=== PATIENT | male | born 1965 | race Caucasian/White ===

== ENCOUNTER → 2017-10-15 | Outpatient (CLI) | payer MEDICARE, SELFPAY | PROVIDERS: Visit Provider Internal Medicine Hematology & Oncology | DX: C34.82 Malignant neoplasm of overlapping sites of left bronchus and lung (principal); Z45.2 Encounter for adjustment and management of vascular access device; I82.409 Acute embolism and thrombosis of unspecified deep veins of unspecified lower extremity; Z03.89 Encounter for observation for other suspected diseases and conditions ruled out | CPT/HCPCS: 80053; 85025; 85610; J1642 ==

== ENCOUNTER → 2017-10-15 | Outpatient (CLI) | payer MEDICARE, SELFPAY | PROVIDERS: Visit Provider Internal Medicine Hematology & Oncology | DX: C34.82 Malignant neoplasm of overlapping sites of left bronchus and lung (principal); Z03.89 Encounter for observation for other suspected diseases and conditions ruled out | CPT/HCPCS: 71260; 74177; Q9967 ==

== ENCOUNTER 2017-11-13 22:08 | Observation (INO) ==
--- NOTE | 2017-11-13 22:39 | Emergency Department Note ---
ED Disposition Clinical Impression: Febrile illness, acute Disposition: Admitted as Observation Condition on Discharge: Good - Critical Care Critical Care Time: No Attestation: On , the high probability of a clinically significant, sudden or life threatening deterioration of the following system(s) required my full and direct attention, intervention and personal management. The time I documented below is in addition to time spent performing reported procedures but includes the following listed in this critical care notation. Medical Decision Making - Medical Records Medical records reviewed: Yes: I reviewed the patient's medical records. Vital Signs: 11/13/17 22:12 11/13/17 23:54 Temperature 101.2 F H 99.6 F Temperature Source Oral Oral Pulse Rate [Right Brachial] 91 H 78 Respiratory Rate 16 16 Blood Pressure [Right Arm] 132/61 117/63 Blood Pressure Mean [Right Arm] 84 81 Blood Pressure Source [Right Arm] Automatic Cuff Blood Pressure Position [Right Arm] Supine 02 Sat by Pulse Oximetry 100 98 Oxygen Delivery Method Room Air - Lab Data Lab results reviewed: Yes: I reviewed the patient's lab results. Lab Results 11/13/17 22:35: WBC 7.6, RBC 3.56 L, Hgb 10.1 L, Hct 30.0 L, MCV 84.1, MCH 28.3 , MCHC 33.6, RDW 15.6, Plt Count 217, MPV 7.0 L, Neut % (Auto) 81.5 H, Lymph % ( Auto) 10.9, [place] % (Auto) 6.3, Eos % (Auto) 1.1, Baso % (Auto) 0.2, Neut # (Auto ) 6.2, Lymph # (Auto) 0.8, [place] # (Auto) 0.5, Eos # (Auto) 0.1, Baso # (Auto) 0.0 11/13/17 22:35: Sodium 137, Potassium 3.5, Chloride 102, Carbon Dioxide 32, Anion Gap 6.5, BUN 20 H, Creatinine 1.28, Estimated Creat Clear 76, Estimated GFR 59, Est GFR ( Amer) 71, Glucose 111 H, Calcium 8.6, Total Bilirubin 0.7, AST 19, ALT 13, Alkaline Phosphatase 131 H, Total Protein 6.4, Albumin 3.2 L, Globulin 3.2, Albumin/Globulin Ratio 1.0 L 11/13/17 22:35: Lactic Acid 1.2 01/27/18 22:35: Influenza Type A Ag Negative, Influenza Type B Ag Negative Result diagrams: 11/13/17 22:35 11/13/17 22:35 Orders (Tests/Meds): ED MEDICATIONS Discontinued Medications Generic Name Dose Route Start Last Admin Trade Name Fransisca PRN Reason Stop Dose Admin Ibuprofen 600 mg 11/13/17 22:22 11/13/17 22:34 Motrin 600mg Tablet PO 11/13/17 22:23 600 mg ONCE ONE Administration ORDERS Category Date Time Status XR chest 2V Stat Exams 11/13/17 22:21 Taken UA [Urinalysis and Microscopic] Stat Lab 11/13/17 22:41 Ordered Blood Culture Stat Micro 11/13/17 22:35 Received - Radiology Data #1 Image(s): Chest Image Reviewed: Yes I reviewed the patient's radiology image Preliminary Findings: Normal/NAD - Physician Consults Physician Consulted: stephanie Reason -: Admission - Carlos Inquiry Pt receiving controlled substance: No Fever HPI - General Chief Complaint: Fever Stated Complaint: Lung Cancer w/ Body Pain and Fever Time Seen by Provider: 11/13/17 22:38 Mode of Arrival: Wheelchair Source of Information: Patient, Spouse, Medical Record Limitations: No Limitations Description of Symptoms (Recalled from ER Triage Doc. by RN): BODYACHES, FEVER. CURRENTLY UNDER RADIATION FOR LUNG CANCER - History of Present Illness HPI Narrative: over the last 2 days achey with fever but no vomiting or diarrhea- has known lung cancer with radiation therapy complaint: fever Onset (ago): day(s) Context: on immunosuppressant(s) Associated symptoms: myalgias, sore throat Relieving factors: acetaminophen - Related Data Allergies Allergy/AdvReac Type Severity Reaction Status Date / Time No Known Allergies Allergy Verified 11/13/17 22:20 [facility] History I have reviewed the patient's past medical history: Yes - *Social History Alcohol Intake: never - Psychiatric History Expresses thoughts of harming self/others: None Suicide Plan Description: No Plan ROS Obtained: Yes All systems reviewed & no additional complaints - Constitutional Constitutional: Reports chills, Reports fever(s), Reports malaise - Eyes Eyes: Denies change in vision - ENT Ears, Nose, Mouth, and Throat: Denies sore throat - Cardiovascular Cardiovascular: Denies chest pain - Respiratory Respiratory: Yes cough, No coughing up blood - Genitourinary Male Genitourinary: Denies hematuria - Musculoskeletal Musculoskeletal: Reports joint pain, Denies joint swelling, Reports muscle aches - Integumentary/Breasts Skin/Breast: Denies rash - Neurologic Neurologic: Denies seizure-like activity Physical Exam - General General appearance: alert, in no apparent distress - Head Head exam: normocephalic - Eye Eye exam: Present: PERRL, EOMI. Absent: scleral icterus - ENT ENT exam: Present: mucous membranes dry - Neck Neck exam: Present: trachea midline. Absent: meningismus - Respiratory Respiratory exam: Present: normal lung sounds bilaterally. Absent: respiratory distress - Cardiovascular Cardiovascular exam: Present: regular rate, systolic murmur. Absent: rubs - Abdominal Exam Abdominal exam: Present: soft - Extremities Exam Extremities exam: Present: full ROM - Back Exam Back exam: Absent: CVA tenderness (R) - Neurological Exam Neurological exam: Present: alert, oriented X3, CN II-XII intact - Skin Skin exam: Absent: rash
[2017-11-13 22:55] LABS: Basophils % 0.2 % (0.1-2.0); Eosinophils # 0.1 K/mm3 (0.0-0.4); Eosinophils % 1.1 % (0.1-12.0); Hemoglobin 10.1 g/dL (14.1-18.0); Lymphocytes # 0.8 K/mm3 (0.7-4.5); Lymphocytes % 10.9 K/mm3 (10-50); Mean Corpuscular HGB Conc 33.6 g/dL (31.8-35.4); Mean Corpuscular Hemoglobin 28.3 pg (27.0-31.2); Mean Corpuscular Volume 84.1 fl (80-94); Monocytes # 0.5 K/mm3 (0.1-1.0); Monocytes % 6.3 % (1.7-9.3); Neutrophils # 6.2 K/mm3 (1.8-7.8); Neutrophils % 81.5 % (37.0-80.0); Platelet Count 217 K/mm3 (142-424); Red Blood Count 3.56 M/mm3 (4.60-6.20); Red Cell Distribution Width 15.6 % (11.5-17.5); White Blood Count 7.6 K/mm3 (4.8-10.8)
[2017-11-13 23:08] LABS: Anion Gap 6.5 mEq/L (5-15); Bilirubin,Total 0.7 mg/dL (0.2-1.0); Calcium 8.6 mg/dL (8.5-10.1); Potassium 3.5 mmoL/L (3.5-5.1)
[2017-11-13 23:09] LABS: Albumin Level 3.2 gm/dL (3.4-5.0); Globulin 3.2 gm/dl (1.3-3.2); Total Protein,Serum 6.4 gm/dL (6.4-8.2)
[2017-11-14 06:22] LABS: Basophils % 0.2 % (0.1-2.0); Eosinophils # 0.2 K/mm3 (0.0-0.4); Eosinophils % 3.7 % (0.1-12.0); Hemoglobin 9.4 g/dL (14.1-18.0); Lymphocytes # 0.9 K/mm3 (0.7-4.5); Lymphocytes % 18.1 K/mm3 (10-50); Mean Corpuscular HGB Conc 33.4 g/dL (31.8-35.4); Mean Corpuscular Hemoglobin 28.2 pg (27.0-31.2); Mean Corpuscular Volume 84.6 fl (80-94); Mean Platelet Volume 7.3 fl (7.4-10.4); Monocytes # 0.4 K/mm3 (0.1-1.0); Monocytes % 9.2 % (1.7-9.3); Neutrophils # 3.2 K/mm3 (1.8-7.8); Neutrophils % 68.7 % (37.0-80.0); Platelet Count 195 K/mm3 (142-424); Red Blood Count 3.33 M/mm3 (4.60-6.20); Red Cell Distribution Width 15.5 % (11.5-17.5); White Blood Count 4.7 K/mm3 (4.8-10.8)
[2017-11-14 06:34] LABS: Hematocrit 28.1 % (42.0-52.0)
[2017-11-14 06:39] LABS: Anion Gap 8.9 mEq/L (5-15); Potassium 3.9 mmoL/L (3.5-5.1)
--- NOTE | 2017-11-14 08:51 | History & Physical Report ---
*Admission Date: 11/13/17 *Chief complaint: fever and muscle aches *History of present illness: Heart his is a 51-year-old white male with a history of lung cancer with metastases to the brain that just started back on a repeat course of radiation therapy last week. He is scheduled for 5 more treatment this coming week. Since resuming his treatments he has generally not felt well but nothing specific until last night when he became weak and developed fever, chills, and muscle aches in his lower back and hips. He did have a slight nonproductive cough. No sore throat congestion. No vomiting or diarrhea. He presented to the emergency room with these complaints and on workup, his white count was normal but had a left shift.. His chest x-ray interpreted in the ER as no active disease but per the radiologist is suspicious of a left lower lobe infiltrate. Flu test in the ER was negative. [facility] History Medical History: Reports:: Cancer (primary lung with brain mets), Deep Vein Thrombosis, Hypertension Comment: Resection of brain tumor - *Social History Educational Level: Completed High School Smoking Status: Never smoker Alcohol Intake: never Occupational Status: disabled Household Members: spouse - Psychiatric History Expresses thoughts of harming self/others: None Suicide Plan Description: No Plan *Family Hx:: Hypertension Comment: Arthritis Review of Systems - Constitutional Reports body ache(s), Reports chills, Reports malaise - Eyes Denies blurry vision, Denies double vision - ENT Reports change in voice, Denies nasal congestion, Denies nasal discharge, Denies sore throat - *Cardiovascular Denies chest pain, Denies shortness of breath - *Respiratory Reports cough (dry), Denies coughing up blood - *Gastrointestinal Denies abdominal pain, Denies heartburn, Denies nausea, Denies vomiting Comments: decreased appetite since start of radiation treatments last week - *Genitourinary Denies difficulty urinating, Denies painful urination - *Musculoskeletal Reports body aches - *Neurologic Denies dizziness, Denies headache(s), Denies seizure-like activity Meds Home Medications Medication Instructions Recorded Confirmed Type Erlotinib HCl [Tarceva] 150 mg PO DAILY 11/14/17 11/14/17 History Folic Acid [Folic Acid 1mg tablet] 1 mg PO DAILY 11/14/17 11/14/17 History Magnesium Oxide [Magox 400] 400 mg PO BID 11/14/17 11/14/17 History Minocycline HCl 100 mg PO DAILY 11/14/17 11/14/17 History Ondansetron HCl [Ondansetron 8mg 8 mg PO Q8HP PRN 11/14/17 11/14/17 History Tab] Oxycodone HCl/Acetaminophen 1 tab PO Q6HP PRN 11/14/17 11/14/17 History [Percocet 5/325mg tablet] Pantoprazole Sodium [Protonix 40mg 40 mg PO DAILY 11/14/17 11/14/17 History tablet] Potassium Chloride [Klor-con 20 20 meq PO DAILY 11/14/17 11/14/17 History mEq tablet] Warfarin Sodium 5 mg PO DAILY 11/14/17 11/14/17 History Allergies Allergy/AdvReac Type Severity Reaction Status Date / Time No Known Allergies Allergy Verified 11/13/17 22:20 Exam Vital signs and Labs for Last 24 Hours: Temp Pulse Resp BP Pulse Ox 97.9 F 67 16 114/49 98 11/14/17 08:00 11/14/17 08:00 11/14/17 08:00 11/14/17 08:00 11/14/17 08:00 Laboratory Results - last 24 hr 11/14/17 05:55: WBC 4.7 L D, RBC 3.33 L, Hgb 9.4 L, Hct 28.1 L, MCV 84.6, MCH 28.2, MCHC 33.4, RDW 15.5, Plt Count 195, MPV 7.3 L, Neut % (Auto) 68.7, Lymph % (Auto) 18.1, [place] % (Auto) 9.2, Eos % (Auto) 3.7, Baso % (Auto) 0.2, Neut # ( Auto) 3.2, Lymph # (Auto) 0.9, [place] # (Auto) 0.4, Eos # (Auto) 0.2, Baso # (Auto ) 0.0 11/14/17 05:55: Sodium 143, Potassium 3.9, Chloride 108 H, Carbon Dioxide 30, Anion Gap 8.9, BUN 20 H, Creatinine 1.24, Estimated Creat Clear 79, Estimated GFR 61, Est GFR ( Amer) 74, Glucose 90 Narrative: Laboratory Results - last 24 hr 11/13/17 22:35: WBC 7.6, RBC 3.56 L, Hgb 10.1 L, Hct 30.0 L, MCV 84.1, MCH 28.3 , MCHC 33.6, RDW 15.6, Plt Count 217, MPV 7.0 L, Neut % (Auto) 81.5 H, Lymph % ( Auto) 10.9, [place] % (Auto) 6.3, Eos % (Auto) 1.1, Baso % (Auto) 0.2, Neut # (Auto ) 6.2, Lymph # (Auto) 0.8, [place] # (Auto) 0.5, Eos # (Auto) 0.1, Baso # (Auto) 0.0 11/13/17 22:35: Sodium 137, Potassium 3.5, Chloride 102, Carbon Dioxide 32, Anion Gap 6.5, BUN 20 H, Creatinine 1.28, Estimated Creat Clear 76, Estimated GFR 59, Est GFR ( Amer) 71, Glucose 111 H, Calcium 8.6, Total Bilirubin 0.7, AST 19, ALT 13, Alkaline Phosphatase 131 H, Total Protein 6.4, Albumin 3.2 L, Globulin 3.2, Albumin/Globulin Ratio 1.0 L 11/13/17 22:35: Lactic Acid 1.2 11/13/17 22:35: Influenza Type A Ag Negative, Influenza Type B Ag Negative 11/14/17 05:55: WBC 4.7 L D, RBC 3.33 L, Hgb 9.4 L, Hct 28.1 L, MCV 84.6, MCH 28.2, MCHC 33.4, RDW 15.5, Plt Count 195, MPV 7.3 L, Neut % (Auto) 68.7, Lymph % (Auto) 18.1, [place] % (Auto) 9.2, Eos % (Auto) 3.7, Baso % (Auto) 0.2, Neut # ( Auto) 3.2, Lymph # (Auto) 0.9, [place] # (Auto) 0.4, Eos # (Auto) 0.2, Baso # (Auto ) 0.0 11/14/17 05:55: Sodium 143, Potassium 3.9, Chloride 108 H, Carbon Dioxide 30, Anion Gap 8.9, BUN 20 H, Creatinine 1.24, Estimated Creat Clear 79, Estimated GFR 61, Est GFR ( Amer) 74, Glucose 90 11/14/17 09:55: Urine Color Yellow, Urine Appearance Clear, Urine pH 6.0, Ur Specific [place] 1.015, Urine Protein Negative, Urine Glucose (UA) Negative, Urine Ketones Negative, Urine Blood Negative, Urine Nitrate Negative, Urine Bilirubin Negative, Urine Urobilinogen 0.2, Ur Leukocyte Esterase Negative, Urine WBC Occasional, Ur Squamous Epith Cells Occasional, Urine Bacteria Trace 11/14/17 11:57: PT 59.5 H, INR 5.42 H - *Routine HEENT Exam Head: Present: normocephalic Eye: Present: EOMI, PERRL. Absent: scleral injection ENT: Present: mucous membranes dry, nares patent. Absent: sinus tenderness - *Routine Respiratory Exam Comments: coarse BS, no rales or wheezes - *Routine Cardiovascular Exam Present: RRR. Absent: murmur - *Routine Abdominal Exam Present: soft. Absent: tenderness, distended H&P: Result - Labs Labs: Short CBC 11/14/17 Range/Units 05:55 WBC 4.7 L D (4.8-10.8) K/mm3 Hgb 9.4 L (14.1-18.0) g/dL Hct 28.1 L (42.0-52.0) % Plt Count 195 (142-424) K/mm3 [facility] 11/14/17 05:55 Sodium 143 Potassium 3.9 Chloride 108 H Carbon Dioxide 30 BUN 20 H Creatinine 1.24 Glucose 90 Assessment and Plan (1) Pneumonia Current visit: Yes Status: Acute Category: Medical Code(s): J18.9 - Pneumonia, unspecified organism (2) Lung cancer metastatic to brain Current visit: Yes Status: Acute Category: Medical Code(s): C34.90 - Malignant neoplasm of unspecified part of unspecified bronchus or lung; C79.31 - Secondary malignant neoplasm of brain - Assessment and plan all Dx Assessment and Plan for all problems:: He is empirically started on Rocepin and Zithromax. WBC shows slight leukopenia today therefore will check Respiratory PCR panel to r/o flu.
[2017-11-14 10:11] LABS: Microscopic, Urine URINE MICROSCOPIC (MICROSCOPIC)
[2017-11-14 10:52] LABS: Appearance,Urine CLEAR (Clear); Bilirubin,Urine Negative (Negative); Blood, Urine Negative (Negative); Color,Urine YELLOW (Yellow); Glucose,Urine (UA) Negative (Negative); Ketones,Urine Negative (Negative); Leukocyte Esterase,Urine Negative (Negative); Protein,Urine Negative (Negative); Specific Gravity, Urine 1.015 (1.005-1.030); Urobilinogen,Urine 0.2 EU/dl (0.2)
[2017-11-14 11:17] LABS: Bacteria,Urine Trace /lpf; Squamous Epithelial Cell,Urine Occasional #/hpf (0-5); WBC,Urine Occasional #/hpf (0-3)
--- NOTE | 2017-11-14 11:20 | Pharmacy Consult Notes ---
[facility] Pharmacy VTE Monitoring - Patient Demographics Admission date: 11/14/17 Report Date: 11/14/17 Time: 11:19 Allergies/Adverse Reactions: Patient Allergies No Known Allergies Allergy (Verified 11/13/17 22:20) Height: 1.83 m Weight: 80.739 kg Patient Problems: Current Active Problems Febrile illness, acute (Acute) - VTE Risk Labs: VTE Related Lab Results Hgb 9.4 g/dL (14.1-18.0) L 11/14/17 05:55 Hct 28.1 % (42.0-52.0) L 11/14/17 05:55 Plt Count 195 K/mm3 (142-424) 11/14/17 05:55 BUN 20 mg/dL (7-18) H 11/14/17 05:55 Creatinine 1.24 mg/dL (0.70-1.30) 11/14/17 05:55 Estimated Creat Clear 79 mL/min (0-300) 11/14/17 05:55 VTE Score: 3 VTE Risk Level: Low Risk - Prophylaxis Types of VTE Prophylaxis: TEDS Knee High Location of Applied Device: Bilateral Lower Extremeties - VTE Diagnosis Confirmed Comment: SUKI NEWMAN
[2017-11-14 12:16] LABS: INR 5.42 (0.9-1.1); Prothrombin Time 59.5 seconds (9.4-11.8)
[2017-11-14 15:16] LABS: Coronavirus 229E Not Detected (NotDetected); Coronavirus NL63 Not Detected (NotDetected); Coronavirus OC43 Not Detected (NotDetected); Coronovirus HKU1,PCR Not Detected (NotDetected)
[2017-11-15 06:44] LABS: Basophils % 0.1 % (0.1-2.0); Eosinophils # 0.1 K/mm3 (0.0-0.4); Eosinophils % 1.5 % (0.1-12.0); Hematocrit 28.1 % (42.0-52.0); Hemoglobin 9.3 g/dL (14.1-18.0); Mean Corpuscular Volume 84.8 fl (80-94); Mean Platelet Volume 7.3 fl (7.4-10.4); Monocytes # 0.4 K/mm3 (0.1-1.0); Monocytes % 8.4 % (1.7-9.3); Neutrophils # 3.7 K/mm3 (1.8-7.8); Platelet Count 193 K/mm3 (142-424); Red Blood Count 3.32 M/mm3 (4.60-6.20); Red Cell Distribution Width 15.6 % (11.5-17.5); White Blood Count 5.2 K/mm3 (4.8-10.8)
[2017-11-15 06:58] LABS: Anion Gap 10.6 mEq/L (5-15); Potassium 3.6 mmoL/L (3.5-5.1)
--- NOTE | 2017-11-15 08:24 | Discharge Summary ---
General - General Admission date: 11/13/17 <Kirill Stewart - 11/15/17 08:25> Discharge date: 11/15/17 <Анна Flores - 11/16/17 13:55> HPI HPI: Brady is a 51-year-old white male with a history of lung cancer with metastases to the brain that just started back on a repeat course of radiation therapy last week. He is scheduled for 5 more treatment this coming week. Since resuming his treatments he has generally not felt well but nothing specific until last night when he became weak and developed fever, chills, and muscle aches in his lower back and hips. He did have a slight nonproductive cough. No sore throat congestion. No vomiting or diarrhea. He presented to the emergency room with these complaints and on workup, his white count was normal but had a left shift.. His chest x-ray was interpreted in the ER as no active disease but per the radiologist was suspicious of a left lower lobe infiltrate. Flu test in the ER was negative. He was admitted for further treatment. <TerryKirill Sean - 11/15/17 17:56> Objective Vital signs: Temp Pulse Resp BP Pulse Ox 99.5 F 94 H 20 128/58 98 11/15/17 08:00 11/15/17 08:00 11/15/17 08:00 11/15/17 08:00 11/15/17 08:00 <Анна Flores - 11/16/17 13:55> Temp Pulse Resp BP Pulse Ox 98.3 F 78 18 96/43 95 11/15/17 05:18 11/15/17 06:01 11/15/17 05:18 11/15/17 05:18 11/15/17 05:18 <Kirill Stewart - 11/15/17 08:25> Narrative: - *Routine HEENT Exam Head: Present: normocephalic Eye: Present: EOMI, PERRL. Absent: scleral injection ENT: Present: mucous membranes dry, nares patent. Absent: sinus tenderness - *Routine Respiratory Exam Comments: coarse BS, no rales or wheezes - *Routine Cardiovascular Exam Present: RRR. Absent: murmur - *Routine Abdominal Exam Present: soft. Absent: tenderness, distended <Анна Flores - 11/16/17 13:55> Hospital Course Hospital Course: He was empirically started on Rocepin and Zithromax. WBC showed slight leukopenia, therefore a Respiratory PCR panel was ordered to r/o flu. PCR panel was negative. CXR did show a left basilar pneumonia. The patient improved and was stable to be discharged home on zithromax and cefuroxime as well as duonebs. He will f/u in the office of [facility]. <Анна Flores - 11/16/17 13:55> Results Labs on day of discharge: Preliminary micro results at discharge 11/14/17 15:05 Sputum Culture - Preliminary Sputum - Expectorated Sputum <Анна Flores - 11/16/17 13:55> Labs from last 24 hours 11/15/17 11/15/17 11/14/17 06:15 06:15 15:07 WBC 5.2 RBC 3.32 L Hgb 9.3 L Hct 28.1 L MCV 84.8 MCH 28.0 MCHC 33.0 RDW 15.6 Plt Count 193 MPV 7.3 L Neut % (Auto) 70.0 Lymph % (Auto) 20.0 [place] % (Auto) 8.4 Eos % (Auto) 1.5 Baso % (Auto) 0.1 Neut # (Auto) 3.7 Lymph # (Auto) 1.0 [place] # (Auto) 0.4 Eos # (Auto) 0.1 Baso # (Auto) 0.0 Sodium 142 Potassium 3.6 Chloride 106 Carbon Dioxide 29 Anion Gap 10.6 BUN 13 D Creatinine 1.11 Estimated Creat Clear 88 Estimated GFR 69 Est GFR ( Amer) 84 Glucose 95 Chlamy pneumoniae PCR Not detected Adenovirus (PCR) Not detected B.parapertussis DNA PCR Not detected Coronavirus OC43 (PCR) Not detected Coronavirus HKU1 (PCR) Not detected Coronavirus 229E (PCR) Not detected Coronavirus NL63 (PCR) Not detected Human Metapneumovir PCR Not detected Influenza A (H1) PCR Not detected Influ A (H1N1/09) PCR Not detected Influenza A (H3) PCR Not detected Influenza Type A (PCR) Not detected Influenza Type B (PCR) Not detected M. pneumoniae (PCR) Not detected Parainfluenza 1 (PCR) Not detected Parainfluenza 2 (PCR) Not detected Parainfluenza 3 (PCR) Not detected Parainfluenza 4 (PCR) Not detected RSV (PCR) Not detected Entero/Rhino (PCR) Not detected <Kirill Stewart - 11/15/17 08:25> DS: Diagnosis - Discharge Diagnosis (1) Pneumonia Status: Acute (2) Lung cancer metastatic to brain Status: Acute <Kirill Stewart - 11/15/17 17:54> Meds Home Medications Medication Instructions Recorded Confirmed Type Erlotinib HCl [Tarceva] 150 mg PO DAILY 11/14/17 11/14/17 History Folic Acid [Folic Acid 1mg tablet] 1 mg PO DAILY 11/14/17 11/14/17 History Magnesium Oxide [Magox 400] 400 mg PO BID 11/14/17 11/14/17 History Minocycline HCl 100 mg PO DAILY 11/14/17 11/14/17 History Ondansetron HCl [Ondansetron 8mg 8 mg PO Q8HP PRN 11/14/17 11/14/17 History Tab] Oxycodone HCl/Acetaminophen 1 tab PO Q6HP PRN 11/14/17 11/14/17 History [Percocet 5/325mg tablet] Pantoprazole Sodium [Protonix 40mg 40 mg PO DAILY 11/14/17 11/14/17 History tablet] Potassium Chloride [Klor-con 20 20 meq PO DAILY 11/14/17 11/14/17 History mEq tablet] Warfarin Sodium 5 mg PO DAILY 11/14/17 11/14/17 History <Анна Flores - 11/16/17 13:55> Allergies Allergy/AdvReac Type Severity Reaction Status Date / Time No Known Allergies Allergy Verified 11/13/17 22:20 <Анна Flores - 11/16/17 13:55> Discharge Plan - Patient Discharge Instructions ACTIVITY: Continue current activity <Kirill Stewart - 11/15/17 08:25> DIET: continue same diet <Kirill Stewart - 11/15/17 08:25> Additional Instructions: Hold Warfarin and recheck INR in 2 days <Анна Flores - 11/16/17 13:55> Patient Instructions: Coumadin Vitamin K/ Diet, Coumadin Therapy Booklet < Анна Flores - 11/16/17 13:55> - Follow up Plan Follow up with: Kirill Stewart MD [Primary Care Provider] - 1 week < Анна Flores - 11/16/17 13:55> Disposition: Home, Self-Care <Анна Flores - 11/16/17 13:55> Home Medications: Home Medications Medication Instructions Recorded Confirmed Type Erlotinib HCl [Tarceva] 150 mg PO DAILY 11/14/17 11/14/17 History Folic Acid [Folic Acid 1mg tablet] 1 mg PO DAILY 11/14/17 11/14/17 History Magnesium Oxide [Magox 400] 400 mg PO BID 11/14/17 11/14/17 History Minocycline HCl 100 mg PO DAILY 11/14/17 11/14/17 History Ondansetron HCl [Ondansetron 8mg 8 mg PO Q8HP PRN 11/14/17 11/14/17 History Tab] Oxycodone HCl/Acetaminophen 1 tab PO Q6HP PRN 11/14/17 11/14/17 History [Percocet 5/325mg tablet] Pantoprazole Sodium [Protonix 40mg 40 mg PO DAILY 11/14/17 11/14/17 History tablet] Potassium Chloride [Klor-con 20 20 meq PO DAILY 11/14/17 11/14/17 History mEq tablet] Warfarin Sodium 5 mg PO DAILY 11/14/17 11/14/17 History <Анна Flores - 11/16/17 13:55> Prescriptions/Medication Reconciliation: New Azithromycin [Zithromax 250mg tab] 250 mg PO DAILY #3 tab cefUROXime axetil [Cefuroxime 500mg Tab] 500 mg PO BID #16 tab Ipratropium/Albuterol Sulfate [Duoneb 3mL neb] 3 ml IH TID #30 neb Continue Potassium Chloride [Klor-con 20 mEq tablet] 20 meq PO DAILY Warfarin Sodium 5 mg PO DAILY Oxycodone HCl/Acetaminophen [Percocet 5/325mg tablet] 1 tab PO Q6HP PRN PRN Reason: Moderate Pain Minocycline HCl 100 mg PO DAILY Magnesium Oxide [Magox 400] 400 mg PO BID Folic Acid [Folic Acid 1mg tablet] 1 mg PO DAILY Erlotinib HCl [Tarceva] 150 mg PO DAILY Pantoprazole Sodium [Protonix 40mg tablet] 40 mg PO DAILY Ondansetron HCl [Ondansetron 8mg Tab] 8 mg PO Q8HP PRN PRN Reason: Nausea And Vomiting <Анна Flores - 11/16/17 13:55>
[2017-11-15 08:49] VITALS: BP 128/58
== END 2017-11-15 10:46 | disposition home or self-care (01) ==
LOC: 2ND 22:08 → ER 22:08 → 2ND 11-14 00:40
PROVIDERS: ADMIT Family Medicine; ATTEND Family Medicine

== ENCOUNTER 2017-11-18 11:00 | Outpatient (CLI) | payer MEDICARE, SELFPAY ==
[2017-11-18 11:20] VITALS: BP 114/63; PULSE 84; RESP 18; TEMP 37; O2SAT 98
[2017-11-18 11:22] VITALS: BMI 24.1
[2017-11-18 11:45] LABS: INR 1.18 (0.9-1.1); Prothrombin Time 12.8 seconds (9.4-11.8)
== END 2017-11-18 11:45 | disposition home or self-care (01) ==
LOC: INF 11:01
PROVIDERS: PCP Family Medicine; Visit Provider Family Medicine
DX: Z86.718 Personal history of other venous thrombosis and embolism (principal); Z79.01 Long term (current) use of anticoagulants; Z51.81 Encounter for therapeutic drug level monitoring
CPT/HCPCS: 85610

== ENCOUNTER 2017-11-21 21:20 | Emergency (ER) | payer MEDICARE, SELFPAY ==
[2017-11-21 21:29] VITALS: BP 136/72; PULSE 97; RESP 12; TEMP 37.1; O2SAT 99; BMI 24.1
--- NOTE | 2017-11-21 23:31 | XR_ITS ---
XR hip RT 2-3V w/pelvis HISTORY: Right hip pain with limited range of motion ITS.REASON: pain right hip ORDERING PHYSICIAN: Diogo Plummer MD PATIENT AGE: 51 years COMPARISON: None FINDINGS: No fracture or dislocation. No lytic or blastic change. There are minimal osteoarthritic changes of the right hip with minimal osteophyte formation along the acetabulum. IMPRESSION: 1. No acute finding. 2. Minimal osteoarthritic change
[2017-11-22 00:17] VITALS: BP 133/70; PULSE 88; RESP 14; O2SAT 98
--- NOTE | 2017-11-22 00:18 | PC.NURSE ---
pt.returned from x-ray. vital signs obtained. Pulse check in right foot-strong.
--- NOTE | 2017-11-22 00:18 | HMH.EDGENADL ---
ED Disposition Clinical Impression: Right hip pain Disposition: Home, Self-Care Condition on Discharge: Good Instructions: DI for Acute Pain -- Adult Additional Instructions: Please return to this ER in the morning (11/22/17) between 8-8:30am for an ultrasound of your right lower extremity. Referrals: Kirill Stewart MD [Primary Care Provider] - Time of Disposition: 00:20 - Critical Care Critical Care Time: No Attestation: On 11/21/17, the high probability of a clinically significant, sudden or life threatening deterioration of the following system(s) required my full and direct attention, intervention and personal management. The time I documented below is in addition to time spent performing reported procedures but includes the following listed in this critical care notation. Medical Decision Making - Medical Records Medical records reviewed: Yes: I reviewed the patient's medical records. Vital Signs: 11/21/17 21:29 11/22/17 00:17 11/22/17 00:32 Temperature 98.8 F 98.8 F Temperature Source Oral Oral Pulse Rate 80 Pulse Rate [Right Radial] 97 H 88 Respiratory Rate 12 14 18 Blood Pressure 118/78 Blood Pressure [Right Arm] 136/72 133/70 Blood Pressure Mean [Right Arm] 93 91 Blood Pressure Source Automatic Cuff Blood Pressure Source [Right Arm] Automatic Cuff Automatic Cuff Blood Pressure Position Sitting Blood Pressure Position [Right Arm] Supine Supine 02 Sat by Pulse Oximetry 99 98 Oxygen Delivery Method Room Air Room Air Room Air Orders (Tests/Meds): ED MEDICATIONS Discontinued Medications Generic Name Dose Route Start Last Admin Trade Name Freq PRN Reason Stop Dose Admin Enoxaparin Sodium 80 mg 11/21/17 23:31 11/21/17 23:36 Lovenox 80mg/0.8ml Syringe SQ 11/21/17 23:32 80 mg ONCE ONE Administration - Radiology Data #1 Image(s): Hip (right) Image Reviewed: Yes I reviewed the patient's radiology image Preliminary Findings: Normal/NAD - Carlos Inquiry Pt receiving controlled substance: No - Reevaluation(s) Time: 00:10 Reevaluation #1: Patient instructed to return in the morning in order to have a venous Doppler of the right lower extremity to rule out a DVT. Patient advised to be here between 8 and 8:30 AM, as there is no retail pharmacy technician available in the hospital at this time. Patient understands the importance of this additional test, as well as related possible complications. A Lovenox shot was given prophylactically prior to discharge. Patient denies any chest pain, denies any shortness of breath at this time. Patient also understands that current visit reflects his medical condition at this time, and the fact that he is mandatory to return here for additional testing, as well as call and reschedule another visit with oncologist as soon as possible. General Adult HPI - General Chief complaint: PAIN Stated complaint: Fever, Back & Leg pain, Cancer patient Mode of Arrival: Ambulatory Limitations: No Limitations Description of Symptoms (Recalled from ER Triage Doc. by RN): right thigh pain, pneumonia last week, percocet not helping - History of Present Illness HPI narrative: Patient is a 48-year-old lung cancer patient, with known metastases to the brain presenting to the emergency room with right hip pain for last 2 weeks, gradually getting worse. Patient stated that he has forgot to mention this condition to the oncologist, however when he disclosed it yesterday he was advised to go to the closest emergency room and have additional workup done in order to clarify the etiology of this problem. - Related Data Home Medications Medication Instructions Recorded Confirmed Erlotinib HCl [Tarceva] 150 mg PO DAILY 11/14/17 11/21/17 Folic Acid [Folic Acid 1mg tablet] 1 mg PO DAILY 11/14/17 11/21/17 Magnesium Oxide [Magox 400] 400 mg PO BID 11/14/17 11/21/17 Minocycline HCl 100 mg PO DAILY 11/14/17 11/21/17 Ondansetron HCl [Ond
--- NOTE | 2017-11-22 00:21 | ED_ITS ---
ED Disposition Clinical Impression: Right hip pain Disposition: Home, Self-Care Condition on Discharge: Good Instructions: DI for Acute Pain -- Adult Additional Instructions: Please return to this ER in the morning (11/22/17) between 8-8:30am for an ultrasound of your right lower extremity. Referrals: Kirill Stewart MD [Primary Care Provider] - Time of Disposition: 00:20 - Critical Care Critical Care Time: No Attestation: On 11/21/17, the high probability of a clinically significant, sudden or life threatening deterioration of the following system(s) required my full and direct attention, intervention and personal management. The time I documented below is in addition to time spent performing reported procedures but includes the following listed in this critical care notation. Medical Decision Making - Medical Records Medical records reviewed: Yes: I reviewed the patient's medical records. Vital Signs: 11/21/17 21:29 11/22/17 00:17 11/22/17 00:32 Temperature 98.8 F 98.8 F Temperature Source Oral Oral Pulse Rate 80 Pulse Rate [Right Radial] 97 H 88 Respiratory Rate 12 14 18 Blood Pressure 118/78 Blood Pressure [Right Arm] 136/72 133/70 Blood Pressure Mean [Right Arm] 93 91 Blood Pressure Source Automatic Cuff Blood Pressure Source [Right Arm] Automatic Cuff Automatic Cuff Blood Pressure Position Sitting Blood Pressure Position [Right Arm] Supine Supine 02 Sat by Pulse Oximetry 99 98 Oxygen Delivery Method Room Air Room Air Room Air Orders (Tests/Meds): ED MEDICATIONS Discontinued Medications Generic Name Dose Route Start Last Admin Trade Name Freq PRN Reason Stop Dose Admin Enoxaparin Sodium 80 mg 11/21/17 23:31 11/21/17 23:36 Lovenox 80mg/0.8ml Syringe SQ 11/21/17 23:32 80 mg ONCE ONE Administration - Radiology Data #1 Image(s): Hip (right) Image Reviewed: Yes I reviewed the patient's radiology image Preliminary Findings: Normal/NAD - Carlos Inquiry Pt receiving controlled substance: No - Reevaluation(s) Time: 00:10 Reevaluation #1: Patient instructed to return in the morning in order to have a venous Doppler of the right lower extremity to rule out a DVT. Patient advised to be here between 8 and 8:30 AM, as there is no service desk technician available in the hospital at this time. Patient understands the importance of this additional test, as well as related possible complications. A Lovenox shot was given prophylactically prior to discharge. Patient denies any chest pain, denies any shortness of breath at this time. Patient also understands that current visit reflects his medical condition at this time, and the fact that he is mandatory to return here for additional testing, as well as call and reschedule another visit with oncologist as soon as possible. General Adult HPI - General Chief complaint: PAIN Stated complaint: Fever, Back & Leg pain, Cancer patient Mode of Arrival: Ambulatory Limitations: No Limitations Description of Symptoms (Recalled from ER Triage Doc. by RN): right thigh pain, pneumonia last week, percocet not helping - History of Present Illness HPI narrative: Patient is a 48-year-old lung cancer patient, with known metastases to the brain presenting to the emergency room with right hip pain for last 2 weeks, gradually getting wor
[2017-11-22 00:32] VITALS: BP 118/78; PULSE 80; RESP 18; TEMP 37.1; O2SAT 99
== END 2017-11-22 00:34 | disposition home or self-care (01) ==
PROVIDERS: Emergency Provider Emergency Medicine; PCP Family Medicine
DX: M25.551 Pain in right hip (principal); C34.90 Malignant neoplasm of unspecified part of unspecified bronchus or lung; C79.31 Secondary malignant neoplasm of brain; I10 Essential (primary) hypertension; Z79.01 Long term (current) use of anticoagulants; Z79.899 Other long term (current) drug therapy
CPT/HCPCS: 73502; 96372; 99282

== ENCOUNTER → 2017-11-22 09:56 | Outpatient (CLI) | payer MEDICARE, SELFPAY ==
--- NOTE | 2017-11-22 10:02 | NVE_ITS ---
Venous Exam Indications: 729.5 Pain in limb. 729.5 Pain in limb. 782.3 Edema. IMPRESSIONS Acute deep vein thrombosis involving the right popliteal vein History: Right lower extremity pain. PMH: Deep vein thrombosis. Patient had a blood clot 06/14/17 in bilateral POPV, PTV, PERV. Risk factors: Malignancy: Lung Cancer. Patient was taking Warfarin until last weekend when it was stopped in Hospital. He states he was in the hospital for pneumonia and the Warfarin was stopped at that time. Pain began yesterday in the right lower extremity. He denies trauma. He was brought to the emergency department 11/21/17 and received a Lovenox injection at that time. Complete lower extremity venous duplex evaluation. Doppler flow study including spectral analysis, color and king scale imaging. Location: Vascular laboratory. Patient status: Outpatient. CRITICAL FINDINGS - Reported to: BIRDIE Garcia - Read back and verified. - 11/22/17 - 11:10 - DVT in RLE POPV Tables: Venous flow and imaging: + + + + + Location Overall Flow properties Comments + + + + + Right common femoral Patent Normal phasicity; spontaneous; normal augmentation; compressible + + + + + Right saphenofemoral Patent Compressible junction + + + + + Right profunda Patent Compressible femoral + + + + + Right femoral Partially Normal phasicity; DVT seen in occluded spontaneous; normal distal SFV augmentation; compressible; no reflux + + + + + Right greater Patent Normal phasicity; saphenous spontaneous; normal augmentation; compressible + + + + + Right popliteal Partially Noncompressible occluded + + + + + Right posterior Patent Compressible tibial + + + + + Right peroneal Patent Compressible + + + + + Right gastrocnemius Patent Compressible
== END ==
PROVIDERS: PCP Family Medicine; Visit Provider Family Medicine
DX: M79.605 Pain in left leg (principal)
CPT/HCPCS: 93970

== ENCOUNTER 2017-11-29 11:30 | Outpatient (CLI) | payer MEDICARE, SELFPAY ==
[2017-11-29 11:37] VITALS: BMI 23.4
[2017-11-29 12:21] LABS: Basophils % 0.2 % (0.1-2.0); Eosinophils # 0.1 K/mm3 (0.0-0.4); Hematocrit 29.7 % (42.0-52.0); Hemoglobin 9.8 g/dL (14.1-18.0); Lymphocytes # 0.7 K/mm3 (0.7-4.5); Lymphocytes % 10.8 K/mm3 (10-50); Mean Corpuscular HGB Conc 32.9 g/dL (31.8-35.4); Mean Corpuscular Hemoglobin 27.5 pg (27.0-31.2); Mean Corpuscular Volume 83.8 fl (80-94); Mean Platelet Volume 6.8 fl (7.4-10.4); Monocytes # 0.4 K/mm3 (0.1-1.0); Monocytes % 5.5 % (1.7-9.3); Neutrophils # 5.2 K/mm3 (1.8-7.8); Neutrophils % 82.4 % (37.0-80.0); Platelet Count 365 K/mm3 (142-424); Red Blood Count 3.55 M/mm3 (4.60-6.20); White Blood Count 6.3 K/mm3 (4.8-10.8)
[2017-11-29 12:30] LABS: Alanine Aminotransferase 21 U/L (12-78); Albumin Level 3.2 gm/dL (3.4-5.0); Albumin/Globulin Ratio 0.8 (1.1-1.8); Alkaline Phosphatase 145 U/L (46-116); Anion Gap 13.8 mEq/L (5-15); Aspartate Amino Transferase 24 U/L (15-37); Bilirubin,Total 0.6 mg/dL (0.2-1.0); Blood Urea Nitrogen 18 mg/dL (7-18); Calcium 9.2 mg/dL (8.5-10.1); Carbon Dioxide 27 mmol/L (21.0-32.0); Chloride 101 mmol/L (98-107); Creatinine Clearance Estimated 75 mL/min (0-300); Creatinine,Serum 1.26 mg/dL (0.70-1.30); Estimated Glomerular Filt Rate 60 ml/min (>60); GFR (African American) 72 ML/MIN (>60); Globulin 3.9 gm/dl (1.3-3.2); Glucose 97 mg/dL (74-106); Potassium 3.8 mmoL/L (3.5-5.1); Sodium 138 mmol/L (136-145); Total Protein,Serum 7.1 gm/dL (6.4-8.2)
== END 2017-11-29 12:00 | disposition home or self-care (01) ==
LOC: INF 11:34
PROVIDERS: PCP Family Medicine; Visit Provider Internal Medicine Hematology & Oncology
DX: C71.1 Malignant neoplasm of frontal lobe (principal)
CPT/HCPCS: 80053; 85025; J1642

== ENCOUNTER 2017-12-02 09:04 | Outpatient (CLI) | payer MEDICARE, SELFPAY ==
--- NOTE | 2017-12-02 09:22 | MR_ITS ---
MR hip RT wo/w con HISTORY: ITS.REASON: PAIN IN RIGHT HIP, right hip pain, lung cancer, ORDERING PHYSICIAN: Nirmala Esposito PATIENT AGE: 51 years TECHNIQUE: Multiplanar multiecho sequences are performed without and with contrast. FINDINGS: There are multiple metastatic foci present within the pelvis and bilateral hips. There are multiple lesions too numerous to count. Mortise felt to be the most significant lesions will be described below. 13 mm lesion in the right femoral head anteriorly with surrounding edema. The edema measures up to 2.5 cm in the anterior aspect of the right femoral head. There is a 9 mm lesion in the proximal shaft of the right femur. 8 mm lesion in the right femoral neck, multiple lesions in the right ilium measuring up to 2.9 x 1.4 cm in the region of the anterior superior iliac spine. Multiple lesions are present in the right acetabulum measuring up to 17 mm in the acetabular roof laterally, 14 mm in the medial aspect of the right acetabulum, and 10 mm in the infra aspect of the right acetabulum. There is a larger lesion in the right ischium measuring 4 cm cephalad to caudad and 2.5 cm transverse extending from the inferior aspect of the right acetabulum into the ischial tuberosity. On the left 2.5 cm lesion along the medial wall of the acetabulum anteriorly. There are multiple lesions in the left femoral neck and proximal femur including a 7 mm lesion in the medial aspect of the femoral head on the left and a 5 mm lesion in the left femoral neck as well as a 12 mm lesion in the intertrochanteric region and a 14 mm lesion in the proximal left femur.. Scattered lesions are present in the left ilium and at least one lesion in the lateral aspect of the left sacrum. 12 mm lesion is present in the superior aspect of the S1 region of the sacrum. There is a 3.4 cm lesion involving the left sacrum laterally IMPRESSION: Multiple pelvic and hip metastatic lesions as detailed above. The largest lesions are in the right femoral head, right ischium, left acetabulum, and left aspect of the sacrum. Multiple other lesions are however present including bilateral acetabula by, bilateral ilei, and bilateral femurs
== END 2017-12-02 10:43 | disposition home or self-care (01) ==
LOC: INF 09:12
PROVIDERS: PCP Family Medicine; Visit Provider Internal Medicine Hematology & Oncology
DX: M25.551 Pain in right hip (principal)
CPT/HCPCS: 73723; J1642

== ENCOUNTER 2017-12-16 14:20 | Outpatient (CLI) | payer MEDICARE, SELFPAY ==
[2017-12-16 14:35] VITALS: BMI 23.0
[2017-12-16 14:57] LABS: Basophils % 0.3 % (0.1-2.0); Eosinophils # 0.1 K/mm3 (0.0-0.4); Eosinophils % 1.5 % (0.1-12.0); Hematocrit 31.9 % (42.0-52.0); Hemoglobin 10.3 g/dL (14.1-18.0); Lymphocytes # 0.8 K/mm3 (0.7-4.5); Lymphocytes % 14.8 K/mm3 (10-50); Mean Corpuscular HGB Conc 32.2 g/dL (31.8-35.4); Mean Corpuscular Hemoglobin 26.6 pg (27.0-31.2); Mean Corpuscular Volume 82.5 fl (80-94); Mean Platelet Volume 7.7 fl (7.4-10.4); Monocytes # 0.3 K/mm3 (0.1-1.0); Monocytes % 5.6 % (1.7-9.3); Neutrophils # 4.1 K/mm3 (1.8-7.8); Neutrophils % 77.8 % (37.0-80.0); Platelet Count 286 K/mm3 (142-424); Red Blood Count 3.87 M/mm3 (4.60-6.20); White Blood Count 5.3 K/mm3 (4.8-10.8)
[2017-12-16 15:11] LABS: Alanine Aminotransferase 15 U/L (12-78); Albumin Level 3.3 gm/dL (3.4-5.0); Albumin/Globulin Ratio 0.9 (1.1-1.8); Alkaline Phosphatase 180 U/L (46-116); Anion Gap 11.5 mEq/L (5-15); Aspartate Amino Transferase 33 U/L (15-37); Bilirubin,Total 0.7 mg/dL (0.2-1.0); Blood Urea Nitrogen 20 mg/dL (7-18); Carbon Dioxide 29 mmol/L (21.0-32.0); Chloride 102 mmol/L (98-107); Creatinine Clearance Estimated 83 mL/min (0-300); Creatinine,Serum 1.12 mg/dL (0.70-1.30); Estimated Glomerular Filt Rate 69 ml/min (>60); GFR (African American) 83 ML/MIN (>60); Globulin 3.8 gm/dl (1.3-3.2); Glucose 96 mg/dL (74-106); Potassium 3.5 mmoL/L (3.5-5.1); Sodium 139 mmol/L (136-145); Total Protein,Serum 7.1 gm/dL (6.4-8.2)
[2017-12-16 15:20] VITALS: BP 97/47; PULSE 88; RESP 20; TEMP 36.8; O2SAT 95
== END 2017-12-16 15:30 | disposition home or self-care (01) ==
LOC: INF 14:33
PROVIDERS: PCP Family Medicine; Visit Provider Internal Medicine Hematology & Oncology
DX: C34.82 Malignant neoplasm of overlapping sites of left bronchus and lung (principal)
CPT/HCPCS: 80053; 85025; J1642

== ENCOUNTER 2017-12-20 16:53 | Observation (INO) | payer MEDICARE, SELFPAY ==
[2017-12-20 17:13] VITALS: BMI 22.9
[2017-12-20 17:22] VITALS: BP 176/82; PULSE 93; RESP 20; TEMP 36.8; O2SAT 100
[2017-12-20 18:22] LABS: Alanine Aminotransferase 13 U/L (12-78); Albumin Level 3.1 gm/dL (3.4-5.0); Albumin/Globulin Ratio 0.9 (1.1-1.8); Alkaline Phosphatase 171 U/L (46-116); Anion Gap 11.9 mEq/L (5-15); Aspartate Amino Transferase 22 U/L (15-37); Bilirubin,Total 0.9 mg/dL (0.2-1.0); Blood Urea Nitrogen 24 mg/dL (7-18); Calcium 8.8 mg/dL (8.5-10.1); Carbon Dioxide 26 mmol/L (21.0-32.0); Chloride 101 mmol/L (98-107); Creatinine Clearance Estimated 76 mL/min (0-300); Estimated Glomerular Filt Rate 63 ml/min (>60); GFR (African American) 76 ML/MIN (>60); Globulin 3.6 gm/dl (1.3-3.2); Glucose 109 mg/dL (74-106); Potassium 3.9 mmoL/L (3.5-5.1); Sodium 135 mmol/L (136-145); Total Protein,Serum 6.7 gm/dL (6.4-8.2)
[2017-12-20 18:37] LABS: Basophils % 0.1 % (0.1-2.0); Eosinophils % 0.2 % (0.1-12.0); Hematocrit 30.1 % (42.0-52.0); Hemoglobin 9.6 g/dL (14.1-18.0); Lymphocytes # 0.4 K/mm3 (0.7-4.5); Lymphocytes % 4.9 K/mm3 (10-50); Mean Corpuscular HGB Conc 31.9 g/dL (31.8-35.4); Mean Corpuscular Hemoglobin 26.8 pg (27.0-31.2); Mean Platelet Volume 6.9 fl (7.4-10.4); Monocytes # 0.3 K/mm3 (0.1-1.0); Monocytes % 4.4 % (1.7-9.3); Neutrophils # 6.6 K/mm3 (1.8-7.8); Neutrophils % 90.4 % (37.0-80.0); Platelet Count 197 K/mm3 (142-424); Red Blood Count 3.59 M/mm3 (4.60-6.20); Red Cell Distribution Width 16.2 % (11.5-17.5); White Blood Count 7.3 K/mm3 (4.8-10.8)
[2017-12-20 18:39] LABS: MANUAL DIFFERENTIAL MANUAL DIFFERENTIAL (MANUAL DIFF)
--- NOTE | 2017-12-20 18:54 | HMH.HP ---
*Admission Date: 12/20/17 *Chief complaint: Intractable neck pain *History of present illness: Mr. 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 He had an appointment in the office today for checkup on his INR. He noted that he had a stiff neck for a couple of days which he attributed to sleeping wrong. When he was called back from the waiting room to the exam room, he turned his neck to the left and had a sudden excruciating pain radiating from the lower left side of his neck to the base of the skull. He then could not move his neck without severe pain. Despite attempts at manual massage and ice therapy in the office, he got no relief. He was then referred to the physical therapy department at the hospital and underwent ultrasound, E-stim and deep tissue massage again with no significant relief in his pain. He also was given an injection of 30 mg of Toradol in the office. Despite these measures, he had no improvement with his pain. The decision was then made to admit him to the hospital for treatment of intractable pain. [facility] History Medical History: Reports:: Cancer (primary lung with brain mets), Deep Vein Thrombosis, Hypertension Denies:: Diabetes Mellitus Type 1, Diabetes Mellitus Type 2, MRSA Other Surgeries: Yes: Other (brain tumor, lung) Amputation: No Fractures: No - *Social History Smoking Status: Never smoker Alcohol Intake: former Alcohol Intake Frequency:: holidays/special occasions only Occupational Status: disabled Household Members: spouse - Psychiatric History Expresses thoughts of harming self/others: None Suicide Plan Description: No Plan *Family Hx:: Hypertension Review of Systems - Constitutional Reports fatigue, Reports lack of energy, Reports weakness - Eyes Denies blurry vision, Denies double vision - ENT Denies dizziness, Denies difficulty swallowing, Denies headache(s) - *Cardiovascular Denies chest pain, Denies shortness of breath - *Respiratory Denies chest congestion, Denies cough, Denies shortness of breath - *Gastrointestinal Denies abdominal pain, Denies nausea, Denies vomiting - *Genitourinary Denies difficulty urinating, Denies painful urination - *Musculoskeletal Comments: See HPI - Integumentary/Breasts Denies change in skin color, Denies itching, Denies rash - *Neurologic Denies confusion, Denies dizziness, Denies numbness Comments: no radicular symptoms - Psychiatric Reports depression, Denies anxiety, Denies thoughts of hurting/killing others - Endocrine Denies cold intolerance, Denies excessive sweating - Hematologic/Lymphatic Denies easy bleeding, Denies easy bruising - Allergic/Immunologic Denies itchy eyes, Denies hives, Denies wheezing Meds Home Medications Medication Instructions Recorded Confirmed Type Erlotinib HCl [Tarceva] 150 mg PO DAILY 11/14/17 12/20/17 History Folic Acid [Folic Acid 1mg tablet] 1 mg PO DAILY 11/14/17 12/20/17 History Magnesium Oxide [Magox 400] 400 mg PO BID 11/14/17 12/20/17 History Minocycline HCl 100 mg PO DAILY 11/14/17 12/20/17 History Ondansetron HCl [Ondansetron 8mg 8 mg PO Q8HP PRN 11/14/17 12/20/17 History Tab] Oxycodone HCl/Acetaminophen 1 tab PO Q6HP PRN 11/14/17 12/20/17 History [Percocet 5/325mg tablet] Pantoprazole Sodium [Protonix 40mg 40 mg PO DAILY 11/14/17 12/20/17 History tablet] Potassium Chloride [Klor-con 20 20 meq PO DAILY 11/14/17 12/20/17 History mEq tablet] Warfarin Sodium 5 mg PO DAILY 11/14/17 12/20/17 History Allergies Allergy/AdvReac Type Severity Reaction Status Date / Time No Known Allergies Allergy Verified 11/13/17 22:20 Exam Vital signs and Labs for Last 24 Hours: Temp Pulse Resp BP Pulse Ox 98.3 F 93 H 20 176/82 100 12/20/17 17:22 12/20/17 17:22 12/20/17 17:22 12/20/17 17:22 12/20/17 17:22 Laboratory Res
--- NOTE | 2017-12-20 19:02 | P.HP_ITS ---
*Admission Date: 12/20/17 *Chief complaint: Intractable neck pain *History of present illness: Mr. 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 He had an appointment in the office today for checkup on his INR. He noted that he had a stiff neck for a couple of days which he attributed to sleeping wrong. When he was called back from the waiting room to the exam room, he turned his neck to the left and had a sudden excruciating pain radiating from the lower left side of his neck to the base of the skull. He then could not move his neck without severe pain. Despite attempts at manual massage and ice therapy in the office, he got no relief. He was then referred to the physical therapy department at the hospital and underwent ultrasound, E-stim and deep tissue massage again with no significant relief in his pain. He also was given an injection of 30 mg of Toradol in the office. Despite these measures , he had no improvement with his pain. The decision was then made to admit him to the hospital for treatment of intractable pain. [facility] History Medical History: Reports:: Cancer (primary lung with brain mets), Deep Vein Thrombosis, Hypertension Denies:: Diabetes Mellitus Type 1, Diabetes Mellitus Type 2, MRSA Other Surgeries: Yes: Other (brain tumor, lung) Amputation: No Fractures: No - *Social History Smoking Status: Never smoker Alcohol Intake: former Alcohol Intake Frequency:: holidays/special occasions only Occupational Status: disabled Household Members: spouse - Psychiatric History Expresses thoughts of harming self/others: None Suicide Plan Description: No Plan *Family Hx:: Hypertension Review of Systems - Constitutional Reports fatigue, Reports lack of energy, Reports weakness - Eyes Denies blurry vision, Denies double vision - ENT Denies dizziness, Denies difficulty swallowing, Denies headache(s) - *Cardiovascular Denies chest pain, Denies shortness of breath - *Respiratory Denies chest congestion, Denies cough, Denies shortness of breath - *Gastrointestinal Denies abdominal pain, Denies nausea, Denies vomiting - *Genitourinary Denies difficulty urinating, Denies painful urination - *Musculoskeletal Comments: See HPI - Integumentary/Breasts Denies change in skin color, Denies itching, Denies rash - *Neurologic Denies confusion, Denies dizziness, Denies numbness Comments: no radicular symptoms - Psychiatric Reports depression, Denies anxiety, Denies thoughts of hurting/killing others - Endocrine Denies cold intolerance, Denies excessive sweating - Hematologic/Lymphatic Denies easy bleeding, Denies easy bruising - Allergic/Immunologic Denies itchy eyes, Denies hives, Denies wheezing Meds Home Medications Medication Instructions Recorded Confirmed Type Erlotinib HCl [Tarceva] 150 mg PO DAILY 11/14/17 12/20/17 History Folic Acid [Folic Acid 1mg tablet] 1 mg PO DAILY 11/14/17 12/20/17 History Magnesium Oxide [Magox 400] 400 mg PO BID 11/14/17 12/20/17 History Minocycline HCl 100 mg PO DAILY 11/14/17 12/20/17 History Ondansetron HCl [Ondansetron 8mg 8 mg PO Q8HP PRN 11/14/17 12/20/17 History Tab] Oxycodone HCl/Acetaminophen 1 tab PO Q6HP PRN 11/14/17 12/20/17 History [Percocet 5/325mg tablet] Pantoprazole Sodium [Protonix 40mg 40 mg PO DAILY 11/14/17 12/20/17 History tablet] Potassium Chlor
[2017-12-20 20:00] VITALS: O2SAT 94
[2017-12-20 20:49] LABS: Anisocytosis 1+; Hypochromasia 1+; Lymphocytes % 3 % (10-50); Monocytes % 1 % (2-9); Neutrophils % 96 % (42-76); Platelet Estimate Normal; Poikilocytosis 1+; Total Cells Counted 100
[2017-12-20 21:29] VITALS: BP 133/70; PULSE 84; RESP 15; TEMP 36.8; O2SAT 94
[2017-12-21] VITALS (7 sets, daily range): BP systolic 126–156; BP diastolic 61–73; PULSE 78–89; RESP 16–18; TEMP 36.5–37; O2SAT 91–98
--- NOTE | 2017-12-21 02:44 | PC.NURSE ---
PT HAS RESTED PERIODICALLY T/O THE NIGHT. HE HAS BEEN STANDING TO VOID AT THE BEDSIDE. URINE IS DARK YELLOW, CLEAR. DID NOT REPORT ANY FURTHER PAIN WHEN ASKED. REPORTS ADEQUATE PAIN CONTROL WITH MEDS.
[2017-12-21 06:09] LABS: INR 2.38 (0.9-1.1); Prothrombin Time 25.9 seconds (9.4-11.8)
--- NOTE | 2017-12-21 07:42 | HMH.PHAVTE ---
[facility] Pharmacy VTE Monitoring - Patient Demographics Admission date: 12/20/17 Report Date: 12/21/17 Time: 07:42 Allergies/Adverse Reactions: Patient Allergies No Known Allergies Allergy (Verified 11/13/17 22:20) Height: 1.83 m Weight: 76.657 kg Patient Problems: Current Active Problems Acute cervical myofascial strain (Acute) Intractable pain (Acute) Hx of deep venous thrombosis (Acute) - VTE Risk Labs: VTE Related Lab Results Hgb 9.6 g/dL (14.1-18.0) L 12/20/17 18:00 Hct 30.1 % (42.0-52.0) L 12/20/17 18:00 Plt Count 197 K/mm3 (142-424) 12/20/17 18:00 PT 25.9 seconds (9.4-11.8) H 12/21/17 05:40 INR 2.38 (0.9-1.1) H 12/21/17 05:40 BUN 24 mg/dL (7-18) H 12/20/17 18:00 Creatinine 1.20 mg/dL (0.70-1.30) 12/20/17 18:00 Estimated Creat Clear 76 mL/min (0-300) 12/20/17 18:00 Clinical Trial Participant: No - Prophylaxis VTE Prophylaxis Ordered?: Yes Types of VTE Prophylaxis: TEDS Knee High Location of Applied Device: Not Applicable
--- NOTE | 2017-12-21 07:42 | HMH.PHAVTE ---
[facility] Pharmacy VTE Monitoring - Patient Demographics Allergies/Adverse Reactions: Patient Allergies No Known Allergies Allergy (Verified 11/13/17 22:20) Height: 1.83 m Weight: 76.657 kg Patient Problems: Current Active Problems Acute cervical myofascial strain (Acute) Intractable pain (Acute) Hx of deep venous thrombosis (Acute) - VTE Risk Labs: VTE Related Lab Results Hgb 9.6 g/dL (14.1-18.0) L 12/20/17 18:00 Hct 30.1 % (42.0-52.0) L 12/20/17 18:00 Plt Count 197 K/mm3 (142-424) 12/20/17 18:00 PT 25.9 seconds (9.4-11.8) H 12/21/17 05:40 INR 2.38 (0.9-1.1) H 12/21/17 05:40 BUN 24 mg/dL (7-18) H 12/20/17 18:00 Creatinine 1.20 mg/dL (0.70-1.30) 12/20/17 18:00 Estimated Creat Clear 76 mL/min (0-300) 12/20/17 18:00 Clinical Trial Participant: No - Prophylaxis Types of VTE Prophylaxis: TEDS Knee High
--- NOTE | 2017-12-21 08:14 | HMH.ACPN2 ---
Internal Medicine - PN: Subj *Date: 12/21/17 *Time: 08:14 Interval history: Rested fairly well last night. Still having pain at base of skull but able to move neck some. Exam Vital signs and Labs for Last 24 Hours: Temp Pulse Resp BP Pulse Ox 98.6 F 82 17 126/61 94 L 12/21/17 04:18 12/21/17 04:18 12/21/17 04:18 12/21/17 04:18 12/21/17 04:18 Laboratory Results - last 24 hr 12/20/17 18:00: WBC 7.3, RBC 3.59 L, Hgb 9.6 L, Hct 30.1 L, MCV 84.0, MCH 26.8 L, MCHC 31.9, RDW 16.2, Plt Count 197, MPV 6.9 L, Neut % (Auto) 90.4 H, Lymph % (Auto) 4.9 L, Yancey % (Auto) 4.4, Eos % (Auto) 0.2, Baso % (Auto) 0.1, Neut # (Auto) 6.6, Lymph # (Auto) 0.4 L, Yancey # (Auto) 0.3, Eos # (Auto) 0.0, Baso # (Auto) 0.0, Total Counted 100, Neutrophils % (Manual) 96 H, Lymphocytes % (Manual) 3 L, Monocytes % (Manual) 1 L, Platelet Estimate Normal, Hypochromasia 1+, Poikilocytosis 1+, Anisocytosis 1+ 12/20/17 18:00: Sodium 135 L, Potassium 3.9, Chloride 101, Carbon Dioxide 26, Anion Gap 11.9, BUN 24 H, Creatinine 1.20, Estimated Creat Clear 76, Estimated GFR 63, Est GFR ( Amer) 76, Glucose 109 H, Calcium 8.8, Total Bilirubin 0.9, AST 22, ALT 13, Alkaline Phosphatase 171 H, Total Protein 6.7, Albumin 3.1 L, Globulin 3.6 H, Albumin/Globulin Ratio 0.9 L 12/21/17 05:40: PT 25.9 H, INR 2.38 H I & O for Last 24 hours: Intake & Output 12/18/17 12/19/17 12/20/17 12/21/17 11:59 11:59 11:59 11:59 Intake Total 489 / 489 Output Total 1130 / 1130 Balance -641 / -641 Weight 169 lb - Constitutional Comments: alert, NAD at rest - *Routine Neck Exam Comments: tenderness and spasm on left upper trapezius. Able to rotate neck to right some but limited to left. - *Routine Respiratory Exam Present: CTA bilaterally - *Routine Cardiovascular Exam Present: RRR Assessment and Plan (1) Acute cervical myofascial strain Current visit: Yes Status: Acute Category: Medical Code(s): S16.1XXA - Strain of muscle, fascia and tendon at neck level, initial encounter (2) Intractable pain Current visit: Yes Status: Acute Category: Medical Code(s): R52 - Pain, unspecified (3) Hx of deep venous thrombosis Current visit: Yes Status: Acute Category: Medical Code(s): Z86.718 - Personal history of other venous thrombosis and embolism (4) Lung cancer metastatic to brain Current visit: No Status: Acute Category: Medical Code(s): C34.90 - Malignant neoplasm of unspecified part of unspecified bronchus or lung; C79.31 - Secondary malignant neoplasm of brain - Assessment and plan all Dx Assessment and Plan for all problems:: PT eval today. Advance activity. Possibly home later today
--- NOTE | 2017-12-21 08:18 | P.PN_ITS ---
Internal Medicine - PN: Subj *Date: 12/21/17 *Time: 08:14 Interval history: Rested fairly well last night. Still having pain at base of skull but able to move neck some. Exam Vital signs and Labs for Last 24 Hours: Temp Pulse Resp BP Pulse Ox 98.6 F 82 17 126/61 94 L 12/21/17 04:18 12/21/17 04:18 12/21/17 04:18 12/21/17 04:18 12/21/17 04:18 Laboratory Results - last 24 hr 12/20/17 18:00: WBC 7.3, RBC 3.59 L, Hgb 9.6 L, Hct 30.1 L, MCV 84.0, MCH 26.8 L , MCHC 31.9, RDW 16.2, Plt Count 197, MPV 6.9 L, Neut % (Auto) 90.4 H, Lymph % ( Auto) 4.9 L, Parmer % (Auto) 4.4, Eos % (Auto) 0.2, Baso % (Auto) 0.1, Neut # ( Auto) 6.6, Lymph # (Auto) 0.4 L, Parmer # (Auto) 0.3, Eos # (Auto) 0.0, Baso # ( Auto) 0.0, Total Counted 100, Neutrophils % (Manual) 96 H, Lymphocytes % (Manual ) 3 L, Monocytes % (Manual) 1 L, Platelet Estimate Normal, Hypochromasia 1+, Poikilocytosis 1+, Anisocytosis 1+ 12/20/17 18:00: Sodium 135 L, Potassium 3.9, Chloride 101, Carbon Dioxide 26, Anion Gap 11.9, BUN 24 H, Creatinine 1.20, Estimated Creat Clear 76, Estimated GFR 63, Est GFR ( Amer) 76, Glucose 109 H, Calcium 8.8, Total Bilirubin 0.9, AST 22, ALT 13, Alkaline Phosphatase 171 H, Total Protein 6.7, Albumin 3.1 L, Globulin 3.6 H, Albumin/Globulin Ratio 0.9 L 12/21/17 05:40: PT 25.9 H, INR 2.38 H I & O for Last 24 hours: Intake & Output 12/18/17 12/19/17 12/20/17 12/21/17 11:59 11:59 11:59 11:59 Intake Total 489 / 489 Output Total 1130 / 1130 Balance -641 / -641 Weight 169 lb - Constitutional Comments: alert, NAD at rest - *Routine Neck Exam Comments: tenderness and spasm on left upper trapezius. Able to rotate neck to right some but limited to left. - *Routine Respiratory Exam Present: CTA bilaterally - *Routine Cardiovascular Exam Present: RRR Assessment and Plan (1) Acute cervical myofascial strain Current visit: Yes Status: Acute Category: Medical Code(s): S16.1XXA - Strain of muscle, fascia and tendon at neck level, initial encounter (2) Intractable pain Current visit: Yes Status: Acute Category: Medical Code(s): R52 - Pain, unspecified (3) Hx of deep venous thrombosis Current visit: Yes Status: Acute Category: Medical Code(s): Z86.718 - Personal history of other venous thrombosis and embolism (4) Lung cancer metastatic to brain Current visit: No Status: Acute Category: Medical Code(s): C34.90 - Malignant neoplasm of unspecified part of unspecified bronchus or lung; C79.31 - Secondary malignant neoplasm of brain - Assessment and plan all Dx Assessment and Plan for all problems:: PT eval today. Advance activity. Possibly home later today
--- NOTE | 2017-12-21 10:04 | HMH.PTEV ---
Physical Therapy Evaluation Rehab PT IP Evaluation Start: 12/20/17 19:21 Freq: ONCE Status: Active Protocol: Document 12/21/17 10:01 CRISTIAN (Rec: 12/21/17 10:03 CRISTIAN [id number]) Subjective/History History History This is the initial evaluation for Brady Garcia. Pt is a 52 y/o male direct admit from Dr. Stewart office for intractable neck pain Subjective Subjective Pt c/o severe pain in L suboccipital and cervical area w/ mvmnt Rehab PT IP Eval Objective Appearance Patient Behavior Appropriate Cooperative Patient Orientation Person Place Time Name Age Birthday Difficulty following instructions none Speech Pattern Clear Ambulation Patient Able to Ambulate Yes Ambulation Observation IP General Gait Pattern Observation Shuffling Step Ambulation Distance (feet) 2 Ambulation Assistive Device None Balance Ability to Arise Able, uses arms to help Sitting Balance Steady, safe Standing Balance Steady, wide stance Dynamic Sitting Balance Ability Good Dynamic Standing Balance Ability Fair Transfers Bed Transfer Ability Supervision/Stand by Chair Transfer Ability Supervision/Stand by Sit to Stand Bed Transfer Ability Supervision/Stand by Sit to Stand Chair Transfer Ability Supervision/Stand by ROM All Extremities PT ROM Status WFL MMT All Extremities PT MMT WFL Rehab PT IP prob,goals,plan Problems Date of Evaluation: 12/21/17 Rehab Potential Rehab Potential Innapropriate for Skilled Therapy Equipment Needs Assistive Devices None / NA Discharge Plan PT Discharge Plan Pt to return home G -code Required Yes Eval Complexity Eval Charge Codes 80524 - Low Complexity G Codes PT Current Status Self Care PT Current Status Modifier CI-At least 1% but less than 20% impaired, limited or restricted PT Goal Status Self Care PT Goal Status Modifer CI-At least 1% but less than 20% impaired, limited or restricted PHYSICIAN CERTIFICATION: I certify the specified therapy s
--- NOTE | 2017-12-21 15:19 | PC.NURSE ---
report called to consuelo king rn
--- NOTE | 2017-12-21 16:26 | PC.NURSE ---
late entry. md checked on patient through out shift. stated it was okay to alternate heat and cold on neck and okayed use of a k pad if wanted. encouraged patient to move neck more. still having pain and nausea at times.
--- NOTE | 2017-12-21 17:32 | PC.NURSE ---
PATIENT MOVED TODAY FROM OVERFLOW IN ICU TO SECOND FLOOR. PATIENTS SAID DOCTOR WANTED A HEATING PAD TO PATIENTS NECK. K-PAD APPLIED TO NECK. PATIENT SLEEPING, FAMILY AT BEDSIDE, NO DISTRESS NOTED, WILL CONTINUE TO MONITOR.
--- NOTE | 2017-12-21 19:02 | PC.NURSE ---
REPORT GIVEN TO JORDANA ELIZABETH
--- NOTE | 2017-12-21 22:13 | PC.NURSE ---
pt is wearing his own compression stockings
--- NOTE | 2017-12-22 03:15 | PC.NURSE ---
pt has rested periods throughout the shift, pt c/o pain to the left side of the neck, pt states the pain is better if no attempt to move the neck is made, heat and ice has been rotated with rest periods between to help alleviate the pain, PRN pain medications given once this shift per DEC, pt sates this is helping the pain become tolerable, breath sounds are clear to auscultation, bowel sounds are active, vss, no acute distress noted at this time, call light in reach, family at bedside, will continue to monitor.
[2017-12-22 03:54] VITALS: BP 154/74; PULSE 89; RESP 20; TEMP 37.6; O2SAT 95
[2017-12-22 04:15] VITALS: RESP 16
[2017-12-22 04:49] VITALS: RESP 14
[2017-12-22 06:57] LABS: INR 2.81 (0.9-1.1); Prothrombin Time 30.7 seconds (9.4-11.8)
--- NOTE | 2017-12-22 07:11 | PC.NURSE ---
Report given to Manuela Raphael RN
[2017-12-22 07:28] VITALS: BP 142/70; PULSE 95; RESP 18; TEMP 37; O2SAT 94
--- NOTE | 2017-12-22 08:21 | HMH.ACPN2 ---
<Анна Flores - Last Filed: 12/22/17 08:21> Internal Medicine - PN: Subj *Date: 12/22/17 *Time: 08:21 Interval history: Patient is feeling slightly better today. He is still having left-sided neck pain and has difficulty moving his head. He was able to sleep last night with medication. Has eaten this morning. Exam Vital signs and Labs for Last 24 Hours: Temp Pulse Resp BP Pulse Ox 98.6 F 95 H 18 142/70 94 L 12/22/17 07:28 12/22/17 07:28 12/22/17 07:28 12/22/17 07:28 12/22/17 07:28 Laboratory Results - last 24 hr 12/22/17 06:20: PT 30.7 H, INR 2.81 H I & O for Last 24 hours: Intake & Output 12/19/17 12/20/17 12/21/17 12/22/17 11:59 11:59 11:59 11:59 Intake Total 489 / 489 1175 / 1175 Output Total 1130 / 1130 150 / 150 Balance -641 / -641 1025 / 1025 Weight 169 lb - Constitutional no acute distress - *Routine Neck Exam Comments: decreased ROM of the neck, ttp along the trapezius attachment site to the skull - *Routine Respiratory Exam Present: CTA bilaterally - *Routine Cardiovascular Exam Present: RRR - *Routine Abdominal Exam Present: soft, normoactive bowel sounds. Absent: tenderness - *Routine Extremities Exam Absent: edema Assessment and Plan (1) Acute cervical myofascial strain Current visit: Yes Status: Acute Category: Medical Code(s): S16.1XXA - Strain of muscle, fascia and tendon at neck level, initial encounter (2) Intractable pain Current visit: Yes Status: Acute Category: Medical Code(s): R52 - Pain, unspecified (3) Hx of deep venous thrombosis Current visit: Yes Status: Acute Category: Medical Code(s): Z86.718 - Personal history of other venous thrombosis and embolism (4) Lung cancer metastatic to brain Current visit: No Status: Acute Category: Medical Code(s): C34.90 - Malignant neoplasm of unspecified part of unspecified bronchus or lung; C79.31 - Secondary malignant neoplasm of brain - Assessment and plan all Dx Assessment and Plan for all problems:: Patient stable to be discharged home today. He has Percocet at home and will be discharged on Zanaflex. Will start physical therapy on an outpatient basis. <Kirill Stewart - Last Filed: 12/22/17 09:15> Internal Medicine - PN: Subj *Date: 12/22/17 *Time: 09:13 Exam Vital signs and Labs for Last 24 Hours: Temp Pulse Resp BP Pulse Ox 98.6 F 95 H 18 142/70 94 L 12/22/17 07:28 12/22/17 07:28 12/22/17 07:28 12/22/17 07:28 12/22/17 07:28 Laboratory Results - last 24 hr 12/22/17 06:20: PT 30.7 H, INR 2.81 H I & O for Last 24 hours: Intake & Output 12/19/17 12/20/17 12/21/17 12/22/17 11:59 11:59 11:59 11:59 Intake Total 489 / 489 1175 / 1175 Output Total 1130 / 1130 150 / 150 Balance -641 / -641 1025 / 1025 Weight 169 lb Assessment and Plan (1) Acute cervical myofascial strain Current visit: Yes Status: Acute Category: Medical Code(s): S16.1XXA - Strain of muscle, fascia and tendon at neck level, initial encounter (2) Intractable pain Current visit: Yes Status: Acute Category: Medical Code(s): R52 - Pain, unspecified (3) Hx of deep venous thrombosis Current visit: Yes Status: Acute Category: Medical Code(s): Z86.718 - Personal history of other venous thrombosis and embolism (4) Lung cancer metastatic to brain Current visit: No Status: Acute Category: Medical Code(s): C34.90 - Malignant neoplasm of unspecified part of unspecified bronchus or lung; C79.31 - Secondary malignant neoplasm of brain - Assessment and plan all Dx Assessment and Plan for all problems:: Patient seen and examined. He is moving his head somewhat better but still limited to left side. I discussed his Coumadin dosing and he will f/u in office in 2 days to recheck INR
--- NOTE | 2017-12-22 08:37 | HMH.DCSUM ---
General - General Admission date: 12/20/17 <Kirill Stewart - 12/22/17 08:45> Discharge date: 12/22/17 <Анна Flores - 12/25/17 17:44> HPI HPI: Mr. 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 He had an appointment in the office today for checkup on his INR. He noted that he had a stiff neck for a couple of days which he attributed to sleeping wrong. When he was called back from the waiting room to the exam room, he turned his neck to the left and had a sudden excruciating pain radiating from the lower left side of his neck to the base of the skull. He then could not move his neck without severe pain. Despite attempts at manual massage and ice therapy in the office, he got no relief. He was then referred to the physical therapy department at the hospital and underwent ultrasound, E-stim and deep tissue massage again with no significant relief in his pain. He also was given an injection of 30 mg of Toradol in the office. Despite these measures, he had no improvement with his pain. The decision was then made to admit him to the hospital for treatment of intractable pain. <Kirill Stewart - 12/22/17 08:45> Hospital Course Hospital Course: He was started on IV fluids, IV steroids, IV Stadol, and IV Valium. Physical therapy was consulted. His Coumadin was held due to a supratherapeutic INR of 4.0. The patient's pain improved slightly. Therapy did try some muscle stimulation with little success. They also tried massage. He was stable to be discharged home on zanaflex. He already has percocet at home. He will start physical therapy on an outpatient basis. <нАна Flores - 12/25/17 17:44> Objective Vital signs: Temp Pulse Resp BP Pulse Ox 98.6 F 95 H 18 142/70 94 L 12/22/17 07:28 12/22/17 07:28 12/22/17 07:28 12/22/17 07:28 12/22/17 07:28 <Анна Flores - 12/25/17 17:44> Temp Pulse Resp BP Pulse Ox 98.6 F 95 H 18 142/70 94 L 12/22/17 07:28 12/22/17 07:28 12/22/17 07:28 12/22/17 07:28 12/22/17 07:28 <Kirill Stewart - 12/22/17 08:45> Narrative: - Constitutional Comments: severe distress with neck pain - *Routine HEENT Exam Head: Present: normocephalic, atraumatic Eye: Present: EOMI, PERRL, conjunctival icterus ENT: Present: mucous membranes moist, oropharynx clear - *Routine Neck Exam Comments: well healed ML incision over c-spine. Marked spasm and tenderness in left upper trapezius. Tender at base of left skull. No adenopathy. Unable to move neck at all w/o severe pain - *Routine Respiratory Exam Present: CTA bilaterally. Absent: respiratory distress, wheezes - *Routine Cardiovascular Exam Present: RRR. Absent: murmur - *Routine Abdominal Exam Present: soft. Absent: tenderness, distended - *Routine Extremities Exam Absent: edema, Jude's sign - *Routine Neurological Exam normal strength and sensation in BUE <Анна Flores - 12/25/17 17:44> Results Labs on day of discharge: Labs from last 24 hours 12/22/17 06:20 PT 30.7 H INR 2.81 H <Kirill Stewart - 12/22/17 08:45> DS: Diagnosis - Discharge Diagnosis (1) Acute cervical myofascial strain Status: Acute (2) Intractable pain Status: Acute (3) Hx of deep venous thrombosis Status: Acute (4) Lung cancer metastatic to brain Status: Acute <Анна Flores - 12/25/17 17:44> (1) Acute cervical myofascial strain Status: Acute (2) Intractable pain Status: Acute (3) Hx of deep venous thrombosis Status: Acute (4) Lung cancer metastatic to brain Status: Acute <Kirill Stewart - 12/22/17 09:10> Discharge Plan - Patient Discharge Instructions ACTIVITY: Continue current activity <Kirill Stewart - 12/22/17 08:45> DIET: continue same diet <Kirill Stewart -
--- NOTE | 2017-12-22 08:45 | P.DS_ITS ---
General - General Admission date: 12/20/17 <Kirill Stewart - 12/22/17 08:45> Discharge date: 12/22/17 <Анна Flores - 12/25/17 17:44> HPI HPI: Mr. 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 He had an appointment in the office today for checkup on his INR. He noted that he had a stiff neck for a couple of days which he attributed to sleeping wrong. When he was called back from the waiting room to the exam room, he turned his neck to the left and had a sudden excruciating pain radiating from the lower left side of his neck to the base of the skull. He then could not move his neck without severe pain. Despite attempts at manual massage and ice therapy in the office, he got no relief. He was then referred to the physical therapy department at the hospital and underwent ultrasound, E-stim and deep tissue massage again with no significant relief in his pain. He also was given an injection of 30 mg of Toradol in the office. Despite these measures , he had no improvement with his pain. The decision was then made to admit him to the hospital for treatment of intractable pain. <Kirill Stewart - 12/22/17 08:45> Hospital Course Hospital Course: He was started on IV fluids, IV steroids, IV Stadol, and IV Valium. Physical therapy was consulted. His Coumadin was held due to a supratherapeutic INR of 4.0. The patient's pain improved slightly. Therapy did try some muscle stimulation with little success. They also tried massage. He was stable to be discharged home on zanaflex. He already has percocet at home. He will start physical therapy on an outpatient basis. <Анна Flores - 12/25/17 17:44> Objective Vital signs: Temp Pulse Resp BP Pulse Ox 98.6 F 95 H 18 142/70 94 L 12/22/17 07:28 12/22/17 07:28 12/22/17 07:28 12/22/17 07:28 12/22/17 07:28 <Анна Flores - 12/25/17 17:44> Temp Pulse Resp BP Pulse Ox 98.6 F 95 H 18 142/70 94 L 12/22/17 07:28 12/22/17 07:28 12/22/17 07:28 12/22/17 07:28 12/22/17 07:28 <Kirill Stewart - 12/22/17 08:45> Narrative: - Constitutional Comments: severe distress with neck pain - *Routine HEENT Exam Head: Present: normocephalic, atraumatic Eye: Present: EOMI, PERRL, conjunctival icterus ENT: Present: mucous membranes moist, oropharynx clear - *Routine Neck Exam Comments: well healed ML incision over c-spine. Marked spasm and tenderness in left upper trapezius. Tender at base of left skull. No adenopathy. Unable to move neck at all w/o severe pain - *Routine Respiratory Exam Present: CTA bilaterally. Absent: respiratory distress, wheezes - *Routine Cardiovascular Exam Present: RRR. Absent: murmur - *Routine Abdominal Exam Present: soft. Absent: tenderness, distended - *Routine Extremities Exam Absent: edema, Jude's sign - *Routine Neurological Exam normal strength and sensation in BUE <Анна Flores - 12/25/17 17:44> Results Labs on day of discharge: Labs from last 24 hours 12/22/17 06:20 PT 30.7 H INR 2.81 H <Kirill Stewart - 12/22/17 08:45> DS: Diagnosis - Discharge Diagnosis (1) Acute cervical myofascial strain Status: Acute (2) Intractable pain Status: Acute (3) Hx of deep venous thrombosis Status: Ac
== END 2017-12-22 10:50 | disposition home or self-care (01) ==
LOC: 2ND 16:55 → ICU 16:58 → 2ND 12-21 15:14
PROVIDERS: Admitting Provider Family Medicine; PCP Family Medicine; Visit Provider Family Medicine
DX: S16.1XXA Strain of muscle, fascia and tendon at neck level, initial encounter (principal); C34.11 Malignant neoplasm of upper lobe, right bronchus or lung; C79.31 Secondary malignant neoplasm of brain; Z86.718 Personal history of other venous thrombosis and embolism; Z79.01 Long term (current) use of anticoagulants
CPT/HCPCS: 36415; 80053; 85007; 85025; 85610; 97161; G0378

== ENCOUNTER → 2017-12-24 09:34 | Outpatient (CLI) | payer MEDICARE, SELFPAY ==
--- NOTE | 2017-12-24 10:50 | MR_ITS ---
MR cervical spine wo/w con COMPARISON: None HISTORY: Known lung cancer complaining neck pain TECHNIQUE: Standard sagittal and axial sequences were performed along with post gadolinium T1 sagittal T1 axial images FINDINGS: There is normal curvature and alignment. There are areas of decreased T1 signal in the C2, C3 and C4 vertebral bodies posteriorly deftly worrisome for metastatic disease. There is no collapse of these vertebral bodies. There is a broad-based right paracentral disc protrusion C5-6 which abuts but does not contour the cervical cord. There is a somewhat more prominent right paracentral disc protrusion C6-7 which contours the cervical cord on the right side. The myelogram sequence demonstrates decreased signal of the CSF at the C5-6 and C6-7 levels. Consistent with the findings described above. The remaining cervical vertebrae appear intact. The cervical cord otherwise appears normal. IMPRESSION: 1. Apparent metastatic involvement of C2, C3 3 and C4. 2. Broad-based right paracentral disc protrusion C5-6 and C6-7 with moderate contouring of the cervical cord right side at the C6-7 level.
== END ==
PROVIDERS: PCP Family Medicine; Visit Provider Internal Medicine Hematology & Oncology
DX: C34.82 Malignant neoplasm of overlapping sites of left bronchus and lung (principal); G89.3 Neoplasm related pain (acute) (chronic)
CPT/HCPCS: 71260; 72156; 74177; 76376; 80053; 85025; 85610; A9576; J1642; Q9967

== ENCOUNTER 2018-01-04 09:13 | Outpatient (CLI) | payer MEDICARE, SELFPAY ==
[2018-01-04 09:11] VITALS: BMI 22.6
[2018-01-04 09:35] VITALS: BP 122/70; PULSE 66; RESP 20; TEMP 36.9; O2SAT 96
[2018-01-04 10:01] LABS: Basophils % 0.4 % (0.1-2.0); Eosinophils # 0.1 K/mm3 (0.0-0.4); Eosinophils % 1.3 % (0.1-12.0); Hematocrit 29.1 % (42.0-52.0); Hemoglobin 9.2 g/dL (14.1-18.0); Lymphocytes # 0.7 K/mm3 (0.7-4.5); Lymphocytes % 11.7 K/mm3 (10-50); Mean Corpuscular HGB Conc 31.7 g/dL (31.8-35.4); Mean Corpuscular Hemoglobin 26.2 pg (27.0-31.2); Mean Corpuscular Volume 82.6 fl (80-94); Mean Platelet Volume 6.9 fl (7.4-10.4); Monocytes # 0.4 K/mm3 (0.1-1.0); Monocytes % 6.2 % (1.7-9.3); Neutrophils # 4.8 K/mm3 (1.8-7.8); Neutrophils % 80.4 % (37.0-80.0); Platelet Count 361 K/mm3 (142-424); Red Blood Count 3.52 M/mm3 (4.60-6.20); Red Cell Distribution Width 16.1 % (11.5-17.5)
[2018-01-04 10:06] LABS: INR 1.32 (0.9-1.1); Prothrombin Time 14.3 seconds (9.4-11.8)
[2018-01-04 10:12] LABS: Alanine Aminotransferase 13 U/L (12-78); Albumin Level 2.8 gm/dL (3.4-5.0); Albumin/Globulin Ratio 0.7 (1.1-1.8); Alkaline Phosphatase 185 U/L (46-116); Anion Gap 11.6 mEq/L (5-15); Aspartate Amino Transferase 27 U/L (15-37); Bilirubin,Total 0.6 mg/dL (0.2-1.0); Blood Urea Nitrogen 20 mg/dL (7-18); Calcium 8.9 mg/dL (8.5-10.1); Carbon Dioxide 29 mmol/L (21.0-32.0); Chloride 103 mmol/L (98-107); Creatinine Clearance Estimated 75 mL/min (0-300); Estimated Glomerular Filt Rate 63 ml/min (>60); GFR (African American) 76 ML/MIN (>60); Globulin 3.9 gm/dl (1.3-3.2); Glucose 98 mg/dL (74-106); Potassium 3.6 mmoL/L (3.5-5.1); Sodium 140 mmol/L (136-145); Total Protein,Serum 6.7 gm/dL (6.4-8.2)
[2018-01-04 10:45] VITALS: BP 122/74; PULSE 68; RESP 20; TEMP 36.6; O2SAT 96
== END 2018-01-04 11:00 | disposition home or self-care (01) ==
LOC: INF 09:13
PROVIDERS: PCP Family Medicine; Visit Provider Internal Medicine Hematology & Oncology
DX: C34.82 Malignant neoplasm of overlapping sites of left bronchus and lung (principal); Z79.01 Long term (current) use of anticoagulants
CPT/HCPCS: 80053; 85025; 85610; J1642

== ENCOUNTER → 2018-01-04 09:37 | Outpatient (CLI) | payer MEDICARE, SELFPAY ==
--- NOTE | 2018-01-04 09:44 | MR_ITS ---
MR head/brain wo/w con HISTORY: History of malignant neoplasm of the brain, metastatic disease, ITS.REASON: MALIGNANT NEOPLASM OF BRAIN ORDERING PHYSICIAN: Bobby Duncan PATIENT AGE: 52 years COMPARISON: 11/02/2014 TECHNIQUE: Standard multiplanar multiecho sequences are performed without and with gadolinium enhancement. FINDINGS: Artifact is present along the patient's and frontal area from a mask. There are multiple enhancing foci in both the cerebrum and cerebellum. There is only minimal amount of edema around these lesions The largest lesion is in the right cerebellar hemisphere posteriorly. This lesion measures 2.7 cm transverse and 2 cm AP with T1 isointensity centrally and hyperintensity peripherally showing slight increased T2 signal centrally and increased T2 signal peripherally. No significant edema. The peripheral increased T1 and T2 signal with suggest a hemorrhagic peripheral component of the lesion. Multiple other cerebellar lesions are present involving both right and left cerebellar hemisphere with peripheral enhancement. The previously described 5 cm lesion in the right frontal area has been resected. Encephalomalacia changes are present in this area with no obvious evidence of recurrence. There are however multiple small peripheral enhancing lesions in both parietal lobes, left frontal lobe, and both temporal lobes. A small enhancing lesion involves the medial wall of the body of the left lateral ventricle. The previously noted central lesion of the cerebellum posterior to the fourth ventricle is no longer apparent. Enhancing lesions are also present within the basal ganglia 2 within the left thalamus and one in near the head of the caudate nucleus on the left. These lesions do show increased signal on the diffusion weighted images however they also show increased signal on the ADC images consistent with T2 shine through. Moderate periventricular ischemic gliotic changes are present as well. Small extra-axial fluid collection noted in the right frontal area probably postsurgical. No mass effect. Mild thickening of the dura and minimal dural enhancement at this region likely postsurgical as well. There are bilateral mastoid effusions. IMPRESSION: Numerous enhancing lesions of the cerebrum and cerebellum consistent with metastatic disease as described above the largest in the right cerebellar hemisphere with suspected peripheral hemorrhagic component. Differential diagnosis would include multiple abscesses
== END ==
PROVIDERS: PCP Family Medicine; Visit Provider Neurological Surgery
DX: C79.31 Secondary malignant neoplasm of brain (principal); C34.82 Malignant neoplasm of overlapping sites of left bronchus and lung; Z79.01 Long term (current) use of anticoagulants
CPT/HCPCS: 70553; 80053; 85025; 85610; A9576; J1642

== ENCOUNTER 2018-02-03 12:17 | Inpatient (IN) ==
--- NOTE | 2018-02-03 13:43 | History & Physical Report ---
*Admission Date: 02/03/18 <Анна Flores 02/03/18 13:43> *Chief complaint: SOA, cough, weakness <Анна Flores 02/03/18 13:43> *History of present illness: Mr. Garcia is a 51-year-old white male with a history of lung cancer with metastases to the brain that just finished a repeat course of 10 radiation treatments last week. His states he has been feeling poorly all week and went to the ER on Wednesday. He was felt to be dehydrated and was given IVF's. He did not want to be admitted at that time and was sent home. Of note, the CXR from the ER was read as a LLL pneumonia. He presented to the office of [facility] today and has continued to feel poorly. He has had a nonproductive cough and some SOA. He is extremely weak. He has had a scratchy throat and some nasal congestion. He denies any vomiting or diarrhea. His family states he has been slighly confused. 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), Deep Vein Thrombosis, Hypertension, Kidney Stones Denies:: Diabetes Mellitus Type 1, Diabetes Mellitus Type 2, MRSA <Анна Flores 02/03/18 15:25> Other Surgeries: Yes: Appendectomy, Hernia Repair, Other (brain tumor, lung, right knee) <Анна Flores 02/03/18 15:25> Amputation: No <Анна Flores 02/03/18 13:43> Fractures: No <Анна Flores 02/03/18 13:43> - *Social History Smoking Status: Never smoker <Анна Flores 02/03/18 13:43> Alcohol Intake: never <Анна Flores 02/03/18 13:43> Alcohol Intake Frequency:: holidays/special occasions only <Анна Flores 13:43> Occupational Status: disabled <Анна Florse 02/03/18 13:43> Household Members: spouse <Анна Flores 02/03/18 13:43> *Family Hx:: Hypertension <Анна Flores 02/03/18 13:43> Review of Systems - Constitutional Reports fatigue, Reports weakness, Denies fever(s), Denies headache(s) <Анна Flores 02/03/18 15:25> - Eyes Denies blurry vision, Denies double vision <Анна Flores 02/03/18 15:25> - ENT Reports nasal congestion, Reports sore throat <Анна Flores 02/03/18 15:25> - *Cardiovascular Denies chest pain <Анна Flores 02/03/18 15:25> - *Respiratory Reports cough, Reports shortness of breath <Анна Flores 02/03/18 15:25> - *Gastrointestinal Denies abdominal pain, Denies loose stools, Denies vomiting <Анна Flores 02/03/18 15:25> - *Genitourinary Denies difficulty urinating, Denies painful urination <Анна Flores 15:25> - *Musculoskeletal Reports joint pain (back) <Анна Flores 02/03/18 15:25> - *Neurologic Reports confusion, Reports weakness, Denies seizure-like activity <Анна Flores 02/03/18 15:25> Meds Home Medications Medication Instructions Recorded Confirmed Type Folic Acid [Folic Acid 1mg tablet] 1 mg PO DAILY 11/14/17 02/03/18 History Magnesium Oxide [Magox 400] 400 mg PO BID 11/14/17 02/03/18 History Ondansetron HCl [Ondansetron 8mg 8 mg PO Q8HP PRN 11/14/17 02/03/18 History Tab] Pantoprazole Sodium [Protonix 40mg 40 mg PO DAILY 11/14/17 02/03/18 History tablet] Potassium Chloride [Klor-con 20 20 meq PO DAILY 11/14/17 02/03/18 History mEq tablet] Baclofen [Lioresal 10mg tablet] 10 mg PO HS 02/01/18 02/03/18 History Dexamethasone [Dexamethasone] 10 mg PO TID 02/01/18 02/03/18 History Temazepam [Restoril 15mg capsule] 15 mg PO HS 02/01/18 02/03/18 History Warfarin Sodium 5 mg PO HS 02/03/18 02/03/18 History <Kirill Stewart - 02/03/18 18:18> Allergies Allergy/AdvReac Type Severity Reaction Status Date / Time No Known Allergies Allergy Verified 11/13/17 22:20 <Kirill Stewart - 02/03/18 18:18> Exam Vital signs and Labs for Last 24 Hours: Temp Pulse Resp BP Pulse Ox 98.8 F 89 18 111/47 96 02/03/18 16:00 02/03/18 16:00 02/03/18 16:00 02/03/18 16:00 02/03/18 16:00 Laboratory Results - last 24 hr 02/03/18 14:15: WBC 6.3 D, RBC 3.27 L, Hgb 8.8 L, Hct 27.5 L, MCV 84.1, MCH 26.9 L, MCHC 32.0, RDW 18.0 H, Plt Count 169, MPV 7.1 L, Neut % (Auto) 90.1 H, Lymph % (Auto) 6.6 L, [place] % (Auto) 2.9, Eos % (Auto) 0.2, Baso % (Auto) 0.1, Neut # (Auto) 5.7, Lymph # (Auto) 0.4 L, [place] # (Auto) 0.2, Eos # (Auto) 0.0, Baso # (Auto) 0.0, Total Counted 100, Neutrophils % (Manual) 93 H, Lymphocytes % (Manual) 5 L, Monocytes % (Manual) 2, Platelet Estimate Normal 02/03/18 14:15: Sodium 137, Potassium 3.6, Chloride 99, Carbon Dioxide 31, Anion Gap 10.6, BUN 23 H D, Creatinine 0.94, Estimated Creat Clear 87, Estimated GFR 84, Est GFR ( Amer) 101, Glucose 94, Calcium 8.6, Magnesium 1.3 L, Total Bilirubin 0.8, AST 53 H, ALT 13, Alkaline Phosphatase 224 H, Total Protein 5.8 L, Albumin 2.5 L, Globulin 3.3 H, Albumin/Globulin Ratio 0.8 L 02/03/18 14:15: PT 17.8 H, INR 1.64 H 02/03/18 14:15: Influenza Type A Ag Negative, Influenza Type B Ag Negative, Mycoplasma pneumon IgM Non-reactive <Kirill Stewart - 02/03/18 18:18> Temp Pulse Resp BP Pulse Ox 99.8 F H 94 H 20 109/60 97 02/03/18 13:26 02/03/18 13:26 02/03/18 13:26 02/03/18 13:26 02/03/18 13:26 Lab Results 02/03/18 14:15: WBC 6.3 D, RBC 3.27 L, Hgb 8.8 L, Hct 27.5 L, MCV 84.1, MCH 26.9 L, MCHC 32.0, RDW 18.0 H, Plt Count 169, MPV 7.1 L, Neut % (Auto) 90.1 H, Lymph % (Auto) 6.6 L, [place] % (Auto) 2.9, Eos % (Auto) 0.2, Baso % (Auto) 0.1, Neut # (Auto) 5.7, Lymph # (Auto) 0.4 L, [place] # (Auto) 0.2, Eos # (Auto) 0.0, Baso # (Auto) 0.0 02/03/18 14:15: Sodium 137, Potassium 3.6, Chloride 99, Carbon Dioxide 31, Anion Gap 10.6, BUN 23 H D, Creatinine 0.94, Estimated Creat Clear 87, Estimated GFR 84, Est GFR ( Amer) 101, Glucose 94, Calcium 8.6, Magnesium 1.3 L, Total Bilirubin 0.8, AST 53 H, ALT 13, Alkaline Phosphatase 224 H, Total Protein 5.8 L, Albumin 2.5 L, Globulin 3.3 H, Albumin/Globulin Ratio 0.8 L 02/03/18 14:15: PT 17.8 H, INR 1.64 H 02/03/18 14:15: Influenza Type A Ag Negative, Influenza Type B Ag Negative Microbiology Results 02/03/18 14:15 Blood Blood Culture - Pending <Анна Flores - 02/03/18 15:25> I & O for Last 24 hours: Intake & Output 02/01/18 02/02/18 02/03/18 02/04/18 11:59 11:59 11:59 11:59 Intake Total 120 / 120 Balance 120 / 120 Weight 150 lb 5 oz <Kirill Stewart - 02/03/18 18:18> Intake & Output 02/01/18 02/02/18 02/03/18 02/04/18 11:59 11:59 11:59 11:59 Weight 150 lb 5 oz <Анна Flores 02/03/18 13:43> - Constitutional Comments: Does not appear to feel well <Анна Flores 02/03/18 15:25> - *Routine HEENT Exam Eye: Present: EOMI, PERRL <Анна Flores 02/03/18 15:25> ENT: Present: mucous membranes moist <Анна Flores 02/03/18 15:25> - *Routine Neck Exam Present: supple, full ROM <[facility] 02/03/18 15:25> - *Routine Respiratory Exam Present: decreased breath sounds <[facility] 02/03/18 15:25> - *Routine Cardiovascular Exam Present: RRR, tachycardia <[facility] 02/03/18 15:25> - *Routine Abdominal Exam Present: soft, normoactive bowel sounds. Absent: tenderness <[facility] 02/03/18 15:25> - *Routine Extremities Exam Absent: edema <[facility] 02/03/18 15:25> - *Routine Skin Exam Present: pallor <[facility] 02/03/18 15:25> - *Routine Neurological Exam Present: alert, oriented X3 (confused at times ) <Анна Flores 02/03/18 15: 25> H&P: Result - Labs Labs: Short CBC 02/03/18 Range/Units 14:15 WBC 6.3 D (4.8-10.8) K/mm3 Hgb 8.8 L (14.1-18.0) g/dL Hct 27.5 L (42.0-52.0) % Plt Count 169 (142-424) K/mm3 BMP 02/03/18 14:15 Sodium 137 Potassium 3.6 Chloride 99 Carbon Dioxide 31 BUN 23 H D Creatinine 0.94 Glucose 94 Calcium 8.6 Liver Function 02/03/18 Range/Units 14:15 Total Bilirubin 0.8 (0.2-1.0) mg/dL AST 53 H (15-37) U/L ALT 13 (12-78) U/L Alkaline Phosphatase 224 H (46-116) U/L Albumin 2.5 L (3.4-5.0) gm/dL <Kirill Stewart - 02/03/18 18:18> - Impressions CXR - No change left lower lobe pneumonia <Анна Flores - 02/03/18 15:25> Assessment and Plan (1) Pneumonia Current visit: No Status: Acute Category: Medical Code(s): J18.9 - Pneumonia, unspecified organism (2) Anemia Current visit: Yes Status: Acute Category: Medical Code(s): D64.9 - Anemia, unspecified (3) Hypomagnesemia Current visit: Yes Status: Acute Category: Medical Code(s): E83.42 - Hypomagnesemia (4) Subtherapeutic international normalized ratio (INR) Current visit: Yes Status: Acute Category: Medical Code(s): R79.1 - Abnormal coagulation profile (5) Dehydration Current visit: No Status: Acute Category: Medical Code(s): E86.0 - Dehydration (6) Hx of deep venous thrombosis Current visit: No Status: Chronic Category: Medical Code(s): Z86.718 - Personal history of other venous thrombosis and embolism (7) Lung cancer metastatic to brain Current visit: No Status: Chronic Category: Medical Code(s): C34.90 - Malignant neoplasm of unspecified part of unspecified bronchus or lung; C79.31 - Secondary malignant neoplasm of brain <Анна Flores - 02/03/18 16:12> (1) Pneumonia Current visit: No Status: Acute Category: Medical Code(s): J18.9 - Pneumonia, unspecified organism (2) Dehydration Current visit: No Status: Acute Category: Medical Code(s): E86.0 - Dehydration (3) Anemia Current visit: Yes Status: Acute Category: Medical Code(s): D64.9 - Anemia, unspecified (4) Hypomagnesemia Current visit: Yes Status: Acute Category: Medical Code(s): E83.42 - Hypomagnesemia (5) Subtherapeutic international normalized ratio (INR) Current visit: Yes Status: Acute Category: Medical Code(s): R79.1 - Abnormal coagulation profile (6) Hx of deep venous thrombosis Current visit: No Status: Chronic Category: Medical Code(s): Z86.718 - Personal history of other venous thrombosis and embolism (7) Lung cancer metastatic to brain Current visit: No Status: Chronic Category: Medical Code(s): C34.90 - Malignant neoplasm of unspecified part of unspecified bronchus or lung; C79.31 - Secondary malignant neoplasm of brain <Kirill Stewart - 02/03/18 18:18> - Assessment and plan all Dx Assessment and Plan for all problems:: Patient seen and examined. Concur with above assessment. Appears NAD. Mentation seems slower than normal, questionably related to brain mets, recent radiation to brain vs acute illness. He is anemic and anticipate H&H will drop with hydration. He is hemodynamically stable but may need transfusion in time. Will repeat labs in AM. Increase his Mg++ supplementation. Add Lovenox until INR is therapeutic. <Kirill Stewart - 02/03/18 18:18> Pt has been started on duonebs, abx, and IVF's. Will discuss anemia with Dr. Stewart. <Анна Flores - 02/03/18 16:13>
[2018-02-03 14:45] LABS: Albumin Level 2.5 gm/dL (3.4-5.0); Albumin/Globulin Ratio 0.8 (1.1-1.8); Anion Gap 10.6 mEq/L (5-15); Basophils % 0.1 % (0.1-2.0); Bilirubin,Total 0.8 mg/dL (0.2-1.0); Calcium 8.6 mg/dL (8.5-10.1); Eosinophils % 0.2 % (0.1-12.0); Globulin 3.3 gm/dl (1.3-3.2); Hematocrit 27.5 % (42.0-52.0); Hemoglobin 8.8 g/dL (14.1-18.0); Lymphocytes # 0.4 K/mm3 (0.7-4.5); Lymphocytes % 6.6 K/mm3 (10-50); Mean Corpuscular Hemoglobin 26.9 pg (27.0-31.2); Mean Corpuscular Volume 84.1 fl (80-94); Mean Platelet Volume 7.1 fl (7.4-10.4); Monocytes # 0.2 K/mm3 (0.1-1.0); Monocytes % 2.9 % (1.7-9.3); Neutrophils # 5.7 K/mm3 (1.8-7.8); Neutrophils % 90.1 % (37.0-80.0); Platelet Count 169 K/mm3 (142-424); Potassium 3.6 mmoL/L (3.5-5.1); Red Blood Count 3.27 M/mm3 (4.60-6.20); Total Protein,Serum 5.8 gm/dL (6.4-8.2); White Blood Count 6.3 K/mm3 (4.8-10.8)
[2018-02-03 14:59] LABS: INR 1.64 (0.9-1.1); Prothrombin Time 17.8 seconds (9.4-11.8)
[2018-02-03 15:35] LABS: Lymphocytes % 5 % (10-50); Monocytes % 2 % (2-9); Neutrophils % 93 % (42-76); Total Cells Counted 100
[2018-02-04 06:40] LABS: Basophils % 0.1 % (0.1-2.0); Eosinophils % 0.3 % (0.1-12.0); Hematocrit 25.8 % (42.0-52.0); Hemoglobin 8.2 g/dL (14.1-18.0); Lymphocytes # 0.2 K/mm3 (0.7-4.5); Lymphocytes % 4.9 K/mm3 (10-50); Mean Corpuscular HGB Conc 31.9 g/dL (31.8-35.4); Mean Corpuscular Hemoglobin 27.1 pg (27.0-31.2); Mean Corpuscular Volume 85.1 fl (80-94); Mean Platelet Volume 6.9 fl (7.4-10.4); Monocytes # 0.1 K/mm3 (0.1-1.0); Monocytes % 2.3 % (1.7-9.3); Neutrophils # 3.9 K/mm3 (1.8-7.8); Neutrophils % 92.5 % (37.0-80.0); Platelet Count 147 K/mm3 (142-424); Red Blood Count 3.03 M/mm3 (4.60-6.20); Red Cell Distribution Width 17.9 % (11.5-17.5); White Blood Count 4.2 K/mm3 (4.8-10.8)
[2018-02-04 06:52] LABS: Anion Gap 12.3 mEq/L (5-15); Potassium 4.3 mmoL/L (3.5-5.1)
[2018-02-04 06:53] LABS: INR 1.42 (0.9-1.1); Prothrombin Time 15.4 seconds (9.4-11.8)
--- NOTE | 2018-02-04 07:25 | Pharmacy Consult Notes ---
[facility] Pharmacy VTE Monitoring - Patient Demographics Admission date: 02/03/18 Report Date: 02/04/18 Time: 07:24 Allergies/Adverse Reactions: Patient Allergies No Known Allergies Allergy (Verified 11/13/17 22:20) Height: 1.83 m Weight: 67.812 kg Patient Problems: Current Active Problems Anemia (Acute) Hypomagnesemia (Acute) Subtherapeutic international normalized ratio (INR) (Acute) - VTE Risk Labs: VTE Related Lab Results Hgb 8.2 g/dL (14.1-18.0) L 02/04/18 06:19 Hct 25.8 % (42.0-52.0) L 02/04/18 06:19 Plt Count 147 K/mm3 (142-424) 02/04/18 06:19 PT 15.4 seconds (9.4-11.8) H 02/04/18 06:19 INR 1.42 (0.9-1.1) H 02/04/18 06:19 BUN 19 mg/dL (7-18) H 02/04/18 06:19 Creatinine 0.92 mg/dL (0.70-1.30) 02/04/18 06:19 Estimated Creat Clear 88 mL/min (0-300) 02/04/18 06:19 Was VTE Risk Assessment Performed: Yes VTE Score: 5 VTE Risk Level: Low Risk - Prophylaxis VTE Prophylaxis Ordered?: Yes Types of VTE Prophylaxis: Pharmacological Pharmacologic Type: Enoxaparin (WARFARIN ALSO ORDERED UNTIL INR IS THERAPEUTIC) - VTE Diagnosis Confirmed Treatment or plan recommended: Continue Current Treatment
[2018-02-04 08:17] LABS: Lymphocytes % 2 % (10-50); Monocytes % 3 % (2-9); Neutrophils % 94 % (42-76); Total Cells Counted 100
--- NOTE | 2018-02-04 08:17 | Progress Note ---
<Анна Flores - Last Filed: 02/04/18 08:13> Internal Medicine - PN: Subj *Date: 02/04/18 *Time: 08:13 Interval history: States he does feel better today. He is not as weak or confused. He states his cough has improved slightly. He was able to get a sputum sample. Did rest last night and has eaten a good breakfast this morning. Exam Vital signs and Labs for Last 24 Hours: Temp Pulse Resp BP Pulse Ox 98.5 F 69 20 106/55 92 L 02/04/18 04:00 02/04/18 06:25 02/04/18 04:00 02/04/18 04:00 02/04/18 06:25 Laboratory Results - last 24 hr 02/03/18 14:15: WBC 6.3 D, RBC 3.27 L, Hgb 8.8 L, Hct 27.5 L, MCV 84.1, MCH 26.9 L, MCHC 32.0, RDW 18.0 H, Plt Count 169, MPV 7.1 L, Neut % (Auto) 90.1 H, Lymph % (Auto) 6.6 L, [place] % (Auto) 2.9, Eos % (Auto) 0.2, Baso % (Auto) 0.1, Neut # (Auto) 5.7, Lymph # (Auto) 0.4 L, [place] # (Auto) 0.2, Eos # (Auto) 0.0, Baso # (Auto) 0.0, Total Counted 100, Neutrophils % (Manual) 93 H, Lymphocytes % (Manual) 5 L, Monocytes % (Manual) 2, Platelet Estimate Normal 02/03/18 14:15: Sodium 137, Potassium 3.6, Chloride 99, Carbon Dioxide 31, Anion Gap 10.6, BUN 23 H D, Creatinine 0.94, Estimated Creat Clear 87, Estimated GFR 84, Est GFR ( Amer) 101, Glucose 94, Calcium 8.6, Magnesium 1.3 L, Total Bilirubin 0.8, AST 53 H, ALT 13, Alkaline Phosphatase 224 H, Total Protein 5.8 L, Albumin 2.5 L, Globulin 3.3 H, Albumin/Globulin Ratio 0.8 L 02/03/18 14:15: PT 17.8 H, INR 1.64 H 02/03/18 14:15: Influenza Type A Ag Negative, Influenza Type B Ag Negative, Mycoplasma pneumon IgM Non-reactive 02/04/18 06:19: WBC 4.2 L D, RBC 3.03 L, Hgb 8.2 L, Hct 25.8 L, MCV 85.1, MCH 27.1, MCHC 31.9, RDW 17.9 H, Plt Count 147, MPV 6.9 L, Neut % (Auto) 92.5 H, Lymph % (Auto) 4.9 L, [place] % (Auto) 2.3, Eos % (Auto) 0.3, Baso % (Auto) 0.1, Neut # (Auto) 3.9, Lymph # (Auto) 0.2 L, [place] # (Auto) 0.1, Eos # (Auto) 0.0, Baso # (Auto) 0.0 02/04/18 06:19: PT 15.4 H, INR 1.42 H 02/04/18 06:19: Sodium 138, Potassium 4.3, Chloride 103, Carbon Dioxide 27, Anion Gap 12.3, BUN 19 H, Creatinine 0.92, Estimated Creat Clear 88, Estimated GFR 86, Est GFR ( Amer) 104, Glucose 135 H D I & O for Last 24 hours: Intake & Output 02/01/18 02/02/18 02/03/18 02/04/18 11:59 11:59 11:59 11:59 Intake Total 1929 / 1929 Output Total 200 / 200 Balance 1729 / 1729 Weight 149 lb 8 oz - Constitutional no acute distress - *Routine Respiratory Exam Present: decreased breath sounds, wheezes (faint in the left base) - *Routine Cardiovascular Exam Present: RRR - *Routine Abdominal Exam Present: soft, normoactive bowel sounds. Absent: tenderness - *Routine Extremities Exam Absent: edema - *Routine Skin Exam Present: pallor Assessment and Plan (1) Pneumonia Current visit: No Status: Acute Category: Medical Code(s): J18.9 - Pneumonia, unspecified organism (2) Dehydration Current visit: No Status: Acute Category: Medical Code(s): E86.0 - Dehydration (3) Anemia Current visit: Yes Status: Acute Category: Medical Code(s): D64.9 - Anemia , unspecified (4) Hypomagnesemia Current visit: Yes Status: Acute Category: Medical Code(s): E83.42 - Hypomagnesemia (5) Subtherapeutic international normalized ratio (INR) Current visit: Yes Status: Acute Category: Medical Code(s): R79.1 - Abnormal coagulation profile (6) Hx of deep venous thrombosis Current visit: No Status: Chronic Category: Medical Code(s): Z86.718 - Personal history of other venous thrombosis and embolism (7) Lung cancer metastatic to brain Current visit: No Status: Chronic Category: Medical Code(s): C34.90 - Malignant neoplasm of unspecified part of unspecified bronchus or lung; C79.31 - Secondary malignant neoplasm of brain - Assessment and plan all Dx Assessment and Plan for all problems:: Patient has improved however his H&H has decreased. Will discuss a blood transfusion with Dr. Stewart today. Will await sputum results. <Kirill Stewart - Last Filed: 02/04/18 17:31> Internal Medicine - PN: Subj *Date: 02/04/18 *Time: 17:30 Exam Vital signs and Labs for Last 24 Hours: Temp Pulse Resp BP Pulse Ox 98.0 F 78 16 110/51 99 02/04/18 16:00 02/04/18 16:00 02/04/18 16:00 02/04/18 16:00 02/04/18 16:00 Laboratory Results - last 24 hr 02/04/18 06:19: WBC 4.2 L D, RBC 3.03 L, Hgb 8.2 L, Hct 25.8 L, MCV 85.1, MCH 27.1, MCHC 31.9, RDW 17.9 H, Plt Count 147, MPV 6.9 L, Neut % (Auto) 92.5 H, Lymph % (Auto) 4.9 L, [place] % (Auto) 2.3, Eos % (Auto) 0.3, Baso % (Auto) 0.1, Neut # (Auto) 3.9, Lymph # (Auto) 0.2 L, [place] # (Auto) 0.1, Eos # (Auto) 0.0, Baso # (Auto) 0.0, Total Counted 100, Neutrophils % (Manual) 94 H, Band Neutrophils % 1.0, Lymphocytes % (Manual) 2 L, Monocytes % (Manual) 3, Platelet Estimate Normal, Hypochromasia 2+, Poikilocytosis 2+, Tear Drop Cells 2+, Ovalocytes 1+ 02/04/18 06:19: PT 15.4 H, INR 1.42 H 02/04/18 06:19: Sodium 138, Potassium 4.3, Chloride 103, Carbon Dioxide 27, Anion Gap 12.3, BUN 19 H, Creatinine 0.92, Estimated Creat Clear 88, Estimated GFR 86, Est GFR ( Amer) 104, Glucose 135 H D 02/04/18 09:15: Blood Type O Positive, Antibody Screen Negative, Crossmatch (AHG ) See Detail I & O for Last 24 hours: Intake & Output 02/02/18 02/03/18 02/04/18 02/05/18 11:59 11:59 11:59 11:59 Intake Total 1929 / 1929 Output Total 200 / 200 Balance 1729 / 1729 Weight 149 lb 8 oz 149 lb 7.998 oz Microbiology Reports for the Last 24 Hours: Microbiology 02/03/18 14:15 Blood Blood Culture - Preliminary NO GROWTH AFTER 24 HOURS 02/04/18 08:05 Sputum - Expectorated Sputum Gram Stain - Final Assessment and Plan (1) Pneumonia Current visit: No Status: Acute Category: Medical Code(s): J18.9 - Pneumonia, unspecified organism (2) Dehydration Current visit: No Status: Acute Category: Medical Code(s): E86.0 - Dehydration (3) Anemia Current visit: Yes Status: Acute Category: Medical Code(s): D64.9 - Anemia , unspecified (4) Hypomagnesemia Current visit: Yes Status: Acute Category: Medical Code(s): E83.42 - Hypomagnesemia (5) Subtherapeutic international normalized ratio (INR) Current visit: Yes Status: Acute Category: Medical Code(s): R79.1 - Abnormal coagulation profile (6) Hx of deep venous thrombosis Current visit: No Status: Chronic Category: Medical Code(s): Z86.718 - Personal history of other venous thrombosis and embolism (7) Lung cancer metastatic to brain Current visit: No Status: Chronic Category: Medical Code(s): C34.90 - Malignant neoplasm of unspecified part of unspecified bronchus or lung; C79.31 - Secondary malignant neoplasm of brain - Assessment and plan all Dx Assessment and Plan for all problems:: More alert today. REsted well. Sensorium is more clear this AM. H&H has dropped. Will proceed with blood transfusion. Will continue current antibiotic regimen pending cultures.
[2018-02-04 08:18] LABS: Hypochromasia 2+
[2018-02-04 08:20] LABS: Ovalocytes 1+; Tear Drop Cells 2+
--- NOTE | 2018-02-05 08:33 | Progress Note ---
Internal Medicine - PN: Subj *Date: 02/05/18 *Time: 08:29 Interval history: Did not sleep as well but feels much better after blood transfusion. Appetite has improved. Has been up to BR w/o dizziness. Exam Vital signs and Labs for Last 24 Hours: Temp Pulse Resp BP Pulse Ox 97.8 F 68 18 145/60 97 02/05/18 08:00 02/05/18 08:00 02/05/18 08:00 02/05/18 08:00 02/05/18 08:00 Laboratory Results - last 24 hr 02/04/18 09:15: Blood Type O Positive, Antibody Screen Negative, Crossmatch (AHG ) See Detail I & O for Last 24 hours: Intake & Output 02/02/18 02/03/18 02/04/18 02/05/18 11:59 11:59 11:59 11:59 Intake Total 1929 / 1929 480 / 480 Output Total 200 / 200 480 / 480 Balance 1729 / 1729 0 / 0 Weight 149 lb 8 oz 157 lb 3 oz Microbiology Reports for the Last 24 Hours: Microbiology 02/04/18 08:05 Sputum - Expectorated Sputum Gram Stain - Final 02/04/18 08:05 Sputum - Expectorated Sputum Sputum Culture - Preliminary 02/03/18 18:50 Blood Blood Culture - Preliminary NO GROWTH AFTER 24 HOURS 02/03/18 14:15 Blood Blood Culture - Preliminary NO GROWTH AFTER 24 HOURS - Constitutional Comments: very alert and oriented. - *Routine Respiratory Exam Comments: bilateral rhonchi in bases, L>R; no wheezes - *Routine Cardiovascular Exam Present: RRR - *Routine Abdominal Exam Present: soft. Absent: tenderness, distended Assessment and Plan (1) Pneumonia Current visit: No Status: Acute Category: Medical Code(s): J18.9 - Pneumonia, unspecified organism (2) Dehydration Current visit: No Status: Acute Category: Medical Code(s): E86.0 - Dehydration (3) Anemia Current visit: Yes Status: Acute Category: Medical Code(s): D64.9 - Anemia , unspecified (4) Hypomagnesemia Current visit: Yes Status: Acute Category: Medical Code(s): E83.42 - Hypomagnesemia (5) Subtherapeutic international normalized ratio (INR) Current visit: Yes Status: Acute Category: Medical Code(s): R79.1 - Abnormal coagulation profile (6) Hx of deep venous thrombosis Current visit: No Status: Chronic Category: Medical Code(s): Z86.718 - Personal history of other venous thrombosis and embolism (7) Lung cancer metastatic to brain Current visit: No Status: Chronic Category: Medical Code(s): C34.90 - Malignant neoplasm of unspecified part of unspecified bronchus or lung; C79.31 - Secondary malignant neoplasm of brain - Assessment and plan all Dx Assessment and Plan for all problems:: Much improved. Still awaiting cultures. Continue current antibiotics. D/c IV fluids. Encourage activity. AM labs
[2018-02-06 07:26] LABS: Hematocrit 29.6 % (42.0-52.0); Hemoglobin 9.5 g/dL (14.1-18.0); Lymphocytes # 0.3 K/mm3 (0.7-4.5); Lymphocytes % 3.9 K/mm3 (10-50); Mean Corpuscular HGB Conc 32.2 g/dL (31.8-35.4); Mean Corpuscular Hemoglobin 27.6 pg (27.0-31.2); Mean Corpuscular Volume 85.9 fl (80-94); Mean Platelet Volume 7.8 fl (7.4-10.4); Monocytes # 0.3 K/mm3 (0.1-1.0); Monocytes % 3.1 % (1.7-9.3); Neutrophils # 8.3 K/mm3 (1.8-7.8); Platelet Count 132 K/mm3 (142-424); Red Blood Count 3.45 M/mm3 (4.60-6.20)
[2018-02-06 07:39] LABS: INR 7.16 (0.9-1.1); Prothrombin Time 78.9 seconds (9.4-11.8)
--- NOTE | 2018-02-06 09:09 | Progress Note ---
Internal Medicine - PN: Subj *Date: 02/06/18 *Time: 10:19 Interval history: Did not sleep well for no apparent reason. Was able to walk in chan some yesterday. Feels a little stonger. Still with cough but less productive. Exam Vital signs and Labs for Last 24 Hours: Temp Pulse Resp BP Pulse Ox 98.2 F 76 18 119/59 95 02/06/18 07:52 02/06/18 07:52 02/06/18 07:52 02/06/18 07:52 02/06/18 08:00 Laboratory Results - last 24 hr 02/06/18 06:55: WBC 9.0 D, RBC 3.45 L, Hgb 9.5 L, Hct 29.6 L, MCV 85.9, MCH 27.6, MCHC 32.2, RDW 17.0, Plt Count 132 L, MPV 7.8, Neut % (Auto) 93.0 H, Lymph % (Auto) 3.9 L, [place] % (Auto) 3.1, Eos % (Auto) 0.0 L, Baso % (Auto) 0.0 L , Neut # (Auto) 8.3 H, Lymph # (Auto) 0.3 L, [place] # (Auto) 0.3, Eos # (Auto) 0.0 , Baso # (Auto) 0.0 02/06/18 06:55: PT 78.9 H, INR 7.16 H I & O for Last 24 hours: Intake & Output 02/03/18 02/04/18 02/05/18 02/06/18 11:59 11:59 11:59 11:59 Intake Total 1929 / 1929 480 / 480 1470 / 1470 Output Total 200 / 200 480 / 480 Balance 1729 / 1729 0 / 0 1470 / 1470 Weight 149 lb 8 oz 157 lb 3 oz 157 lb 1 oz Microbiology Reports for the Last 24 Hours: Microbiology 02/04/18 08:05 Sputum - Expectorated Sputum Gram Stain - Final 02/04/18 08:05 Sputum - Expectorated Sputum Sputum Culture - Final Normal Respiratory [place] 02/03/18 18:50 Blood Blood Culture - Preliminary NO GROWTH AFTER 48 HOURS 02/03/18 14:15 Blood Blood Culture - Preliminary NO GROWTH AFTER 48 HOURS - Constitutional no acute distress - *Routine Respiratory Exam Comments: coarse rhonchi in bilateral lower lobes. No wheezes - *Routine Cardiovascular Exam Present: RRR Assessment and Plan (1) Pneumonia Current visit: No Status: Acute Category: Medical Code(s): J18.9 - Pneumonia, unspecified organism (2) Dehydration Current visit: No Status: Acute Category: Medical Code(s): E86.0 - Dehydration (3) Anemia Current visit: Yes Status: Acute Category: Medical Code(s): D64.9 - Anemia , unspecified (4) Hypomagnesemia Current visit: Yes Status: Acute Category: Medical Code(s): E83.42 - Hypomagnesemia (5) Subtherapeutic international normalized ratio (INR) Current visit: Yes Status: Acute Category: Medical Code(s): R79.1 - Abnormal coagulation profile (6) Hx of deep venous thrombosis Current visit: No Status: Chronic Category: Medical Code(s): Z86.718 - Personal history of other venous thrombosis and embolism (7) Lung cancer metastatic to brain Current visit: No Status: Chronic Category: Medical Code(s): C34.90 - Malignant neoplasm of unspecified part of unspecified bronchus or lung; C79.31 - Secondary malignant neoplasm of brain (8) Supratherapeutic INR Current visit: Yes Status: Acute Category: Medical Code(s): R79.1 - Abnormal coagulation profile - Assessment and plan all Dx Assessment and Plan for all problems:: Making slow steady progress. Continue current treatment. Hold Coumadin. Possible discharge in AM.
[2018-02-06 10:38] LABS: Lymphocytes % 6 % (10-50); Monocytes % 3 % (2-9); Neutrophils % 89 % (42-76); RBC Morphology Normal; Total Cells Counted 100
--- NOTE | 2018-02-06 15:52 | Progress Note ---
Internal Medicine - PN: Subj *Date: 02/06/18 *Time: 15:52 Exam Vital signs and Labs for Last 24 Hours: Temp Pulse Resp BP Pulse Ox 98.6 F 76 18 105/62 94 L 02/06/18 12:00 02/06/18 13:03 02/06/18 12:00 02/06/18 12:00 02/06/18 12:00 Laboratory Results - last 24 hr 02/06/18 06:55: WBC 9.0 D, RBC 3.45 L, Hgb 9.5 L, Hct 29.6 L, MCV 85.9, MCH 27.6, MCHC 32.2, RDW 17.0, Plt Count 132 L, MPV 7.8, Neut % (Auto) 93.0 H, Lymph % (Auto) 3.9 L, [place] % (Auto) 3.1, Eos % (Auto) 0.0 L, Baso % (Auto) 0.0 L , Neut # (Auto) 8.3 H, Lymph # (Auto) 0.3 L, [place] # (Auto) 0.3, Eos # (Auto) 0.0 , Baso # (Auto) 0.0, Total Counted 100, Neutrophils % (Manual) 89 H, Band Neutrophils % 2.0, Lymphocytes % (Manual) 6 L, Monocytes % (Manual) 3, Platelet Estimate Slight decrease, RBC Morphology Normal 02/06/18 06:55: PT 78.9 H, INR 7.16 H I & O for Last 24 hours: Intake & Output 02/03/18 02/04/18 02/05/18 02/06/18 23:59 23:59 23:59 23:59 Intake Total 120 / 120 2289 / 2289 1470 / 1470 Output Total 680 / 680 Balance 120 / 120 1609 / 1609 1470 / 1470 Weight 68.181 kg 67.812 kg 71.299 kg 71.242 kg Microbiology Reports for the Last 24 Hours: Microbiology 02/03/18 14:15 Blood Blood Culture - Preliminary NO GROWTH AFTER 72 HOURS 02/04/18 08:05 Sputum - Expectorated Sputum Gram Stain - Final 02/04/18 08:05 Sputum - Expectorated Sputum Sputum Culture - Final Normal Respiratory [place] 02/03/18 18:50 Blood Blood Culture - Preliminary NO GROWTH AFTER 48 HOURS Assessment and Plan (1) Pneumonia Current visit: No Status: Acute Category: Medical Code(s): J18.9 - Pneumonia, unspecified organism (2) Dehydration Current visit: No Status: Acute Category: Medical Code(s): E86.0 - Dehydration (3) Anemia Current visit: Yes Status: Acute Category: Medical Code(s): D64.9 - Anemia , unspecified (4) Hypomagnesemia Current visit: Yes Status: Acute Category: Medical Code(s): E83.42 - Hypomagnesemia (5) Subtherapeutic international normalized ratio (INR) Current visit: Yes Status: Acute Category: Medical Code(s): R79.1 - Abnormal coagulation profile (6) Hx of deep venous thrombosis Current visit: No Status: Chronic Category: Medical Code(s): Z86.718 - Personal history of other venous thrombosis and embolism (7) Lung cancer metastatic to brain Current visit: No Status: Chronic Category: Medical Code(s): C34.90 - Malignant neoplasm of unspecified part of unspecified bronchus or lung; C79.31 - Secondary malignant neoplasm of brain (8) Supratherapeutic INR Current visit: Yes Status: Acute Category: Medical Code(s): R79.1 - Abnormal coagulation profile The patient's infection will respond to the chosen ABx?: Yes Is the patient receiving the right drug, dose, and route?: Yes Could a more targeted ABx be ordered?: No
[2018-02-07 08:06] LABS: INR 8.42 (0.9-1.1); Prothrombin Time 92.9 seconds (9.4-11.8)
--- NOTE | 2018-02-07 09:49 | Progress Note ---
Internal Medicine - PN: Subj *Date: 02/07/18 *Time: 09:46 Interval history: Slept a little better last night. Still with cough that is mostly nonproductive. Appetite is improved. Has been ambulating in hallway. Exam Vital signs and Labs for Last 24 Hours: Temp Pulse Resp BP Pulse Ox 98.5 F 79 18 115/57 96 02/07/18 08:00 02/07/18 08:00 02/07/18 08:00 02/07/18 08:00 02/07/18 09:11 Laboratory Results - last 24 hr 02/06/18 06:55: Total Counted 100, Neutrophils % (Manual) 89 H, Band Neutrophils % 2.0, Lymphocytes % (Manual) 6 L, Monocytes % (Manual) 3, Platelet Estimate Slight decrease, RBC Morphology Normal 02/07/18 06:30: PT 92.9 H, INR 8.42 H I & O for Last 24 hours: Intake & Output 02/04/18 02/05/18 02/06/18 02/07/18 11:59 11:59 11:59 11:59 Intake Total 1929 / 1929 480 / 480 1470 / 1470 1520 / 1520 Output Total 200 / 200 480 / 480 Balance 1729 / 1729 0 / 0 1470 / 1470 1520 / 1520 Weight 149 lb 8 oz 157 lb 3 oz 157 lb 1 oz 154 lb 9 oz Microbiology Reports for the Last 24 Hours: Microbiology 02/03/18 18:50 Blood Blood Culture - Preliminary NO GROWTH AFTER 72 HOURS 02/03/18 14:15 Blood Blood Culture - Preliminary NO GROWTH AFTER 72 HOURS 02/04/18 08:05 Sputum - Expectorated Sputum Gram Stain - Final 02/04/18 08:05 Sputum - Expectorated Sputum Sputum Culture - Final Normal Respiratory [place] - Constitutional no acute distress - *Routine Respiratory Exam Comments: coarse BS with few rhonchi - *Routine Cardiovascular Exam Present: RRR - *Routine Abdominal Exam Present: soft. Absent: tenderness, distended Assessment and Plan (1) Pneumonia Current visit: No Status: Acute Category: Medical Code(s): J18.9 - Pneumonia, unspecified organism (2) Dehydration Current visit: No Status: Acute Category: Medical Code(s): E86.0 - Dehydration (3) Anemia Current visit: Yes Status: Acute Category: Medical Code(s): D64.9 - Anemia , unspecified (4) Hypomagnesemia Current visit: Yes Status: Acute Category: Medical Code(s): E83.42 - Hypomagnesemia (5) Subtherapeutic international normalized ratio (INR) Current visit: Yes Status: Acute Category: Medical Code(s): R79.1 - Abnormal coagulation profile (6) Hx of deep venous thrombosis Current visit: No Status: Chronic Category: Medical Code(s): Z86.718 - Personal history of other venous thrombosis and embolism (7) Lung cancer metastatic to brain Current visit: No Status: Chronic Category: Medical Code(s): C34.90 - Malignant neoplasm of unspecified part of unspecified bronchus or lung; C79.31 - Secondary malignant neoplasm of brain (8) Supratherapeutic INR Current visit: Yes Status: Acute Category: Medical Code(s): R79.1 - Abnormal coagulation profile - Assessment and plan all Dx Assessment and Plan for all problems:: He is stable for discharge today on continue antibiotics. He will hold his Coumadin dose until rechecked in office in 3 days
[2018-02-07 11:48] VITALS: BP 110/60
--- NOTE | 2018-02-07 15:00 | Discharge Summary ---
General - General Admission date: 02/03/18 Discharge date: 02/07/18 HPI HPI: Mr. Garcia is a 51-year-old white male with a history of lung cancer with metastases to the brain who just finished a repeat course of 10 radiation treatments last week. His states he has been feeling poorly all week and went to the ER on Wednesday. He was felt to be dehydrated and was given IVF's. He did not want to be admitted at that time and was sent home. Of note, the CXR from the ER was read as a LLL pneumonia. He presented to the office of [facility] today and has continued to feel poorly. He has had a nonproductive cough and some SOA. He is extremely weak. He has had a scratchy throat and some nasal congestion. He denies any vomiting or diarrhea. His family states he has been slighly confused. Hospital Course Hospital Course: A repeat CXR showed a LLL pneumonia. The patient was admitted and started on IV abx, duonebs, and IVF's. His INR was subtherapeutic, therefore he was started on lovenox. His magnesium was low, therefore his supplmentation was increased. The patient's symptoms did improve and he was able to eat. His confusion resolved. He had to be transfused d/t a low H&H. He felt much better after the transfusion. He was able to get up and go to the bathroom without any dizziness. He was able to walk in the chan. His cough became less productive. His INR did increase and his coumadin had to be held. His sputum showed normal kristina and his blood cultures were normal. He was stable to be discharged home on abx and will need to hold his coumadin until f/u in the office. Objective Vital signs: Temp Pulse Resp BP Pulse Ox 98.5 F 75 18 110/60 97 02/07/18 11:47 02/07/18 11:47 02/07/18 11:47 02/07/18 11:47 02/07/18 11:47 Narrative: - Constitutional Comments: Does not appear to feel well - *Routine HEENT Exam Eye: Present: EOMI, PERRL ENT: Present: mucous membranes moist - *Routine Neck Exam Present: supple, full ROM - *Routine Respiratory Exam Present: decreased breath sounds - *Routine Cardiovascular Exam Present: RRR, tachycardia - *Routine Abdominal Exam Present: soft, normoactive bowel sounds. Absent: tenderness - *Routine Extremities Exam Absent: edema - *Routine Skin Exam Present: pallor - *Routine Neurological Exam Present: alert, oriented X3 (confused at times ) Results Labs on day of discharge: Labs from last 24 hours 02/07/18 06:30 PT 92.9 H INR 8.42 H Preliminary micro results at discharge 02/03/18 14:15 Blood Culture - Preliminary Blood NO GROWTH AFTER 4 DAYS 02/03/18 18:50 Blood Culture - Preliminary Blood NO GROWTH AFTER 72 HOURS DS: Diagnosis - Discharge Diagnosis (1) Pneumonia Status: Acute (2) Dehydration Status: Acute (3) Anemia Status: Acute (4) Hypomagnesemia Status: Acute (5) Subtherapeutic international normalized ratio (INR) Status: Acute (6) Hx of deep venous thrombosis Status: Chronic (7) Lung cancer metastatic to brain Status: Chronic Discharge Plan - Patient Discharge Instructions ACTIVITY: Continue current activity DIET: continue same diet Patient Instructions: Warfarin, Coumadin Vitamin K/ Diet, Coumadin Therapy Booklet - Follow up Plan Follow up with: Kirill Stewart MD [Primary Care Provider] - 02/10/18 Disposition: Home, Self-Usp Medications: Home Medications Medication Instructions Recorded Confirmed Type Folic Acid [Folic Acid 1mg tablet] 1 mg PO DAILY 11/14/17 02/03/18 History Magnesium Oxide [Magox 400] 400 mg PO BID 11/14/17 02/03/18 History Ondansetron HCl [Ondansetron 8mg 8 mg PO Q8HP PRN 11/14/17 02/03/18 History Tab] Pantoprazole Sodium [Protonix 40mg 40 mg PO DAILY 11/14/17 02/03/18 History tablet] Potassium Chloride [Klor-con 20 20 meq PO DAILY 11/14/17 02/03/18 History mEq tablet] Baclofen [Lioresal 10mg tablet] 10 mg PO HS 02/01/18 02/03/18 History Dexamethasone 10 mg PO TID 02/01/18 02/03/18 History Temazepam [Restoril 15mg capsule] 15 mg PO HS 02/01/18 02/03/18 History Prescriptions/Medication Reconciliation: New Cefdinir [Omnicef 300mg Capsule] 300 mg PO BID #14 cap Continue Potassium Chloride [Klor-con 20 mEq tablet] 20 meq PO DAILY Magnesium Oxide [Magox 400] 400 mg PO BID Folic Acid [Folic Acid 1mg tablet] 1 mg PO DAILY Baclofen [Lioresal 10mg tablet] 10 mg PO HS Dexamethasone 10 mg PO TID Temazepam [Restoril 15mg capsule] 15 mg PO HS Pantoprazole Sodium [Protonix 40mg tablet] 40 mg PO DAILY Ondansetron HCl [Ondansetron 8mg Tab] 8 mg PO Q8HP PRN PRN Reason: Nausea And Vomiting Discontinued Warfarin Sodium 5 mg PO HS
== END 2018-02-07 12:15 | disposition home or self-care (01) ==
LOC: 2ND → OBSVTOIN 13:08
PROVIDERS: ADMIT Family Medicine; ATTEND Family Medicine

== ENCOUNTER 2018-02-09 21:39 | Observation (INO) ==
[2018-02-09 22:13] LABS: Basophils % 0.1 % (0.1-2.0); Eosinophils % 0.4 % (0.1-12.0); Hematocrit 36.1 % (42.0-52.0); Hemoglobin 11.6 g/dL (14.1-18.0); Lymphocytes # 0.7 K/mm3 (0.7-4.5); Mean Corpuscular HGB Conc 32.2 g/dL (31.8-35.4); Mean Corpuscular Hemoglobin 27.5 pg (27.0-31.2); Mean Corpuscular Volume 85.4 fl (80-94); Mean Platelet Volume 7.5 fl (7.4-10.4); Monocytes # 0.2 K/mm3 (0.1-1.0); Monocytes % 3.2 % (1.7-9.3); Neutrophils # 6.3 K/mm3 (1.8-7.8); Neutrophils % 86.3 % (37.0-80.0); Platelet Count 166 K/mm3 (142-424); Red Blood Count 4.23 M/mm3 (4.60-6.20); Red Cell Distribution Width 17.5 % (11.5-17.5); White Blood Count 7.4 K/mm3 (4.8-10.8)
--- NOTE | 2018-02-09 22:16 | Emergency Department Note ---
ED Disposition Clinical Impression: Dehydration Pneumonia Qualifiers: Pneumonia type: due to unspecified organism Laterality: left Lung location: lower lobe of lung Qualified Code(s): J18.1 - Lobar pneumonia, unspecified organism Disposition: Admitted as Observation Condition on Discharge: Good Referrals: Kirill Stewart MD [Primary Care Provider] - - Critical Care Critical Care Time: No Attestation: On 02/09/18, the high probability of a clinically significant, sudden or life threatening deterioration of the following system(s) required my full and direct attention, intervention and personal management. The time I documented below is in addition to time spent performing reported procedures but includes the following listed in this critical care notation. Medical Decision Making - Medical Records Medical records reviewed: Yes: I reviewed the patient's medical records. - Carlos Inquiry Pt receiving controlled substance: No Vital Signs: 02/09/18 21:40 Temperature 99 F Temperature Source Oral Pulse Rate [Right Radial] 111 H Respiratory Rate 20 Blood Pressure [Right Arm] 117/61 Blood Pressure Mean [Right Arm] 79 02 Sat by Pulse Oximetry 94 L - Lab Data Lab results reviewed: Yes: I reviewed the patient's lab results. Lab Results 02/09/18 22:00: WBC 7.4, RBC 4.23 L, Hgb 11.6 L, Hct 36.1 L, MCV 85.4, MCH 27.5 , MCHC 32.2, RDW 17.5, Plt Count 166 D, MPV 7.5, Neut % (Auto) 86.3 H, Lymph % (Auto) 10.0, [place] % (Auto) 3.2, Eos % (Auto) 0.4, Baso % (Auto) 0.1, Neut # ( Auto) 6.3, Lymph # (Auto) 0.7, [place] # (Auto) 0.2, Eos # (Auto) 0.0, Baso # (Auto ) 0.0 02/09/18 22:00: Sodium 136, Potassium 3.9, Chloride 98, Carbon Dioxide 27, Anion Gap 14.9, BUN 32 H, Creatinine 1.04, Estimated Creat Clear 78, Estimated GFR 74, Est GFR ( Amer) 90, Glucose 110 H, Calcium 8.9, Total Bilirubin 1.1 H, AST 86 H, ALT 21, Alkaline Phosphatase 287 H, Total Protein 6.3 L, Albumin 2.6 L, Globulin 3.7 H, Albumin/Globulin Ratio 0.7 L 02/09/18 22:00: Lactic Acid 1.8 Result diagrams: 02/09/18 22:00 02/09/18 22:00 Orders (Tests/Meds): ED MEDICATIONS Generic Name Dose Route Start Last Admin Trade Name Freq PRN Reason Stop Dose Admin Sodium Chloride 1,000 mls @ 999 mls/hr 02/09/18 22:00 02/09/18 21:58 Sod Chlor 0.9% 1000ml Bag IV 02/09/18 23:00 999 mls/hr .Q1H1M RICARDO Administration Discontinued Medications Generic Name Dose Route Start Last Admin Trade Name Freq PRN Reason Stop Dose Admin Ondansetron HCl 4 mg 02/09/18 21:55 02/09/18 21:58 Zofran 4mg/2ml Vial IV 02/09/18 21:56 4 mg ONCE ONE Administration ORDERS Category Date Time Status XR chest portable Stat Exams 02/09/18 21:47 Taken Complete Blood Count Auto Diff Stat Lab 02/09/18 22:00 Results Blood Culture Stat Micro 02/09/18 22:00 Received - Radiology Data #1 Image(s): Chest Image Reviewed: Yes I reviewed the patient's radiology image Preliminary Findings: Abnormal (lll inflitrate ) - Physician Consults Physician Consulted: clem Reason -: Admission Weakness HPI - General Chief complaint: Weakness Stated complaint: weakness Time Seen by Provider: 02/09/18 22:12 Mode of Arrival: Wheelchair Source of Information: Patient, Spouse, Medical Record Limitations: Physical Limitations Description of Symptoms (Recalled from ER Triage Doc. by RN): pt presents with c /o generalized weakness, pt treated for pna and hospitalized recently. states she feels like patient is dehydrated, he is not eating or drinking at all. pt states he "just doesnt have an appetite." - History of Present Illness HPI Narrative: recent admit for cap and dehydration - he was released onwednesday and has been dec loc and dec po intake - no fever or vomiting MD Complaint: generalized weakness Onset (ago): day(s) Duration: constant Migration: none Severity: moderate - Related Data Home Medications Medication Instructions Recorded Confirmed Folic Acid [Folic Acid 1mg tablet] 1 mg PO DAILY 11/14/17 02/09/18 Magnesium Oxide [Magox 400] 400 mg PO BID 11/14/17 02/09/18 Ondansetron HCl [Ondansetron 8mg 8 mg PO Q8HP PRN 11/14/17 02/09/18 Tab] Pantoprazole Sodium [Protonix 40mg 40 mg PO DAILY 11/14/17 02/09/18 tablet] Potassium Chloride [Klor-con 20 20 meq PO DAILY 11/14/17 02/09/18 mEq tablet] Baclofen [Lioresal 10mg tablet] 10 mg PO HS 02/01/18 02/09/18 Dexamethasone 10 mg PO TID 02/01/18 02/09/18 Temazepam [Restoril 15mg capsule] 15 mg PO HS 02/01/18 02/09/18 Cefdinir [Omnicef 300mg Capsule] 300 mg PO BID 02/09/18 02/09/18 Prometh-Codein 6.25-10 mg/5 ml 5 - 10 ml PO Q6HP PRN 02/09/18 02/09/18 Allergies Allergy/AdvReac Type Severity Reaction Status Date / Time No Known Allergies Allergy Verified 11/13/17 22:20 [facility] History I have reviewed the patient's past medical history: Yes Medical History: Reports:: Cancer (lung with mets), Deep Vein Thrombosis, Hypertension, Kidney Stones Denies:: Diabetes Mellitus Type 1, Diabetes Mellitus Type 2, MRSA Other Medical History: Reports: Radiation Therapy Laterality Cases: Right: Arthroscopy Knee Other Surgeries: Yes: Appendectomy, Hernia Repair, Other (brain tumor, lung, right knee) Amputation: No Fractures: No Comment: Resection of brain tumor - Social History Smoking Status: Never smoker Alcohol Intake: never Alcohol Intake Frequency:: holidays/special occasions only Occupational Status: disabled Household Members: spouse - Psychiatric History Expresses thoughts of harming self/others: None Suicide Plan Description: No Plan Family Hx:: Hypertension Comment: Arthritis ROS Obtained: Yes All systems reviewed & no additional complaints - Constitutional Constitutional: Denies fever(s), Reports weakness - Eyes Eyes: Denies change in vision - ENT Ears, Nose, Mouth, and Throat: Denies sore throat - Cardiovascular Cardiovascular: Denies chest pain at rest - Respiratory Respiratory: Yes cough - Gastrointestinal Gastrointestingal: Denies: vomiting - Genitourinary Male Genitourinary: Denies hematuria - Musculoskeletal Musculoskeletal: Denies joint pain - Integumentary/Breasts Skin/Breast: Denies rash - Neurologic Neurologic: Denies seizure-like activity Physical Exam - General General appearance: in no apparent distress, cachectic - Head Head exam: normocephalic - Eye Eye exam: Present: PERRL, EOMI. Absent: scleral icterus - ENT ENT exam: Present: mucous membranes dry - Neck Neck exam: Present: trachea midline - Respiratory Respiratory exam: Absent: respiratory distress - Cardiovascular Cardiovascular exam: Present: regular rate, systolic murmur, +S4 - Abdominal Exam Abdominal exam: Present: soft - Extremities Exam Extremities exam: Absent: calf tenderness - Neurological Exam Neurological exam: Present: CN II-XII intact - Skin Skin exam: Absent: rash
[2018-02-09 22:33] LABS: Albumin Level 2.6 gm/dL (3.4-5.0); Albumin/Globulin Ratio 0.7 (1.1-1.8); Anion Gap 14.9 mEq/L (5-15); Bilirubin,Total 1.1 mg/dL (0.2-1.0); Calcium 8.9 mg/dL (8.5-10.1); Globulin 3.7 gm/dl (1.3-3.2); Potassium 3.9 mmoL/L (3.5-5.1); Total Protein,Serum 6.3 gm/dL (6.4-8.2)
[2018-02-09 23:37] LABS: Lymphocytes % 12 % (10-50); Monocytes % 1 % (2-9); Neutrophils % 87 % (42-76); Total Cells Counted 100
[2018-02-09 23:38] LABS: Anisocytosis 1+; Hypochromasia 1+; Ovalocytes 1+; Tear Drop Cells 1+
[2018-02-10 06:41] LABS: Basophils % 0.1 % (0.1-2.0); Eosinophils % 0.4 % (0.1-12.0); Lymphocytes # 0.5 K/mm3 (0.7-4.5); Mean Corpuscular HGB Conc 32.2 g/dL (31.8-35.4); Mean Corpuscular Hemoglobin 27.6 pg (27.0-31.2); Mean Corpuscular Volume 85.7 fl (80-94); Mean Platelet Volume 7.8 fl (7.4-10.4); Monocytes # 0.2 K/mm3 (0.1-1.0); Monocytes % 4.4 % (1.7-9.3); Neutrophils # 3.8 K/mm3 (1.8-7.8); Neutrophils % 85.2 % (37.0-80.0); Red Blood Count 3.54 M/mm3 (4.60-6.20); Red Cell Distribution Width 17.6 % (11.5-17.5); White Blood Count 4.5 K/mm3 (4.8-10.8)
[2018-02-10 06:54] LABS: Hematocrit 30.3 % (42.0-52.0); Hemoglobin 9.8 g/dL (14.1-18.0)
[2018-02-10 06:55] LABS: Platelet Count 117 K/mm3 (142-424)
--- NOTE | 2018-02-10 07:29 | Pharmacy Consult Notes ---
[facility] Pharmacy VTE Monitoring - Patient Demographics Admission date: 02/09/18 Report Date: 02/10/18 Time: 07:29 Allergies/Adverse Reactions: Patient Allergies No Known Allergies Allergy (Verified 11/13/17 22:20) Height: 1.83 m Weight: 68.266 kg Patient Problems: Current Active Problems Pneumonia (Acute) Dehydration (Acute) - VTE Risk Labs: VTE Related Lab Results Hgb 9.8 g/dL (14.1-18.0) L D 02/10/18 06:23 Hct 30.3 % (42.0-52.0) L 02/10/18 06:23 Plt Count 117 K/mm3 (142-424) L D 02/10/18 06:23 BUN 28 mg/dL (7-18) H 02/10/18 06:23 Creatinine 0.84 mg/dL (0.70-1.30) 02/10/18 06:23 Estimated Creat Clear 97 mL/min (0-300) 02/10/18 06:23 Was VTE Risk Assessment Performed: Yes VTE Risk Level: Moderate Risk - Prophylaxis VTE Prophylaxis Ordered?: Yes Types of VTE Prophylaxis: TEDS Knee High Location of Applied Device: Bilateral Lower Extremeties - VTE Diagnosis Confirmed Treatment or plan recommended: Continue Current Treatment
--- NOTE | 2018-02-10 08:13 | History & Physical Report ---
*Admission Date: 02/09/18 <Анна Flores 02/10/18 08:13> *Chief complaint: SOA, cough, confusion <Анна Flores 02/10/18 08:13> *History of present illness: Mr. Garcia is a 51-year-old white male with a history of lung cancer with metastases to the brain that just finished a repeat course of 10 radiation treatments 2 weeks ago. He was just discharged home from [facility] on Wednesday after a stay for pneumonia and dehydration. His states he has been feeling poorly since discharge. He has not been eating and drinking well and has had a horrible cough. His states he began getting confused and sleeping all the time at home. She was worried he was dehydrated and needed IVF's so they came back to the ER and he was admitted for further evaluation and treatment. <Анна Flores 02/10/18 08:20> [facility] History Medical History: Reports:: Cancer (lung with mets), Deep Vein Thrombosis, Hypertension, Kidney Stones Denies:: Diabetes Mellitus Type 1, Diabetes Mellitus Type 2, MRSA <Анна Flores 02/10/18 08:13> Other Medical History: Reports: Chemotherapy, Radiation Therapy <Анна Flores 02/10/18 08:13> Laterality Cases: Right: Arthroscopy Knee <Анна Flores 02/10/18 08:13> Other Surgeries: Yes: Appendectomy, Hernia Repair, Other (brain tumor, lung, right knee) <Анна Flores 02/10/18 08:13> Amputation: No <Анна Flores 02/10/18 08:13> Fractures: No <Анна Flores 02/10/18 08:13> - *Social History Educational Level: Completed High School <Анна Flores 02/10/18 08:13> Smoking Status: Never smoker <Анна Flores 02/10/18 08:13> Alcohol Intake: never <Анна Flores 02/10/18 08:13> Alcohol Intake Frequency:: holidays/special occasions only <Анна Flores 08:13> Occupational Status: disabled <Анна Flores 02/10/18 08:13> Housing: house <Анна Flores - 02/10/18 08:13> Household Members: spouse <Анна Flores 02/10/18 08:13> - Psychiatric History Expresses thoughts of harming self/others: None <Анна Flores 02/10/18 08: 13> Suicide Plan Description: No Plan <Анна Flores 02/10/18 08:13> *Family Hx:: Hypertension <Анна Flores 02/10/18 08:13> Review of Systems - Constitutional Reports fatigue, Reports fever(s) (LGF), Reports weakness, Denies headache(s) <Анна Flores 02/10/18 08:20> - Eyes Denies blurry vision, Denies double vision <Анна Flores 02/10/18 08:20> - ENT Denies nasal congestion, Denies sore throat <Анна Flores 02/10/18 08:20> - *Cardiovascular Reports chest pain (tightness), Denies fast heart rate <EduardludwinАнна 08:20> - *Respiratory Reports chest congestion, Reports cough, Reports shortness of breath, Reports wheezing <Анна Flores 02/10/18 08:20> - *Gastrointestinal Reports nausea, Reports vomiting, Denies abdominal pain, Denies loose stools < [facility] 02/10[facility] 08:20> - *Genitourinary Denies difficulty urinating, Denies painful urination <[facility] 08:20> - *Musculoskeletal Denies joint pain <EduardludwinАнна - 02/10/18 08:20> - *Neurologic Reports memory loss, Reports weakness, Denies dizziness, Denies headache(s), Denies seizure-like activity, Denies dizziness <[facility] 02/10/18 08:20 > Meds Home Medications Medication Instructions Recorded Confirmed Type Folic Acid [Folic Acid 1mg tablet] 1 mg PO DAILY 11/14/17 02/09/18 History Magnesium Oxide [Magox 400] 400 mg PO BID 11/14/17 02/09/18 History Ondansetron HCl [Ondansetron 8mg 8 mg PO Q8HP PRN 11/14/17 02/09/18 History Tab] Pantoprazole Sodium [Protonix 40mg 40 mg PO DAILY 11/14/17 02/09/18 History tablet] Potassium Chloride [Klor-con 20 20 meq PO DAILY 11/14/17 02/09/18 History mEq tablet] Baclofen [Lioresal 10mg tablet] 10 mg PO HS 02/01/18 02/09/18 History Dexamethasone 10 mg PO TID 02/01/18 02/09/18 History Temazepam [Restoril 15mg capsule] 15 mg PO HS 02/01/18 02/09/18 History Cefdinir [Omnicef 300mg Capsule] 300 mg PO BID 02/09/18 02/09/18 History Promethazine HCl/Codeine 5 - 10 ml PO Q6HP PRN 02/09/18 02/10/18 History [Prometh-Codein 6.25-10 mg/5 ml] <Kirill Stewart - 02/10/18 13:36> Allergies Allergy/AdvReac Type Severity Reaction Status Date / Time No Known Allergies Allergy Verified 11/13/17 22:20 <Kirill Stewart - 02/10/18 13:36> Exam Vital signs and Labs for Last 24 Hours: Temp Pulse Resp BP Pulse Ox 98.6 F 77 16 96/51 96 02/10/18 11:59 02/10/18 11:59 02/10/18 11:59 02/10/18 11:59 02/10/18 11:59 Laboratory Results - last 24 hr 02/09/18 22:00: WBC 7.4, RBC 4.23 L, Hgb 11.6 L, Hct 36.1 L, MCV 85.4, MCH 27.5 , MCHC 32.2, RDW 17.5, Plt Count 166 D, MPV 7.5, Neut % (Auto) 86.3 H, Lymph % (Auto) 10.0, [place] % (Auto) 3.2, Eos % (Auto) 0.4, Baso % (Auto) 0.1, Neut # ( Auto) 6.3, Lymph # (Auto) 0.7, [place] # (Auto) 0.2, Eos # (Auto) 0.0, Baso # (Auto ) 0.0, Total Counted 100, Neutrophils % (Manual) 87 H, Lymphocytes % (Manual) 12 , Monocytes % (Manual) 1 L, Platelet Estimate Normal, Hypochromasia 1+, Poikilocytosis 1+, Anisocytosis 1+, Tear Drop Cells 1+, Ovalocytes 1+ 02/09/18 22:00: Sodium 136, Potassium 3.9, Chloride 98, Carbon Dioxide 27, Anion Gap 14.9, BUN 32 H, Creatinine 1.04, Estimated Creat Clear 78, Estimated GFR 74, Est GFR ( Amer) 90, Glucose 110 H, Calcium 8.9, Total Bilirubin 1.1 H, AST 86 H, ALT 21, Alkaline Phosphatase 287 H, Total Protein 6.3 L, Albumin 2.6 L, Globulin 3.7 H, Albumin/Globulin Ratio 0.7 L 02/09/18 22:00: Lactic Acid 1.8 02/10/18 06:23: WBC 4.5 L D, RBC 3.54 L, Hgb 9.8 L D, Hct 30.3 L, MCV 85.7, MCH 27.6, MCHC 32.2, RDW 17.6 H, Plt Count 117 L D, MPV 7.8, Neut % (Auto) 85.2 H, Lymph % (Auto) 10.0, [place] % (Auto) 4.4, Eos % (Auto) 0.4, Baso % (Auto) 0.1, Neut # (Auto) 3.8, Lymph # (Auto) 0.5 L, [place] # (Auto) 0.2, Eos # (Auto) 0.0, Baso # (Auto) 0.0, Total Counted 100, Neutrophils % (Manual) 83 H, Lymphocytes % (Manual) 11, Atypical Lymphs % 1.0, Monocytes % (Manual) 5, Platelet Estimate Slight decrease, Hypochromasia 1+, Anisocytosis 1+, Tear Drop Cells 1+, Ovalocytes 1+ 02/10/18 06:23: Sodium 137, Potassium 4.0, Chloride 103, Carbon Dioxide 28, Anion Gap 10.0, BUN 28 H, Creatinine 0.84, Estimated Creat Clear 97, Estimated GFR 95, Est GFR ( Amer) 115 D, Glucose 94, Magnesium 1.7 <Kirill Stewart - 02/10/18 13:36> Temp Pulse Resp BP Pulse Ox 99.0 F 81 12 107/51 97 04/26/18 04:00 02/10/18 04:00 02/10/18 04:00 02/10/18 04:00 02/10/18 04:00 Laboratory Results - last 24 hr 02/09/18 22:00: WBC 7.4, RBC 4.23 L, Hgb 11.6 L, Hct 36.1 L, MCV 85.4, MCH 27.5 , MCHC 32.2, RDW 17.5, Plt Count 166 D, MPV 7.5, Neut % (Auto) 86.3 H, Lymph % (Auto) 10.0, [place] % (Auto) 3.2, Eos % (Auto) 0.4, Baso % (Auto) 0.1, Neut # ( Auto) 6.3, Lymph # (Auto) 0.7, [place] # (Auto) 0.2, Eos # (Auto) 0.0, Baso # (Auto ) 0.0, Total Counted 100, Neutrophils % (Manual) 87 H, Lymphocytes % (Manual) 12 , Monocytes % (Manual) 1 L, Platelet Estimate Normal, Hypochromasia 1+, Poikilocytosis 1+, Anisocytosis 1+, Tear Drop Cells 1+, Ovalocytes 1+ 02/09/18 22:00: Sodium 136, Potassium 3.9, Chloride 98, Carbon Dioxide 27, Anion Gap 14.9, BUN 32 H, Creatinine 1.04, Estimated Creat Clear 78, Estimated GFR 74, Est GFR ( Amer) 90, Glucose 110 H, Calcium 8.9, Total Bilirubin 1.1 H, AST 86 H, ALT 21, Alkaline Phosphatase 287 H, Total Protein 6.3 L, Albumin 2.6 L, Globulin 3.7 H, Albumin/Globulin Ratio 0.7 L 02/09/18 22:00: Lactic Acid 1.8 02/10/18 06:23: WBC 4.5 L D, RBC 3.54 L, Hgb 9.8 L D, Hct 30.3 L, MCV 85.7, MCH 27.6, MCHC 32.2, RDW 17.6 H, Plt Count 117 L D, MPV 7.8, Neut % (Auto) 85.2 H, Lymph % (Auto) 10.0, [place] % (Auto) 4.4, Eos % (Auto) 0.4, Baso % (Auto) 0.1, Neut # (Auto) 3.8, Lymph # (Auto) 0.5 L, [place] # (Auto) 0.2, Eos # (Auto) 0.0, Baso # (Auto) 0.0 02/10/18 06:23: Sodium 137, Potassium 4.0, Chloride 103, Carbon Dioxide 28, Anion Gap 10.0, BUN 28 H, Creatinine 0.84, Estimated Creat Clear 97, Estimated GFR 95, Est GFR ( Amer) 115 D, Glucose 94, Magnesium 1.7 <Анна Flores 02/10/18 08:20> I & O for Last 24 hours: Intake & Output 02/08/18 02/09/18 02/10/18 02/11/18 11:59 11:59 11:59 11:59 Intake Total 926 / 926 Balance 926 / 926 Weight 150 lb 8 oz <TerryKirill Sean 02/10/18 13:36> Intake & Output 02/07/18 02/08/18 02/09/18 02/10/18 11:59 11:59 11:59 11:59 Intake Total 806 / 806 Balance 806 / 806 Weight 150 lb 8 oz <Анна Flores 02/10/18 08:13> - Constitutional Comments: Does not appear to feel well, coughing <Анна Flores 02/10/18 08:20> - *Routine HEENT Exam Head: Absent: normocephalic (scars present from brain surgery) <Анна Flores 02/10/18 08:20> Eye: Present: EOMI, PERRL <Анна Flores 02/10/18 08:20> ENT: Present: mucous membranes dry <Анна Flores 02/10/18 08:20> - *Routine Neck Exam Present: supple, full ROM <Анна Flores 02/10/18 08:20> - *Routine Respiratory Exam Present: wheezes (bilaterally). Absent: crackles <Анна Flores 02/10/18 08 :20> - *Routine Cardiovascular Exam Present: RRR <Анна Flores 02/10/18 08:20> - *Routine Abdominal Exam Present: soft, normoactive bowel sounds. Absent: tenderness <Анна Flores - 02/10/18 08:20> - *Routine Extremities Exam Absent: edema <Анна Flores 02/10/18 08:20> - *Routine Skin Exam Present: intact, pallor <Анна Flores 02/10/18 08:20> - *Routine Neurological Exam confused, answers some questions but stares straight ahead most of the time <Анна Flores 02/10/18 08:20> H&P: Result - Labs Labs: Short CBC 02/09/18 02/10/18 Range/Units 22:00 06:23 WBC 7.4 4.5 L D (4.8-10.8) K/mm3 Hgb 11.6 L 9.8 L D (14.1-18.0) g/dL Hct 36.1 L 30.3 L (42.0-52.0) % Plt Count 166 D 117 L D (142-424) K/mm3 [facility] 02/09/18 02/10/18 22:00 06:23 Sodium 136 137 Potassium 3.9 4.0 Chloride 98 103 Carbon Dioxide 27 28 BUN 32 H 28 H Creatinine 1.04 0.84 Glucose 110 H 94 Calcium 8.9 Liver Function 02/09/18 Range/Units 22:00 Total Bilirubin 1.1 H (0.2-1.0) mg/dL AST 86 H (15-37) U/L ALT 21 (12-78) U/L Alkaline Phosphatase 287 H (46-116) U/L Albumin 2.6 L (3.4-5.0) gm/dL <Kirill Stewart - 02/10/18 13:36> Short CBC 02/09/18 02/10/18 Range/Units 22:00 06:23 WBC 7.4 4.5 L D (4.8-10.8) K/mm3 Hgb 11.6 L 9.8 L D (14.1-18.0) g/dL Hct 36.1 L 30.3 L (42.0-52.0) % Plt Count 166 D 117 L D (142-424) K/mm3 [facility] 02/09/18 02/10/18 22:00 06:23 Sodium 136 137 Potassium 3.9 4.0 Chloride 98 103 Carbon Dioxide 27 28 BUN 32 H 28 H Creatinine 1.04 0.84 Glucose 110 H 94 Calcium 8.9 Liver Function 02/09/18 Range/Units 22:00 Total Bilirubin 1.1 H (0.2-1.0) mg/dL AST 86 H (15-37) U/L ALT 21 (12-78) U/L Alkaline Phosphatase 287 H (46-116) U/L Albumin 2.6 L (3.4-5.0) gm/dL <Анна Flores - 02/10/18 08:13> - Impressions CXR - no change LLL pneumonia <Анна Flores - 02/10/18 08:20> Assessment and Plan (1) Pneumonia Current visit: Yes Status: Acute Qualifiers: Pneumonia type: due to unspecified organism Laterality: left Lung location: lower lobe of lung Qualified Code(s): J18.1 - Lobar pneumonia, unspecified organism Category: Medical Code(s): J18.9 - Pneumonia, unspecified organism (2) Altered mental status Current visit: Yes Status: Acute Category: Medical Code(s): R41.82 - Altered mental status, unspecified (3) Anemia Current visit: No Status: Chronic Category: Medical Code(s): D64.9 - Anemia, unspecified (4) Hx of deep venous thrombosis Current visit: No Status: Chronic Category: Medical Code(s): Z86.718 - Personal history of other venous thrombosis and embolism (5) Lung cancer metastatic to brain Current visit: No Status: Chronic Category: Medical Code(s): C34.90 - Malignant neoplasm of unspecified part of unspecified bronchus or lung; C79.31 - Secondary malignant neoplasm of brain <Анна Flores - 02/10/18 08:20> (1) Pneumonia Current visit: Yes Status: Acute Qualifiers: Pneumonia type: due to unspecified organism Laterality: left Lung location: lower lobe of lung Qualified Code(s): J18.1 - Lobar pneumonia, unspecified organism Category: Medical Code(s): J18.9 - Pneumonia, unspecified organism (2) Dehydration Current visit: Yes Status: Acute Category: Medical Code(s): E86.0 - Dehydration (3) Altered mental status Current visit: Yes Status: Acute Category: Medical Code(s): R41.82 - Altered mental status, unspecified (4) Anemia Current visit: No Status: Chronic Category: Medical Code(s): D64.9 - Anemia, unspecified (5) Hx of deep venous thrombosis Current visit: No Status: Chronic Category: Medical Code(s): Z86.718 - Personal history of other venous thrombosis and embolism (6) Lung cancer metastatic to brain Current visit: No Status: Chronic Category: Medical Code(s): C34.90 - Malignant neoplasm of unspecified part of unspecified bronchus or lung; C79.31 - Secondary malignant neoplasm of brain <Kirill Stewart - 02/10/18 13:36> - Assessment and plan all Dx Assessment and Plan for all problems:: Pt seen and examined. His responses are slow but coherent. He denies nausea or abdominal pain. Wheezes and rhonchi noted on lung exam. He has been restarted on his antibiotics and Duonebs. Continue IV fluid hydration. <Kirill Stewart - 02/10/18 13:36> Patient has been started on antibiotics and IVF's. Will also start on neb treatments. We will continue to monitor. <Анна Flores - 02/10/18 08:21>
[2018-02-10 10:02] LABS: Lymphocytes % 11 % (10-50); Monocytes % 5 % (2-9); Neutrophils % 83 % (42-76); Total Cells Counted 100
[2018-02-10 10:03] LABS: Anisocytosis 1+
[2018-02-10 10:04] LABS: Ovalocytes 1+; Tear Drop Cells 1+
[2018-02-10 10:05] LABS: Hypochromasia 1+
[2018-02-11 07:24] LABS: Anion Gap 10.9 mEq/L (5-15); Potassium 3.9 mmoL/L (3.5-5.1)
[2018-02-11 07:26] LABS: Basophils % 0.1 % (0.1-2.0); Eosinophils % 0.1 % (0.1-12.0); Hemoglobin 8.7 g/dL (14.1-18.0); Lymphocytes # 0.3 K/mm3 (0.7-4.5); Lymphocytes % 8.2 K/mm3 (10-50); Mean Corpuscular HGB Conc 33.5 g/dL (31.8-35.4); Mean Corpuscular Hemoglobin 28.9 pg (27.0-31.2); Mean Corpuscular Volume 86.3 fl (80-94); Mean Platelet Volume 7.2 fl (7.4-10.4); Monocytes # 0.1 K/mm3 (0.1-1.0); Monocytes % 2.1 % (1.7-9.3); Neutrophils # 3.7 K/mm3 (1.8-7.8); Neutrophils % 89.5 % (37.0-80.0); Platelet Count 113 K/mm3 (142-424); Red Blood Count 3.01 M/mm3 (4.60-6.20); White Blood Count 4.1 K/mm3 (4.8-10.8)
--- NOTE | 2018-02-11 08:02 | Progress Note ---
<Анна Flores - Last Filed: 02/11/18 08:00> Internal Medicine - PN: Subj *Date: 02/11/18 *Time: 08:00 Interval history: Patient is feeling slightly better this a.m. His mental status has improved. His states he coughed all night and he does not have any cough medication ordered. He was taking Phenergan with codeine at home. She would like this reordered in the hospital. He denies any pain today. He is eating his breakfast. Exam Vital signs and Labs for Last 24 Hours: Temp Pulse Resp BP Pulse Ox 97.6 F 70 18 87/49 82 L 02/11/18 04:00 02/11/18 06:27 02/11/18 04:00 02/11/18 04:00 02/11/18 06:27 Laboratory Results - last 24 hr 02/10/18 06:23: Total Counted 100, Neutrophils % (Manual) 83 H, Lymphocytes % ( Manual) 11, Atypical Lymphs % 1.0, Monocytes % (Manual) 5, Platelet Estimate Slight decrease, Hypochromasia 1+, Anisocytosis 1+, Tear Drop Cells 1+, Ovalocytes 1+ 02/11/18 06:45: WBC 4.1 L, RBC 3.01 L, Hgb 8.7 L, Hct 26.0 L, MCV 86.3, MCH 28.9 , MCHC 33.5, RDW 17.0, Plt Count 113 L, MPV 7.2 L, Neut % (Auto) 89.5 H, Lymph % (Auto) 8.2 L, [place] % (Auto) 2.1, Eos % (Auto) 0.1, Baso % (Auto) 0.1, Neut # ( Auto) 3.7, Lymph # (Auto) 0.3 L, [place] # (Auto) 0.1, Eos # (Auto) 0.0, Baso # ( Auto) 0.0 02/11/18 06:45: Sodium 135 L, Potassium 3.9, Chloride 101, Carbon Dioxide 27, Anion Gap 10.9, BUN 25 H, Creatinine 0.79, Estimated Creat Clear 103, Estimated GFR 102, Est GFR ( Amer) 124, Glucose 166 H I & O for Last 24 hours: Intake & Output 02/08/18 02/09/18 02/10/1802/11/18 11:59 11:59 11:59 11:59 Intake Total 1867 Balance 1867 Weight 150 lb 8 oz Microbiology Reports for the Last 24 Hours: Microbiology 02/09/18 22:00 Blood Blood Culture - Preliminary NO GROWTH AFTER 24 HOURS 02/09/18 22:00 Blood Blood Culture - Preliminary NO GROWTH AFTER 24 HOURS - Constitutional Comments: Looks better and more alert today - *Routine Respiratory Exam Present: rales (KAVON), wheezes (bilaterally but improved) - *Routine Cardiovascular Exam Present: RRR - *Routine Abdominal Exam Present: soft, normoactive bowel sounds. Absent: tenderness - *Routine Extremities Exam Absent: edema Assessment and Plan (1) Pneumonia Current visit: Yes Status: Acute Qualifiers: Pneumonia type: due to unspecified organism Laterality: left Lung location: lower lobe of lung Qualified Code(s): J18.1 - Lobar pneumonia, unspecified organism Category: Medical Code(s): J18.9 - Pneumonia, unspecified organism (2) Dehydration Current visit: Yes Status: Acute Category: Medical Code(s): E86.0 - Dehydration (3) Altered mental status Current visit: Yes Status: Acute Category: Medical Code(s): R41.82 - Altered mental status, unspecified (4) Anemia Current visit: No Status: Chronic Category: Medical Code(s): D64.9 - Anemia, unspecified (5) Hx of deep venous thrombosis Current visit: No Status: Chronic Category: Medical Code(s): Z86.718 - Personal history of other venous thrombosis and embolism (6) Lung cancer metastatic to brain Current visit: No Status: Chronic Category: Medical Code(s): C34.90 - Malignant neoplasm of unspecified part of unspecified bronchus or lung; C79.31 - Secondary malignant neoplasm of brain - Assessment and plan all Dx Assessment and Plan for all problems:: Hemoglobin is down to 8.7 today. Will discuss with Dr. Stewart. May need a transfusion. We will also discuss ordering Phenergan with codeine cough syrup. <Kirill Stewart - Last Filed: 02/11/18 17:05> Internal Medicine - PN: Subj *Date: 02/11/18 *Time: 17:01 Exam Vital signs and Labs for Last 24 Hours: Temp Pulse Resp BP Pulse Ox 97.8 F 72 18 110/52 98 02/11/18 16:29 02/11/18 16:29 02/11/18 16:29 02/11/18 16:29 02/11/18 16:29 Laboratory Results - last 24 hr 02/11/18 06:45: WBC 4.1 L, RBC 3.01 L, Hgb 8.7 L, Hct 26.0 L, MCV 86.3, MCH 28.9 , MCHC 33.5, RDW 17.0, Plt Count 113 L, MPV 7.2 L, Neut % (Auto) 89.5 H, Lymph % (Auto) 8.2 L, [place] % (Auto) 2.1, Eos % (Auto) 0.1, Baso % (Auto) 0.1, Neut # ( Auto) 3.7, Lymph # (Auto) 0.3 L, [place] # (Auto) 0.1, Eos # (Auto) 0.0, Baso # ( Auto) 0.0, Total Counted 100, Neutrophils % (Manual) 91 H, Lymphocytes % (Manual ) 7 L, Monocytes % (Manual) 2, Platelet Estimate Slight decrease, Poikilocytosis 1+, Tear Drop Cells 1+, Ovalocytes 1+ 02/11/18 06:45: Sodium 135 L, Potassium 3.9, Chloride 101, Carbon Dioxide 27, Anion Gap 10.9, BUN 25 H, Creatinine 0.79, Estimated Creat Clear 103, Estimated GFR 102, Est GFR ( Amer) 124, Glucose 166 H 02/11/18 07:20: HIV 1&2 Antibody Rapid Non-reactive I & O for Last 24 hours: Intake & Output 02/09/18 02/10/18 02/11/18 02/12/18 11:59 11:59 11:59 11:59 Intake Total 926 / 926 1868 / 1868 Balance 926 / 926 1868 / 1868 Weight 150 lb 8 oz 150 lb 8.012 oz Microbiology Reports for the Last 24 Hours: Microbiology 02/09/18 22:00 Blood Blood Culture - Preliminary NO GROWTH AFTER 24 HOURS 02/09/18 22:00 Blood Blood Culture - Preliminary NO GROWTH AFTER 24 HOURS Assessment and Plan (1) Pneumonia Current visit: Yes Status: Acute Qualifiers: Pneumonia type: due to unspecified organism Laterality: left Lung location: lower lobe of lung Qualified Code(s): J18.1 - Lobar pneumonia, unspecified organism Category: Medical Code(s): J18.9 - Pneumonia, unspecified organism (2) Dehydration Current visit: Yes Status: Acute Category: Medical Code(s): E86.0 - Dehydration (3) Altered mental status Current visit: Yes Status: Acute Category: Medical Code(s): R41.82 - Altered mental status, unspecified (4) Anemia Current visit: No Status: Chronic Category: Medical Code(s): D64.9 - Anemia, unspecified (5) Hx of deep venous thrombosis Current visit: No Status: Chronic Category: Medical Code(s): Z86.718 - Personal history of other venous thrombosis and embolism (6) Lung cancer metastatic to brain Current visit: No Status: Chronic Category: Medical Code(s): C34.90 - Malignant neoplasm of unspecified part of unspecified bronchus or lung; C79.31 - Secondary malignant neoplasm of brain - Assessment and plan all Dx Assessment and Plan for all problems:: Patient seen and examined today. He is hemodynamically stable. H&H likely down from hemodilution. Will repeat in AM befor deciding on transfusion
[2018-02-11 09:35] LABS: Lymphocytes % 7 % (10-50); Monocytes % 2 % (2-9); Neutrophils % 91 % (42-76); Total Cells Counted 100
[2018-02-11 09:36] LABS: Ovalocytes 1+; Tear Drop Cells 1+
[2018-02-12 06:55] LABS: Eosinophils % 0.1 % (0.1-12.0); Hematocrit 25.3 % (42.0-52.0); Hemoglobin 8.3 g/dL (14.1-18.0); Lymphocytes # 0.4 K/mm3 (0.7-4.5); Lymphocytes % 6.6 K/mm3 (10-50); Mean Corpuscular HGB Conc 32.8 g/dL (31.8-35.4); Mean Corpuscular Volume 85.5 fl (80-94); Mean Platelet Volume 7.3 fl (7.4-10.4); Monocytes # 0.2 K/mm3 (0.1-1.0); Monocytes % 3.5 % (1.7-9.3); Neutrophils # 5.7 K/mm3 (1.8-7.8); Neutrophils % 89.8 % (37.0-80.0); Platelet Count 120 K/mm3 (142-424); Red Blood Count 2.96 M/mm3 (4.60-6.20); Red Cell Distribution Width 16.9 % (11.5-17.5); White Blood Count 6.3 K/mm3 (4.8-10.8)
[2018-02-12 06:59] LABS: Anion Gap 6.7 mEq/L (5-15); Potassium 3.7 mmoL/L (3.5-5.1)
[2018-02-12 07:56] LABS: Anisocytosis 2+; Lymphocytes % 6 % (10-50); Monocytes % 5 % (2-9); Neutrophils % 89 % (42-76); Ovalocytes 1+; Tear Drop Cells 1+; Total Cells Counted 100
--- NOTE | 2018-02-12 08:25 | Progress Note ---
Internal Medicine - PN: Subj *Date: 02/12/18 *Time: 20:36 Interval history: Rested fairly well. Still with congested cough but nonproductive. Appetite better. Remains weak Exam Vital signs and Labs for Last 24 Hours: Temp Pulse Resp BP Pulse Ox 98.0 F 65 20 117/31 97 02/12/18 07:29 02/12/18 07:29 02/12/18 07:29 02/12/18 07:29 02/12/18 07:29 Laboratory Results - last 24 hr 02/11/18 06:45: Total Counted 100, Neutrophils % (Manual) 91 H, Lymphocytes % ( Manual) 7 L, Monocytes % (Manual) 2, Platelet Estimate Slight decrease, Poikilocytosis 1+, Tear Drop Cells 1+, Ovalocytes 1+ 02/12/18 06:27: WBC 6.3 D, RBC 2.96 L, Hgb 8.3 L, Hct 25.3 L, MCV 85.5, MCH 28.0, MCHC 32.8, RDW 16.9, Plt Count 120 L, MPV 7.3 L, Neut % (Auto) 89.8 H, Lymph % (Auto) 6.6 L, [place] % (Auto) 3.5, Eos % (Auto) 0.1, Baso % (Auto) 0.0 L, Neut # (Auto) 5.7, Lymph # (Auto) 0.4 L, [place] # (Auto) 0.2, Eos # (Auto) 0.0, Baso # (Auto) 0.0, Total Counted 100, Neutrophils % (Manual) 89 H, Lymphocytes % (Manual) 6 L, Monocytes % (Manual) 5, Platelet Estimate Slight decrease, Poikilocytosis 2+, Anisocytosis 2+, Tear Drop Cells 1+, Ovalocytes 1+ 02/12/18 06:27: Sodium 134 L, Potassium 3.7, Chloride 105, Carbon Dioxide 26, Anion Gap 6.7, BUN 20 H, Creatinine 0.70, Estimated Creat Clear 116, Estimated GFR 118, Est GFR ( Amer) 142, Glucose 111 H D I & O for Last 24 hours: Intake & Output 02/09/18 02/10/18 02/11/18 02/12/18 11:59 11:59 11:59 11:59 Intake Total 926 / 926 1868 / 1868 3764 / 3764 Output Total 300 / 300 Balance 1867 3464 / 3464 Weight 150 lb 8 oz 150 lb 8.012 oz Microbiology Reports for the Last 24 Hours: Microbiology 02/09/18 22:00 Blood Blood Culture - Preliminary NO GROWTH AFTER 48 HOURS 02/09/18 22:00 Blood Blood Culture - Preliminary NO GROWTH AFTER 48 HOURS - Constitutional Comments: sitting up in bed eating breakfast. NAD. PATIENT SERVICE ASSOCIATE cough - *Routine HEENT Exam Comments: voice is hoarse - *Routine Respiratory Exam Comments: coarse BS with rhonchi, no wheezes - *Routine Cardiovascular Exam Present: RRR Assessment and Plan (1) Pneumonia Current visit: Yes Status: Acute Qualifiers: Pneumonia type: due to unspecified organism Laterality: left Lung location: lower lobe of lung Qualified Code(s): J18.1 - Lobar pneumonia, unspecified organism Category: Medical Code(s): J18.9 - Pneumonia, unspecified organism (2) Dehydration Current visit: Yes Status: Acute Category: Medical Code(s): E86.0 - Dehydration (3) Altered mental status Current visit: Yes Status: Acute Category: Medical Code(s): R41.82 - Altered mental status, unspecified (4) Anemia Current visit: No Status: Chronic Category: Medical Code(s): D64.9 - Anemia, unspecified (5) Hx of deep venous thrombosis Current visit: No Status: Chronic Category: Medical Code(s): Z86.718 - Personal history of other venous thrombosis and embolism (6) Lung cancer metastatic to brain Current visit: No Status: Chronic Category: Medical Code(s): C34.90 - Malignant neoplasm of unspecified part of unspecified bronchus or lung; C79.31 - Secondary malignant neoplasm of brain - Assessment and plan all Dx Assessment and Plan for all problems:: H&H has decreased further. Will transfuse 2 units today. Encourage OOB
[2018-02-12 09:41] LABS: INR 1.39 (0.9-1.1); Prothrombin Time 15.1 seconds (9.4-11.8)
[2018-02-12 18:15] LABS: Hematocrit 32.9 % (42.0-52.0)
[2018-02-12 18:18] LABS: Hemoglobin 11.1 g/dL (14.1-18.0)
--- NOTE | 2018-02-13 08:16 | Progress Note ---
Internal Medicine - PN: Subj *Date: 02/13/18 *Time: 09:21 Interval history: No new complaints. Tolerated blood transfusion. Was able to ambulate in chan some yesterday. Exam Vital signs and Labs for Last 24 Hours: Temp Pulse Resp BP Pulse Ox 98.3 F 62 18 125/60 95 02/13/18 07:28 02/13/18 07:28 02/13/18 07:28 02/13/18 07:28 02/13/18 07:28 Laboratory Results - last 24 hr 02/11/18 07:20: Hep Bs Antigen Negative 02/11/18 07:20: Hep B Core IgM Ab Negative 02/11/18 07:20: Hepatitis C Antibody <0.1 02/11/18 07:20: HIV 1&2 Ag/Ab, 4th Gen Non reactive 02/12/18 09:20: Blood Type O Positive, Antibody Screen Negative, Crossmatch (AHG ) See Detail 02/12/18 09:20: PT 15.1 H, INR 1.39 H 02/12/18 18:05: Hgb 11.1 L D, Hct 32.9 L I & O for Last 24 hours: Intake & Output 02/10/18 02/11/18 02/12/18 02/13/18 11:59 11:59 11:59 11:59 Intake Total 926 / 926 1868 / 1868 3764 / 3764 2356 / 2356 Output Total 750 / 750 500 / 500 Balance 926 / 926 1868 / 1868 3014 / 3014 1856 / 1856 Weight 150 lb 8 oz 150 lb 8.012 oz Microbiology Reports for the Last 24 Hours: Microbiology 02/12/18 08:08 Sputum - Expectorated Sputum Gram Stain - Final 02/12/18 08:08 Sputum - Expectorated Sputum Sputum Culture - Preliminary 02/09/18 22:00 Blood Blood Culture - Preliminary NO GROWTH AFTER 72 HOURS 02/09/18 22:00 Blood Blood Culture - Preliminary NO GROWTH AFTER 72 HOURS - Constitutional no acute distress Comments: color better - *Routine HEENT Exam Comments: hoarse - *Routine Respiratory Exam Comments: coarse rhonchi - *Routine Cardiovascular Exam Present: RRR Assessment and Plan (1) Pneumonia Current visit: Yes Status: Acute Qualifiers: Pneumonia type: due to unspecified organism Laterality: left Lung location: lower lobe of lung Qualified Code(s): J18.1 - Lobar pneumonia, unspecified organism Category: Medical Code(s): J18.9 - Pneumonia, unspecified organism (2) Dehydration Current visit: Yes Status: Acute Category: Medical Code(s): E86.0 - Dehydration (3) Altered mental status Current visit: Yes Status: Acute Category: Medical Code(s): R41.82 - Altered mental status, unspecified (4) Anemia Current visit: No Status: Chronic Category: Medical Code(s): D64.9 - Anemia, unspecified (5) Hx of deep venous thrombosis Current visit: No Status: Chronic Category: Medical Code(s): Z86.718 - Personal history of other venous thrombosis and embolism (6) Lung cancer metastatic to brain Current visit: No Status: Chronic Category: Medical Code(s): C34.90 - Malignant neoplasm of unspecified part of unspecified bronchus or lung; C79.31 - Secondary malignant neoplasm of brain - Assessment and plan all Dx Assessment and Plan for all problems:: Continue per orders. Possible discharge home tomorrow
--- NOTE | 2018-02-13 10:09 | Progress Note ---
Internal Medicine - PN: Subj *Date: 02/13/18 *Time: 10:09 Exam Vital signs and Labs for Last 24 Hours: Temp Pulse Resp BP Pulse Ox 98.3 F 62 18 125/60 95 02/13/18 07:28 02/13/18 09:00 02/13/18 07:28 02/13/18 07:28 02/13/18 09:00 Laboratory Results - last 24 hr 02/11/18 07:20: Hep Bs Antigen Negative 02/11/18 07:20: Hep B Core IgM Ab Negative 02/11/18 07:20: Hepatitis C Antibody <0.1 02/11/18 07:20: HIV 1&2 Ag/Ab, 4th Gen Non reactive 02/12/18 09:20: Blood Type O Positive, Antibody Screen Negative, Crossmatch (AHG ) See Detail 02/12/18 18:05: Hgb 11.1 L D, Hct 32.9 L I & O for Last 24 hours: Intake & Output 02/10/18 02/11/18 02/12/18 02/13/18 23:59 23:59 23:59 23:59 Intake Total 546 / 546 3531 / 3531 2341 / 2341 1995 Output Total 1050 / 1050 200 / 200 Balance 546 / 546 3531 / 3531 1291 / 1291 1796 / 1796 Weight 68.266 kg 68.266 kg Microbiology Reports for the Last 24 Hours: Microbiology 02/12/18 08:08 Sputum - Expectorated Sputum Gram Stain - Final 02/12/18 08:08 Sputum - Expectorated Sputum Sputum Culture - Preliminary 02/09/18 22:00 Blood Blood Culture - Preliminary NO GROWTH AFTER 72 HOURS 02/09/18 22:00 Blood Blood Culture - Preliminary NO GROWTH AFTER 72 HOURS Assessment and Plan (1) Pneumonia Current visit: Yes Status: Acute Qualifiers: Pneumonia type: due to unspecified organism Laterality: left Lung location: lower lobe of lung Qualified Code(s): J18.1 - Lobar pneumonia, unspecified organism Category: Medical Code(s): J18.9 - Pneumonia, unspecified organism (2) Dehydration Current visit: Yes Status: Acute Category: Medical Code(s): E86.0 - Dehydration (3) Altered mental status Current visit: Yes Status: Acute Category: Medical Code(s): R41.82 - Altered mental status, unspecified (4) Anemia Current visit: No Status: Chronic Category: Medical Code(s): D64.9 - Anemia, unspecified (5) Hx of deep venous thrombosis Current visit: No Status: Chronic Category: Medical Code(s): Z86.718 - Personal history of other venous thrombosis and embolism (6) Lung cancer metastatic to brain Current visit: No Status: Chronic Category: Medical Code(s): C34.90 - Malignant neoplasm of unspecified part of unspecified bronchus or lung; C79.31 - Secondary malignant neoplasm of brain The patient's infection will respond to the chosen ABx?: Yes Is the patient receiving the right drug, dose, and route?: Yes Could a more targeted ABx be ordered?: No
[2018-02-14 06:42] LABS: INR 2.72 (0.9-1.1); Prothrombin Time 29.7 seconds (9.4-11.8)
--- NOTE | 2018-02-14 08:59 | Progress Note ---
<Dipti Pino - Last Filed: 02/14/18 08:57> Internal Medicine - PN: Subj *Date: 02/14/18 *Time: 08:57 Interval history: Patient states breathing is about the same. He feels it is slowly improving. He has congestive cough. He is eating without difficulty. He denies nausea and vomiting. He denies any pain at present. He is voiding without difficulty. Exam Vital signs and Labs for Last 24 Hours: Temp Pulse Resp BP Pulse Ox 98.0 F 71 16 126/59 97 02/14/18 07:45 02/14/18 07:45 02/14/18 07:45 02/14/18 07:45 02/14/18 07:45 Laboratory Results - last 24 hr 02/14/18 06:05: PT 29.7 H, INR 2.72 H I & O for Last 24 hours: Intake & Output 02/11/18 02/12/18 02/13/18 02/14/18 11:59 11:59 11:59 11:59 Intake Total 1868 / 1868 3764 / 3764 2356 / 2356 1255 / 1255 Output Total 750 / 750 500 / 500 2650 / 2650 Balance 1868 / 1868 3014 / 3014 1856 / 1856 -1395 / -1395 Weight 150 lb 8.012 oz Microbiology Reports for the Last 24 Hours: Microbiology 02/12/18 08:08 Sputum - Expectorated Sputum Gram Stain - Final 02/12/18 08:08 Sputum - Expectorated Sputum Sputum Culture - Preliminary 02/09/18 22:00 Blood Blood Culture - Preliminary NO GROWTH AFTER 4 DAYS 02/09/18 22:00 Blood Blood Culture - Preliminary NO GROWTH AFTER 4 DAYS - Constitutional no acute distress - *Routine Respiratory Exam Comments: Bilateral inspiratory and expiratory wheezing. Right basilar crackles. - *Routine Cardiovascular Exam Present: RRR - *Routine Abdominal Exam Present: soft, normoactive bowel sounds. Absent: tenderness - *Routine Extremities Exam Present: pulses intact. Absent: edema, calf tenderness - *Routine Neurological Exam Present: alert, oriented X3 Assessment and Plan (1) Pneumonia Current visit: Yes Status: Acute Qualifiers: Pneumonia type: due to unspecified organism Laterality: left Lung location: lower lobe of lung Qualified Code(s): J18.1 - Lobar pneumonia, unspecified organism Category: Medical Code(s): J18.9 - Pneumonia, unspecified organism (2) Dehydration Current visit: Yes Status: Acute Category: Medical Code(s): E86.0 - Dehydration (3) Altered mental status Current visit: Yes Status: Acute Category: Medical Code(s): R41.82 - Altered mental status, unspecified (4) Anemia Current visit: No Status: Chronic Category: Medical Code(s): D64.9 - Anemia, unspecified (5) Hx of deep venous thrombosis Current visit: No Status: Chronic Category: Medical Code(s): Z86.718 - Personal history of other venous thrombosis and embolism (6) Lung cancer metastatic to brain Current visit: No Status: Chronic Category: Medical Code(s): C34.90 - Malignant neoplasm of unspecified part of unspecified bronchus or lung; C79.31 - Secondary malignant neoplasm of brain - Assessment and plan all Dx Assessment and Plan for all problems:: Continue current care. Probably home later today. <Kirill Stewart - Last Filed: 02/14/18 18:54> Internal Medicine - PN: Subj *Date: 02/14/18 *Time: 18:52 Exam Vital signs and Labs for Last 24 Hours: Temp Pulse Resp BP Pulse Ox 98.0 F 70 18 108/62 95 02/14/18 15:27 02/14/18 16:41 02/14/18 15:27 02/14/18 15:27 02/14/18 15:27 Laboratory Results - last 24 hr 02/14/18 06:05: PT 29.7 H, INR 2.72 H I & O for Last 24 hours: Intake & Output 02/12/18 02/13/18 02/14/18 02/15/18 11:59 11:59 11:59 11:59 Intake Total 3764 / 3764 2356 / 2356 1855 / 1855 Output Total 750 / 750 500 / 500 2650 / 2650 600 / 600 Balance 3014 / 3014 1856 / 1856 -795 / -795 -600 / -600 Microbiology Reports for the Last 24 Hours: Microbiology 02/12/18 08:08 Sputum - Expectorated Sputum Gram Stain - Final 02/12/18 08:08 Sputum - Expectorated Sputum Sputum Culture - Preliminary 02/09/18 22:00 Blood Blood Culture - Preliminary NO GROWTH AFTER 4 DAYS 02/09/18 22:00 Blood Blood Culture - Preliminary NO GROWTH AFTER 4 DAYS Assessment and Plan (1) Pneumonia Current visit: Yes Status: Acute Qualifiers: Pneumonia type: due to unspecified organism Laterality: left Lung location: lower lobe of lung Qualified Code(s): J18.1 - Lobar pneumonia, unspecified organism Category: Medical Code(s): J18.9 - Pneumonia, unspecified organism (2) Dehydration Current visit: Yes Status: Acute Category: Medical Code(s): E86.0 - Dehydration (3) Altered mental status Current visit: Yes Status: Acute Category: Medical Code(s): R41.82 - Altered mental status, unspecified (4) Anemia Current visit: No Status: Chronic Category: Medical Code(s): D64.9 - Anemia, unspecified (5) Hx of deep venous thrombosis Current visit: No Status: Chronic Category: Medical Code(s): Z86.718 - Personal history of other venous thrombosis and embolism (6) Lung cancer metastatic to brain Current visit: No Status: Chronic Category: Medical Code(s): C34.90 - Malignant neoplasm of unspecified part of unspecified bronchus or lung; C79.31 - Secondary malignant neoplasm of brain - Assessment and plan all Dx Assessment and Plan for all problems:: Patient seen and examined. He is clinically improved and ready for discharge but he seems anxious and reluctant about going home.
[2018-02-14 15:28] VITALS: BP 108/62
--- NOTE | 2018-02-15 10:48 | Discharge Summary ---
General - General Admission date:: 02/09/18 Discharge date: 02/14/18 HPI HPI: Mr. Garcia is a 51-year-old white male with a history of lung cancer with metastases to the brain that just finished a repeat course of 10 radiation treatments 2 weeks ago. He was just discharged home from [facility] on Wednesday after a stay for pneumonia and dehydration. His states he has been feeling poorly since discharge. He has not been eating and drinking well and has had a horrible cough. His states he began getting confused and sleeping all the time at home. She was worried he was dehydrated and needed IVF's so they came back to the ER and he was admitted for further evaluation and treatment. Hospital Course Hospital Course: The patient's CXR showed no change in his LLL pneumonia. He was restarted on abx and duonebs as well as IVF's. He improved slowly throughout his stay. His H&H dropped and he had to be transfused with 2 units of PRBC's. After this, he felt better and was able to ambulate in the hallway. He began eating and drinking and was stable to be discharged home on 02/14/18. Objective Vital signs: Temp Pulse Resp BP Pulse Ox 98.0 F 70 18 108/62 95 02/14/18 15:27 02/14/18 16:41 02/14/18 15:27 02/14/18 15:27 02/14/18 15:27 Narrative: - Constitutional Comments: Does not appear to feel well, coughing - *Routine HEENT Exam Head: Absent: normocephalic (scars present from brain surgery) Eye: Present: EOMI, PERRL ENT: Present: mucous membranes dry - *Routine Neck Exam Present: supple, full ROM - *Routine Respiratory Exam Present: wheezes (bilaterally). Absent: crackles - *Routine Cardiovascular Exam Present: RRR - *Routine Abdominal Exam Present: soft, normoactive bowel sounds. Absent: tenderness - *Routine Extremities Exam Absent: edema - *Routine Skin Exam Present: intact, pallor - *Routine Neurological Exam confused, answers some questions but stares straight ahead most of the time DS: Diagnosis - Discharge Diagnosis (1) Pneumonia Status: Acute (2) Dehydration Status: Acute (3) Altered mental status Status: Acute (4) Anemia Status: Chronic (5) Hx of deep venous thrombosis Status: Chronic (6) Lung cancer metastatic to brain Status: Chronic Discharge Plan - Patient Discharge Instructions ACTIVITY: Continue current activity DIET: continue same diet Patient Instructions: Anemia, DI for Dehydration -- Adult, DI for Pneumonia -- Adult, Coumadin Vitamin K/ Diet, Coumadin Therapy Booklet - Follow up Plan Follow up with: Kirill Stewart MD [Primary Care Provider] - 02/18/18 Disposition: Home, Self-[facility] Medications: Home Medications Medication Instructions Recorded Confirmed Type Folic Acid [Folic Acid 1mg tablet] 1 mg PO DAILY 11/14/17 02/09/18 History Magnesium Oxide [Magox 400] 400 mg PO BID 11/14/17 02/09/18 History Ondansetron HCl [Ondansetron 8mg 8 mg PO Q8HP PRN 11/14/17 02/09/18 History Tab] Pantoprazole Sodium [Protonix 40mg 40 mg PO DAILY 11/14/17 02/09/18 History tablet] Potassium Chloride [Klor-con 20 20 meq PO DAILY 11/14/17 02/09/18 History mEq tablet] Baclofen [Lioresal 10mg tablet] 10 mg PO HS 02/01/18 02/09/18 History Dexamethasone 10 mg PO TID 02/01/18 02/09/18 History Temazepam [Restoril 15mg capsule] 15 mg PO HS 02/01/18 02/09/18 History Cefdinir [Omnicef 300mg Capsule] 300 mg PO BID 02/09/18 02/09/18 History Promethazine HCl/Codeine 5 - 10 ml PO Q6HP PRN 02/09/18 02/10/18 History [Prometh-Codein 6.25-10 mg/5 ml] Prescriptions/Medication Reconciliation: New Warfarin Sodium [Coumadin 5mg tablet] 2.5 mg PO DAILY #30 tablet Continue Potassium Chloride [Klor-con 20 mEq tablet] 20 meq PO DAILY Magnesium Oxide [Magox 400] 400 mg PO BID Folic Acid [Folic Acid 1mg tablet] 1 mg PO DAILY Baclofen [Lioresal 10mg tablet] 10 mg PO HS Dexamethasone 10 mg PO TID Temazepam [Restoril 15mg capsule] 15 mg PO HS Cefdinir [Omnicef 300mg Capsule] 300 mg PO BID Pantoprazole Sodium [Protonix 40mg tablet] 40 mg PO DAILY Ondansetron HCl [Ondansetron 8mg Tab] 8 mg PO Q8HP PRN PRN Reason: Nausea And Vomiting Promethazine HCl/Codeine [Prometh-Codein 6.25-10 mg/5 ml] 5 - 10 ml PO Q6HP PRN PRN Reason: Cough
== END 2018-02-14 19:59 | disposition home or self-care (01) ==
LOC: ER 21:39 → 2ND 21:39 → INTOOBSV 23:45 → OBSVTOIN 23:45 → 2ND 23:48
PROVIDERS: ADMIT Family Medicine; ATTEND Family Medicine
CPT/HCPCS: 36415; 71010; 71045; 80048; 80053; 83605; 83735; 85007; 85014; 85018; 85025; 85610; 86703; 86704; 86850; 87040; 87070; 87205; 87340; 87380; 94640; 94761; 96365; 96367; 96375; 99284; G0378; G0432; J2405; P9016

== ENCOUNTER 2018-02-22 15:10 | Outpatient (CLI) | payer OTHER, MEDICARE, SELFPAY ==
[2018-02-22 15:00] VITALS: BP 118/70; PULSE 66; RESP 20; TEMP 36.9; O2SAT 96
[2018-02-22 15:22] VITALS: BMI 20.6
[2018-02-22 15:41] LABS: Eosinophils % 0.2 % (0.1-12.0); Hematocrit 32.5 % (42.0-52.0); Hemoglobin 10.9 g/dL (14.1-18.0); Lymphocytes # 0.5 K/mm3 (0.7-4.5); Lymphocytes % 3.7 K/mm3 (10-50); Mean Corpuscular HGB Conc 33.6 g/dL (31.8-35.4); Mean Corpuscular Hemoglobin 28.6 pg (27.0-31.2); Mean Corpuscular Volume 85.1 fl (80-94); Mean Platelet Volume 7.5 fl (7.4-10.4); Monocytes # 0.3 K/mm3 (0.1-1.0); Monocytes % 2.3 % (1.7-9.3); Neutrophils # 12.5 K/mm3 (1.8-7.8); Neutrophils % 93.7 % (37.0-80.0); Platelet Count 156 K/mm3 (142-424); Red Blood Count 3.82 M/mm3 (4.60-6.20); Red Cell Distribution Width 16.5 % (11.5-17.5); White Blood Count 13.3 K/mm3 (4.8-10.8)
[2018-02-22 15:43] LABS: MANUAL DIFFERENTIAL MANUAL DIFFERENTIAL (MANUAL DIFF)
[2018-02-22 15:49] LABS: Prothrombin Time 81.8 seconds (9.4-11.8)
[2018-02-22 15:50] LABS: INR 7.42 (0.9-1.1)
[2018-02-22 15:51] LABS: Alanine Aminotransferase 12 U/L (12-78); Albumin Level 2.6 gm/dL (3.4-5.0); Albumin/Globulin Ratio 0.8 (1.1-1.8); Alkaline Phosphatase 277 U/L (46-116); Anion Gap 14.2 mEq/L (5-15); Aspartate Amino Transferase 36 U/L (15-37); Bilirubin,Total 0.4 mg/dL (0.2-1.0); Blood Urea Nitrogen 30 mg/dL (7-18); Calcium 9.2 mg/dL (8.5-10.1); Carbon Dioxide 27 mmol/L (21.0-32.0); Chloride 102 mmol/L (98-107); Creatinine Clearance Estimated 79 mL/min (0-300); Creatinine,Serum 1.04 mg/dL (0.70-1.30); Estimated Glomerular Filt Rate 74 ml/min (>60); GFR (African American) 90 ML/MIN (>60); Globulin 3.4 gm/dl (1.3-3.2); Glucose 129 mg/dL (74-106); Potassium 4.2 mmoL/L (3.5-5.1); Sodium 139 mmol/L (136-145)
[2018-02-22 16:12] LABS: Lymphocytes % 6 % (10-50); Monocytes % 1 % (2-9); Neutrophils % 90 % (42-76); Total Cells Counted 100
[2018-02-22 16:13] LABS: Platelet Estimate Normal; Poikilocytosis 1+
[2018-02-22 16:40] VITALS: BP 118/70; PULSE 66; RESP 20; TEMP 36.9; O2SAT 96
== END 2018-02-22 15:30 | disposition home or self-care (01) ==
LOC: INF 15:26
PROVIDERS: PCP Family Medicine; Visit Provider Internal Medicine Hematology & Oncology
DX: C34.82 Malignant neoplasm of overlapping sites of left bronchus and lung (principal); Z51.81 Encounter for therapeutic drug level monitoring
CPT/HCPCS: 80053; 85007; 85025; 85610; J1642

== ENCOUNTER 2018-02-28 11:10 | Outpatient (CLI) | payer OTHER, MEDICARE, SELFPAY ==
[2018-02-28 11:10] VITALS: BP 127/51; PULSE 68; RESP 20; TEMP 36.9; O2SAT 96
[2018-02-28 11:37] VITALS: BMI 23.0
[2018-02-28 11:40] VITALS: BP 126/74; PULSE 68; RESP 20; TEMP 36.9; O2SAT 96
[2018-02-28 12:01] LABS: Basophils % 0.2 % (0.1-2.0); Eosinophils % 0.4 % (0.1-12.0); Hematocrit 31.8 % (42.0-52.0); Hemoglobin 10.7 g/dL (14.1-18.0); Lymphocytes % 16.8 K/mm3 (10-50); Mean Corpuscular HGB Conc 33.8 g/dL (31.8-35.4); Mean Corpuscular Hemoglobin 28.1 pg (27.0-31.2); Mean Corpuscular Volume 83.3 fl (80-94); Mean Platelet Volume 7.3 fl (7.4-10.4); Monocytes # 0.5 K/mm3 (0.1-1.0); Monocytes % 8.9 % (1.7-9.3); Neutrophils # 4.4 K/mm3 (1.8-7.8); Neutrophils % 73.7 % (37.0-80.0); Platelet Count 176 K/mm3 (142-424); Red Blood Count 3.82 M/mm3 (4.60-6.20); Red Cell Distribution Width 16.5 % (11.5-17.5); White Blood Count 5.9 K/mm3 (4.8-10.8)
[2018-02-28 12:06] LABS: INR 1.16 (0.9-1.1); Prothrombin Time 12.6 seconds (9.4-11.8)
[2018-02-28 12:13] LABS: Alanine Aminotransferase 12 U/L (12-78); Albumin Level 2.3 gm/dL (3.4-5.0); Albumin/Globulin Ratio 0.6 (1.1-1.8); Alkaline Phosphatase 330 U/L (46-116); Anion Gap 13.6 mEq/L (5-15); Aspartate Amino Transferase 49 U/L (15-37); Bilirubin,Total 0.7 mg/dL (0.2-1.0); Blood Urea Nitrogen 20 mg/dL (7-18); Calcium 9.1 mg/dL (8.5-10.1); Carbon Dioxide 30 mmol/L (21.0-32.0); Chloride 99 mmol/L (98-107); Creatinine Clearance Estimated 112 mL/min (0-300); Creatinine,Serum 0.82 mg/dL (0.70-1.30); Estimated Glomerular Filt Rate 98 ml/min (>60); GFR (African American) 118 ML/MIN (>60); Globulin 3.8 gm/dl (1.3-3.2); Glucose 109 mg/dL (74-106); Potassium 3.6 mmoL/L (3.5-5.1); Sodium 139 mmol/L (136-145); Total Protein,Serum 6.1 gm/dL (6.4-8.2)
[2018-02-28 13:24] VITALS: BP 128/68; PULSE 68; RESP 20; TEMP 36.9; O2SAT 96
== END 2018-02-28 12:20 | disposition home or self-care (01) ==
LOC: INF 11:58
PROVIDERS: PCP Family Medicine; Visit Provider Internal Medicine Hematology & Oncology
DX: C34.82 Malignant neoplasm of overlapping sites of left bronchus and lung (principal); Z79.01 Long term (current) use of anticoagulants; Z51.81 Encounter for therapeutic drug level monitoring
CPT/HCPCS: 80053; 85025; 85610; 96360; J1642

== ENCOUNTER 2018-03-18 18:24 | Inpatient (IN) ==
--- NOTE | 2018-03-18 18:51 | Emergency Department Note ---
ED Disposition Clinical Impression: Healthcare-associated pneumonia, Acute respiratory failure with hypoxia Metastatic lung cancer (metastasis from lung to other site) Qualifiers: Laterality: left Qualified Code(s): C34.92 - Malignant neoplasm of unspecified part of left bronchus or lung Disposition: Still a Patient Condition on Discharge: Serious Referrals: Kirill Stewart MD [Primary Care Provider] - - Critical Care Critical Care Time: Yes Attestation: On 03/18/18, the high probability of a clinically significant, sudden or life threatening deterioration of the following system(s) required my full and direct attention, intervention and personal management. The time I documented below is in addition to time spent performing reported procedures but includes the following listed in this critical care notation. Total Critical Care Time: 40 Vital system(s) involved:: Respiratory Failure My critical care processes included: Assessment & monitoring of V/S, Initial and Re-exams, Data Review/Interpretation, Coordinating Care, Medication Orders and management, Documentation Medical Decision Making - Carlos Inquiry Pt receiving controlled substance: No Vital Signs: 03/18/18 18:27 03/18/18 18:57 Temperature 98.4 F Temperature Source Axillary Pulse Rate [Right Radial] 125 H 126 H Respiratory Rate 30 H 18 Blood Pressure [Right Arm] 124/71 127/65 Blood Pressure Mean [Right Arm] 88 85 Blood Pressure Source [Right Arm] Automatic Cuff Blood Pressure Position [Right Arm] Supine 02 Sat by Pulse Oximetry 99 100 Oxygen Delivery Method Non-Rebreather Oxygen Flow Rate (LPM) 10 - Lab Data Lab Results 03/18/18 18:56: WBC 24.6 H*, RBC 4.12 L, Hgb 10.9 L, Hct 35.5 L, MCV 86.2, MCH 26.6 L, MCHC 30.8 L, RDW 17.2, Plt Count 204, MPV 7.3 L, Neut % (Auto) 90.4 H, Lymph % (Auto) 6.2 L, [place] % (Auto) 2.7, Eos % (Auto) 0.5, Baso % (Auto) 0.2, Neut # (Auto) 22.3 H, Lymph # (Auto) 1.5, [place] # (Auto) 0.7, Eos # (Auto) 0.1, Baso # (Auto) 0.1, Total Counted 100, Neutrophils % (Manual) 87 H, Band Neutrophils % 3.0, Lymphocytes % (Manual) 6 L, Atypical Lymphs % 2.0, Monocytes % (Manual) 2, Platelet Estimate Normal, RBC Morphology Not Reportable 03/18/18 18:56: Sodium 137, Potassium 3.8, Chloride 99, Carbon Dioxide 23, Anion Gap 18.8 H, BUN 44 H, Creatinine 1.32 H, Estimated Creat Clear 60, Estimated GFR 57 L, Est GFR ( Amer) 68, Glucose 226 H, Calcium 9.7, Total Bilirubin 0.9, AST 61 H, ALT 26, Alkaline Phosphatase 281 H, Troponin I 0.03, Total Protein 6.0 L, Albumin 2.6 L, Globulin 3.4 H, Albumin/Globulin Ratio 0.8 L 03/18/18 18:56: Lactic Acid 7.5 H 03/18/18 18:56: B-Natriuretic Peptide 65 03/18/18 19:07: O2 % 8 lpm 52% via neb, ABG pH 7.44, ABG pCO2 32.0 L, ABG pO2 109.6 H, ABG HCO3 21.3 L, ABG Total CO2 22.3 L, ABG O2 Saturation 97, ABG Base Excess -2.8 L, Rene Test Acceptable Result diagrams: 03/18/18 18:56 03/18/18 18:56 Orders (Tests/Meds): ED MEDICATIONS Generic Name Dose Route Start Last Admin Trade Name Freq PRN Reason Stop Dose Admin Levofloxacin/Dextrose 750 mg in 150 mls @ 100 mls/hr 03/18/18 20:15 Levofloxacin 750mg/150ml Premix IV 04/01/18 20:14 Q24H RICARDO Protocol Cefepime HCl 2 gm/ Sodium 100 mls @ 200 mls/hr 03/18/18 20:15 03/18/18 20:30 Chloride IV 04/01/18 20:14 200 mls/hr Q12H RICARDO Administration Protocol Discontinued Medications Generic Name Dose Route Start Last Admin Trade Name Freq PRN Reason Stop Dose Admin Vancomycin HCl 1,250 mg/ 250 mls @ 125 mls/hr 03/18/18 20:20 Sodium Chloride IV 03/18/18 20:21 ONCE ONE Protocol Miscellaneous 1 each 03/18/18 20:11 Vancomycin Consult Request NOTAPPLIC 03/18/18 20:12 CONSULT PHARMACY ONE ORDERS Category Date Time Status XR chest portable Stat Exams 03/18/18 18:38 Taken Blood Culture Stat Micro 03/18/18 18:56 Received - Radiology Data #1 Image(s): Chest Image Reviewed: Yes I reviewed the patient's radiology image Left lower lobe infiltrate, persistent, also seen on most recent chest x-ray . Dates back to December 24, 2017. - ECG Data Tracing #1 EKG interpreted by Ramez Palacio MD: Rhythm: sinus tachycardia Rate: 130 [place]: normal Ectopy: Occasional unifocal PVCs Conduction: normal ST Segment Changes: none T Wave Changes: none Q Waves: none No evidence of acute ischemia or injury - Physician Consults Physician Consulted: Moy Stewart Time: 20:44 Reason -: Admission Comment/Response: Treat for healthcare associated pneumonia. Discussed CT angiogram of chest, he prefers to defer at this time as findings are all consistent with pneumonia. General Adult HPI - General Chief complaint: Shortness of Breath/Dyspnea Stated complaint: SOA Time Seen by Provider: 03/18/18 18:50 Mode of Arrival: EMS Limitations: Physical Limitations Description of Symptoms (Recalled from ER Triage Doc. by RN): PT WITH BRAIN CANCER. WAS IN BATHROOM TODAY AND FELT SOA AND FELT LIKE HE WAS GOING TO PASS OUT. FAMILY STATES PTS EYES ROLLED IN THE BACK OF HIS HEAD AND LIPS TURNED BLUE. - History of Present Illness HPI narrative: Brought in by ambulance for shortness of air and weakness. The patient has recurrent lung cancer with bone and brain metastasis. Currently treatment has been stopped and he is in hospice. However, family states that he has no advanced directives. His states that he has said that he would want to be brought back as long as he would not be brain . He has had cough and rattling in the chest for the past 4-5 days. Saw his primary care provider couple of days ago and was prescribed antibiotics. Blood work done and had a very elevated white blood cell count. Family also notes that he is on steroids. No chest x-ray done at that time. Family states that he is not eating well and therefore they cannot get him to take his antibiotics because he only takes them crushed with food. Today he was in the bathroom when he suddenly became very short of breath and weak. They laid him down in a chair and his eyes rolled back in his head and he was pale with blue lips. He was already on oxygen 2 L at the time, which she uses as needed. Family called hospice and they advised increase his oxygen to 3 L. However, the family then decided to call 911 to have him brought in. Patient is not able to answer any questions himself. The patient had been on Coumadin for prior history of DVTs. He was in [place] a couple of weeks ago and had a fall with a small brain bleed. He did not have surgery, but was kept for observation and Coumadin was stopped at that time. - Related Data Home Medications Medication Instructions Recorded Confirmed Folic Acid [Folic Acid 1mg tablet] 1 mg PO DAILY 11/14/17 02/28/18 Magnesium Oxide [Magox 400] 400 mg PO BID 11/14/17 02/28/18 Ondansetron HCl [Ondansetron 8mg 8 mg PO Q8HP PRN 11/14/17 02/28/18 Tab] Pantoprazole Sodium [Protonix 40mg 40 mg PO DAILY 11/14/17 02/28/18 tablet] Potassium Chloride [Klor-con 20 20 meq PO DAILY 11/14/17 02/28/18 mEq tablet] Baclofen [Lioresal 10mg tablet] 10 mg PO HS 02/01/18 02/09/18 Dexamethasone 10 mg PO TID 02/01/18 02/09/18 Temazepam [Restoril 15mg capsule] 15 mg PO HS 02/01/18 02/28/18 Cefdinir [Omnicef 300mg Capsule] 300 mg PO BID 02/09/18 02/09/18 Promethazine HCl/Codeine 5 - 10 ml PO Q6HP PRN 02/09/18 02/28/18 [Prometh-Codein 6.25-10 mg/5 ml] Warfarin Sodium [Coumadin 5mg 2.5 mg PO DAILY 02/28/18 02/28/18 tablet] Allergies Allergy/AdvReac Type Severity Reaction Status Date / Time No Known Allergies Allergy Verified 03/18/18 18:37 [facility] History I have reviewed the patient's past medical history: Yes Medical History: Reports:: Cancer (lung with mets), Deep Vein Thrombosis, Hypertension, Kidney Stones Denies:: Diabetes Mellitus Type 1, Diabetes Mellitus Type 2, MRSA Other Medical History: Reports: Chemotherapy, Radiation Therapy Laterality Cases: Right: Arthroscopy Knee, Total Knee Replacement Other Surgeries: Yes: Appendectomy, Hernia Repair, Other (brain tumor, lung, right knee) Amputation: No Fractures: No Comment: Resection of brain tumor - Social History Smoking Status: Never smoker Alcohol Intake: never Alcohol Intake Frequency:: holidays/special occasions only Occupational Status: disabled Housing: house Household Members: spouse - Psychiatric History Expresses thoughts of harming self/others: None Suicide Plan Description: No Plan Family Hx:: Hypertension Comment: Arthritis ROS Obtained: Yes unobtainable due to mental status Physical Exam - General General appearance: alert, lethargic Comment: Nonverbal. Tachypneic. - Head Head exam: other (Surgical incisions of the scalp) - Eye Eye exam: Present: normal appearance, PERRL, EOMI - Neck Neck exam: Present: normal inspection, full ROM, trachea midline. Absent: meningismus, lymphadenopathy - Chest Chest inspection: Present: normal inspection, symmetric chest wall rise. Absent : tenderness - Respiratory Respiratory exam: Present: other (Audible rattling) - Cardiovascular Cardiovascular exam: Present: normal rhythm, tachycardia. Absent: JVD - Abdominal Exam Abdominal exam: Present: soft, normal bowel sounds. Absent: distention, guarding - Extremities Exam Extremities exam: Present: normal inspection, normal capillary refill. Absent: pedal edema - Neurological Exam Neurological exam: Present: other (Lethargic) - Skin Skin exam: Present: warm, dry, intact
[2018-03-18 19:23] LABS: Basophils # 0.1 K/mm3 (0-0.2); Basophils % 0.2 % (0.1-2.0); Eosinophils # 0.1 K/mm3 (0.0-0.4); Eosinophils % 0.5 % (0.1-12.0); Hematocrit 35.5 % (42.0-52.0); Hemoglobin 10.9 g/dL (14.1-18.0); Lymphocytes # 1.5 K/mm3 (0.7-4.5); Lymphocytes % 6.2 K/mm3 (10-50); Mean Corpuscular HGB Conc 30.8 g/dL (31.8-35.4); Mean Corpuscular Hemoglobin 26.6 pg (27.0-31.2); Mean Corpuscular Volume 86.2 fl (80-94); Mean Platelet Volume 7.3 fl (7.4-10.4); Monocytes # 0.7 K/mm3 (0.1-1.0); Monocytes % 2.7 % (1.7-9.3); Neutrophils # 22.3 K/mm3 (1.8-7.8); Neutrophils % 90.4 % (37.0-80.0); Platelet Count 204 K/mm3 (142-424); Red Blood Count 4.12 M/mm3 (4.60-6.20); Red Cell Distribution Width 17.2 % (11.5-17.5); White Blood Count 24.6 K/mm3 (4.8-10.8)
[2018-03-18 19:32] LABS: Albumin Level 2.6 gm/dL (3.4-5.0); Albumin/Globulin Ratio 0.8 (1.1-1.8); Anion Gap 18.8 mEq/L (5-15); Bilirubin,Total 0.9 mg/dL (0.2-1.0); Calcium 9.7 mg/dL (8.5-10.1); Globulin 3.4 gm/dl (1.3-3.2); Potassium 3.8 mmoL/L (3.5-5.1)
[2018-03-18 19:48] LABS: Lymphocytes % 6 % (10-50); Monocytes % 2 % (2-9); Neutrophils % 87 % (42-76); Total Cells Counted 100
[2018-03-18 19:54] LABS: ABG Base Excess -2.8 mmol/L (-2.4-2.3); ABG HCO3 21.3 mmhg (22.0-26.0); ABG Oxygen Saturation 97 % (90-100); ABG PH 7.44 mmol/L (7.35-7.45); ABG PO2 109.6 mmhg (80-100); ABG TCO2 22.3 mmhg (23-27)
[2018-03-18 19:56] LABS: Allen's Test Acceptable; Oxygen 8 LPM 52% VIA NEB %
[2018-03-19 06:57] LABS: Lymphocytes # 0.4 K/mm3 (0.7-4.5); Monocytes # 0.4 K/mm3 (0.1-1.0)
[2018-03-19 07:07] LABS: Basophils # 0.1 K/mm3 (0-0.2); Basophils % 0.4 % (0.1-2.0); Eosinophils # 0.1 K/mm3 (0.0-0.4); Eosinophils % 0.7 % (0.1-12.0); Mean Corpuscular HGB Conc 32.8 g/dL (31.8-35.4); Mean Corpuscular Hemoglobin 27.8 pg (27.0-31.2); Mean Corpuscular Volume 84.8 fl (80-94); Mean Platelet Volume 7.3 fl (7.4-10.4); Monocytes % 3.1 % (1.7-9.3); Neutrophils # 12.2 K/mm3 (1.8-7.8); Neutrophils % 92.8 % (37.0-80.0); Platelet Count 124 K/mm3 (142-424); Red Blood Count 3.18 M/mm3 (4.60-6.20); Red Cell Distribution Width 17.6 % (11.5-17.5); White Blood Count 13.2 K/mm3 (4.8-10.8)
[2018-03-19 07:09] LABS: Hemoglobin 8.8 g/dL (14.1-18.0)
[2018-03-19 07:11] LABS: Anion Gap 11.6 mEq/L (5-15); Potassium 3.6 mmoL/L (3.5-5.1)
[2018-03-19 08:06] LABS: Lymphocytes % 3 % (10-50); Monocytes % 5 % (2-9); Neutrophils % 92 % (42-76); Nucleated Red Blood Cells 2; Tear Drop Cells 1+; Total Cells Counted 100
--- NOTE | 2018-03-19 09:10 | Pharmacy Consult Notes ---
[facility] VTE Monitoring - Patient Demographics Admission date: 03/19/18 Report Date: 03/19/18 Time: 09:09 Allergies/Adverse Reactions: Patient Allergies No Known Allergies Allergy (Verified 03/18/18 18:37) Height: 1.83 m Weight: 59.137 kg Patient Problems: Current Active Problems Healthcare-associated pneumonia (Acute) Acute respiratory failure with hypoxia (Acute) Metastatic lung cancer (metastasis from lung to other site) (Acute) - VTE Risk Labs: VTE Related Lab Results Hgb 8.8 g/dL (14.1-18.0) L D 03/19/18 06:45 Hct 27.0 % (42.0-52.0) L 03/19/18 06:45 Plt Count 124 K/mm3 (142-424) L D 03/19/18 06:45 BUN 36 mg/dL (7-18) H 03/19/18 06:45 Creatinine 0.78 mg/dL (0.70-1.30) D 03/19/18 06:45 Estimated Creat Clear 91 mL/min (0-300) 03/19/18 06:45 Was VTE Risk Assessment Performed: Yes VTE Risk Level: Moderate Risk - Prophylaxis Types of VTE Prophylaxis: TEDS Knee High Location of Applied Device: Bilateral Lower Extremeties, Not Applicable - VTE Diagnosis Confirmed Comment: SUKI YOSTE ORDERED
--- NOTE | 2018-03-19 09:25 | History & Physical Report ---
*Admission Date: 03/19/18 *Chief complaint: shortness of breath *History of present illness: Brady is a 52-year-old white male with a history of primary lung cancer and metastases to the brain who hasexhausted treatment options and is now enrolled in hospice although he is not a DNR status. He was seen in the office 4 days ago in followup from a hospital admission in [facility] when he suffered an intracranial bleed after a fall. This required no intervention and has been resolving. While in the office 4 days ago he was noted to have a congested cough. No fever. His white count was elevated and he was started on antibiotics. His states that he has had very poor oral intake and is refusing to take most of his medications including the antibiotic that was prescribed 4 days ago. Last night while up to the bathroom he became quite weak and appeared to pass out. Family stated that his eyes rolled back in his head and his lips turned blue and he did not appear to be breathing very well. He called 911 and was brought to the R. On workup in the emergency room, his initial O2 saturations was 99% although he has been on home oxygen and supplemental oxygen in route to the hospital. His white blood cell count was elevated and his lactic acid was elevated at 7.5. A chest x-ray showed a persistent left lower lobe infiltrate. Upon reviewing old reports, this infiltrate has been present going back to at least October 2017. It is remarkable to note that his BUN and creatinine were fairly normal. He has now been admitted and started on triple antibiotic therapy for healthcare acquired pneumonia. He rested well through the night after receiving a single dose of morphine upon arrival to the floor. [facility] History Medical History: Reports:: Cancer (primary lung with brain mets), Deep Vein Thrombosis, Hypertension, Kidney Stones, Valvular Heart Disease (mitral regurgitation) Denies:: Diabetes Mellitus Type 1, Diabetes Mellitus Type 2, MRSA, Pulmonary Embolism Other Medical History: Reports: Chemotherapy, Hoarseness, Radiation Therapy Laterality Cases: Right: Arthroscopy Knee, Total Knee Replacement Other Surgeries: Yes: Appendectomy, Hernia Repair, Other (crainiotomy) Amputation: No Fractures: No - *Social History Educational Level: Completed High School Smoking Status: Never smoker Alcohol Intake: never Alcohol Intake Frequency:: holidays/special occasions only Occupational Status: disabled Housing: house Household Members: spouse - Psychiatric History Expresses thoughts of harming self/others: None Suicide Plan Description: No Plan *Family Hx:: Hypertension Review of Systems - Constitutional Reports anorexia, Reports daytime sleepiness, Reports lack of energy, Reports malaise, Reports weakness, Reports weight loss - Eyes Denies blurry vision, Denies change in vision - ENT Reports other (thrush), Denies nosebleed - *Cardiovascular Reports shortness of breath, Reports fast heart rate, Denies chest pain, Denies leg swelling - *Respiratory Reports chest congestion, Reports cough, Reports shortness of breath, Reports shortness of breath with activity, Denies coughing up blood - *Gastrointestinal Denies abdominal pain, Denies change in bowel habits, Denies constipation, Denies vomiting blood, Denies vomiting - *Genitourinary Denies difficulty urinating - *Musculoskeletal Reports decreased muscle mass, Reports muscle weakness - *Neurologic Reports unsteadiness, Reports weakness - Psychiatric Reports abnormal sleep pattern (sleeps most of the time) Meds Home Medications Medication Instructions Recorded Confirmed Type Magnesium Oxide [Magox 400] 400 mg PO DAILY 11/14/17 03/19/18 History Ondansetron HCl [Ondansetron 8mg 8 mg PO Q6HP PRN 11/14/17 03/18/18 History Tab] Pantoprazole Sodium [Protonix 40mg 40 mg PO HS 11/14/17 03/19/18 History tablet] Potassium Chloride [Klor-con 20 20 meq PO DAILY 11/14/17 03/18/18 History mEq tablet] Baclofen [Lioresal 10mg tablet] 10 mg PO TIDP PRN 02/01/18 03/19/18 History Dexamethasone 10 mg PO TID 02/01/18 03/18/18 History Benzonatate [Benzonatate 200mg Cap] 200 mg PO Q6HP PRN 03/19/18 03/19/18 History levoFLOXacin [Levofloxacin 750MG 750 mg PO DAILY 03/19/18 03/19/18 History Tablet] Allergies Allergy/AdvReac Type Severity Reaction Status Date / Time No Known Allergies Allergy Verified 03/18/18 18:37 Exam Vital signs and Labs for Last 24 Hours: Temp Pulse Resp BP Pulse Ox 98.5 F 88 20 106/59 99 03/19/18 07:24 03/19/18 07:24 03/19/18 07:24 03/19/18 07:24 03/19/18 07:24 Laboratory Results - last 24 hr 03/18/18 18:56: WBC 24.6 H*, RBC 4.12 L, Hgb 10.9 L, Hct 35.5 L, MCV 86.2, MCH 26.6 L, MCHC 30.8 L, RDW 17.2, Plt Count 204, MPV 7.3 L, Neut % (Auto) 90.4 H, Lymph % (Auto) 6.2 L, [place] % (Auto) 2.7, Eos % (Auto) 0.5, Baso % (Auto) 0.2, Neut # (Auto) 22.3 H, Lymph # (Auto) 1.5, [place] # (Auto) 0.7, Eos # (Auto) 0.1, Baso # (Auto) 0.1, Total Counted 100, Neutrophils % (Manual) 87 H, Band Neutrophils % 3.0, Lymphocytes % (Manual) 6 L, Atypical Lymphs % 2.0, Monocytes % (Manual) 2, Platelet Estimate Normal, RBC Morphology Not Reportable 03/18/18 18:56: Sodium 137, Potassium 3.8, Chloride 99, Carbon Dioxide 23, Anion Gap 18.8 H, BUN 44 H, Creatinine 1.32 H, Estimated Creat Clear 60, Estimated GFR 57 L, Est GFR ( Amer) 68, Glucose 226 H, Calcium 9.7, Total Bilirubin 0.9, AST 61 H, ALT 26, Alkaline Phosphatase 281 H, Troponin I 0.03, Total Protein 6.0 L, Albumin 2.6 L, Globulin 3.4 H, Albumin/Globulin Ratio 0.8 L 03/18/18 18:56: Lactic Acid 7.5 H 03/18/18 18:56: B-Natriuretic Peptide 65 03/18/18 19:07: O2 % 8 lpm 52% via neb, ABG pH 7.44, ABG pCO2 32.0 L, ABG pO2 109.6 H, ABG HCO3 21.3 L, ABG Total CO2 22.3 L, ABG O2 Saturation 97, ABG Base Excess -2.8 L, Rene Test Acceptable 03/18/18 23:08: POC Glucose 219 H 03/18/18 23:42: Lactic Acid Fup @ 4Hr 5.6 H 03/19/18 02:15: Lactic Acid Fup @ 2Hr 4.0 H 03/19/18 06:45: WBC 13.2 H D, RBC 3.18 L, Hgb 8.8 L D, Hct 27.0 L, MCV 84.8, MCH 27.8, MCHC 32.8, RDW 17.6 H, Plt Count 124 L D, MPV 7.3 L, Neut % (Auto) 92.8 H, Lymph % (Auto) 3.0 L, [place] % (Auto) 3.1, Eos % (Auto) 0.7, Baso % (Auto ) 0.4, Neut # (Auto) 12.2 H, Lymph # (Auto) 0.4 L, [place] # (Auto) 0.4, Eos # ( Auto) 0.1, Baso # (Auto) 0.1, Total Counted 100, Neutrophils % (Manual) 92 H, Lymphocytes % (Manual) 3 L, Monocytes % (Manual) 5, Nucleated RBCs 2, Platelet Estimate Slight decrease, RBC Morphology Not Reportable, Tear Drop Cells 1+ 03/19/18 06:45: Sodium 138, Potassium 3.6, Chloride 103, Carbon Dioxide 27, Anion Gap 11.6, BUN 36 H, Creatinine 0.78 D, Estimated Creat Clear 91, Estimated GFR 104, Est GFR ( Amer) 126 D, Glucose 99 D 03/19/18 06:48: POC Glucose 98 I & O for Last 24 hours: Intake & Output 03/16/18 03/17/18 03/18/18 03/19/18 11:59 11:59 11:59 11:59 Intake Total 850 / 850 Balance 850 / 850 Weight 130 lb 6 oz - Constitutional no acute distress, chronically ill appearing - *Routine HEENT Exam Head: Present: normocephalic (healed surgical scars; faint bruise over right islam) Eye: Present: EOMI, PERRL. Absent: scleral injection ENT: Present: mucous membranes dry Comments: thrush on hard palate - *Routine Neck Exam Absent: carotid bruit, lymphadenopathy - *Routine Respiratory Exam Comments: scattered coarse rhonchi and faint wheezes - *Routine Cardiovascular Exam Present: RRR - *Routine Abdominal Exam Present: soft. Absent: tenderness, distended, guarding, organomegaly - *Routine Extremities Exam Absent: cyanosis, edema, calf tenderness - *Routine Neurological Exam weak and lethargic; mostly nonverbal; responds slowly to questions. No focal motor deficits H&P: Result - Labs Labs: Short CBC 03/18/18 03/19/18 Range/Units 18:56 06:45 WBC 24.6 H* 13.2 H D (4.8-10.8) K/mm3 Hgb 10.9 L 8.8 L D (14.1-18.0) g/dL Hct 35.5 L 27.0 L (42.0-52.0) % Plt Count 204 124 L D (142-424) K/mm3 BMP 03/18/18 03/19/18 18:56 06:45 Sodium 137 138 Potassium 3.8 3.6 Chloride 99 103 Carbon Dioxide 23 27 BUN 44 H 36 H Creatinine 1.32 H 0.78 D Glucose 226 H 99 D Calcium 9.7 Cardiac Enzymes 03/18/18 Range/Units 18:56 Troponin I 0.03 (0.00-0.06) ng/ml Liver Function 03/18/18 Range/Units 18:56 Total Bilirubin 0.9 (0.2-1.0) mg/dL AST 61 H (15-37) U/L ALT 26 (12-78) U/L Alkaline Phosphatase 281 H (46-116) U/L Albumin 2.6 L (3.4-5.0) gm/dL Assessment and Plan (1) Healthcare-associated pneumonia Current visit: Yes Status: Acute Category: Medical Code(s): J18.9 - Pneumonia, unspecified organism (2) Lung cancer metastatic to brain Current visit: No Status: Chronic Category: Medical Code(s): C34.90 - Malignant neoplasm of unspecified part of unspecified bronchus or lung; C79.31 - Secondary malignant neoplasm of brain (3) Thrush, oral Current visit: Yes Status: Acute Category: Medical Code(s): B37.0 - Candidal stomatitis (4) Hospice care patient Current visit: Yes Status: Acute Category: Medical Code(s): Z51.5 - Encounter for palliative care (5) Hx of deep venous thrombosis Current visit: No Status: Chronic Category: Medical Code(s): Z86.718 - Personal history of other venous thrombosis and embolism
--- NOTE | 2018-03-19 09:44 | Pharmacy Consult Notes ---
- Pharmacy Consult Date: 03/19/18 Time: 09:42 Referring provider: DR. MOCTEZUMA Reason for Consult:: VANCOMYCIN DOSING Allergies and ADEs:: Allergies Allergy/AdvReac Type Severity Reaction Status Date / Time No Known Allergies Allergy Verified 03/18/18 18:37 Home Medications:: Home Medications Medication Instructions Recorded Confirmed Type Magnesium Oxide [Magox 400] 400 mg PO DAILY 11/14/17 03/19/18 History Ondansetron HCl [Ondansetron 8mg 8 mg PO Q6HP PRN 11/14/17 03/18/18 History Tab] Pantoprazole Sodium [Protonix 40mg 40 mg PO HS 11/14/17 03/19/18 History tablet] Potassium Chloride [Klor-con 20 20 meq PO DAILY 11/14/17 03/18/18 History mEq tablet] Baclofen [Lioresal 10mg tablet] 10 mg PO TIDP PRN 02/01/18 03/19/18 History Dexamethasone 10 mg PO TID 02/01/18 03/18/18 History Benzonatate [Benzonatate 200mg Cap] 200 mg PO Q6HP PRN 03/19/18 03/19/18 History levoFLOXacin [Levofloxacin 750MG 750 mg PO DAILY 03/19/18 03/19/18 History Tablet] Height: 1.83 m Weight: 59.137 kg Laboratory Results:: Laboratory Results - last 24 hr 03/18/18 18:56: WBC 24.6 H*, RBC 4.12 L, Hgb 10.9 L, Hct 35.5 L, MCV 86.2, MCH 26.6 L, MCHC 30.8 L, RDW 17.2, Plt Count 204, MPV 7.3 L, Neut % (Auto) 90.4 H, Lymph % (Auto) 6.2 L, [place] % (Auto) 2.7, Eos % (Auto) 0.5, Baso % (Auto) 0.2, Neut # (Auto) 22.3 H, Lymph # (Auto) 1.5, [place] # (Auto) 0.7, Eos # (Auto) 0.1, Baso # (Auto) 0.1, Total Counted 100, Neutrophils % (Manual) 87 H, Band Neutrophils % 3.0, Lymphocytes % (Manual) 6 L, Atypical Lymphs % 2.0, Monocytes % (Manual) 2, Platelet Estimate Normal, RBC Morphology Not Reportable 03/18/18 18:56: Sodium 137, Potassium 3.8, Chloride 99, Carbon Dioxide 23, Anion Gap 18.8 H, BUN 44 H, Creatinine 1.32 H, Estimated Creat Clear 60, Estimated GFR 57 L, Est GFR ( Amer) 68, Glucose 226 H, Calcium 9.7, Total Bilirubin 0.9, AST 61 H, ALT 26, Alkaline Phosphatase 281 H, Troponin I 0.03, Total Protein 6.0 L, Albumin 2.6 L, Globulin 3.4 H, Albumin/Globulin Ratio 0.8 L 03/18/18 18:56: Lactic Acid 7.5 H 03/18/18 18:56: B-Natriuretic Peptide 65 03/18/18 19:07: O2 % 8 lpm 52% via neb, ABG pH 7.44, ABG pCO2 32.0 L, ABG pO2 109.6 H, ABG HCO3 21.3 L, ABG Total CO2 22.3 L, ABG O2 Saturation 97, ABG Base Excess -2.8 L, Rene Test Acceptable 03/18/18 23:08: POC Glucose 219 H 03/18/18 23:42: Lactic Acid Fup @ 4Hr 5.6 H 03/19/18 02:15: Lactic Acid Fup @ 2Hr 4.0 H 03/19/18 06:45: WBC 13.2 H D, RBC 3.18 L, Hgb 8.8 L D, Hct 27.0 L, MCV 84.8, MCH 27.8, MCHC 32.8, RDW 17.6 H, Plt Count 124 L D, MPV 7.3 L, Neut % (Auto) 92.8 H, Lymph % (Auto) 3.0 L, [place] % (Auto) 3.1, Eos % (Auto) 0.7, Baso % (Auto ) 0.4, Neut # (Auto) 12.2 H, Lymph # (Auto) 0.4 L, [place] # (Auto) 0.4, Eos # ( Auto) 0.1, Baso # (Auto) 0.1, Total Counted 100, Neutrophils % (Manual) 92 H, Lymphocytes % (Manual) 3 L, Monocytes % (Manual) 5, Nucleated RBCs 2, Platelet Estimate Slight decrease, RBC Morphology Not Reportable, Tear Drop Cells 1+ 03/19/18 06:45: Sodium 138, Potassium 3.6, Chloride 103, Carbon Dioxide 27, Anion Gap 11.6, BUN 36 H, Creatinine 0.78 D, Estimated Creat Clear 91, Estimated GFR 104, Est GFR ( Amer) 126 D, Glucose 99 D 03/19/18 06:48: POC Glucose 98 Medical History: Reports:: Cancer, Deep Vein Thrombosis, Hypertension, Kidney Stones Denies:: Diabetes Mellitus Type 1, Diabetes Mellitus Type 2, MRSA Assessment and Plan - Assessment and plan all Dx Assessment and Plan for all problems:: PATIENT RECEIVED VANCOMYCIN 1250 MG X1 DOSE IN ER OVERNIGHT. BASED ON PATIENT' S FACTORS, RECOMMEND CONTINUING WITH VANCOMYCIN 1000 MG Q12H. PHARMACY WILL FOLLOW DAILY AND ADJUST APPROPRIATE. BRADY PORTILLO, HARISHD
[2018-03-20 06:50] LABS: Basophils % 0.1 % (0.1-2.0); Eosinophils # 0.1 K/mm3 (0.0-0.4); Eosinophils % 0.9 % (0.1-12.0); Lymphocytes # 0.5 K/mm3 (0.7-4.5); Lymphocytes % 3.9 K/mm3 (10-50); Mean Corpuscular HGB Conc 32.4 g/dL (31.8-35.4); Mean Corpuscular Volume 86.4 fl (80-94); Mean Platelet Volume 7.5 fl (7.4-10.4); Monocytes # 0.4 K/mm3 (0.1-1.0); Monocytes % 3.5 % (1.7-9.3); Neutrophils # 10.9 K/mm3 (1.8-7.8); Neutrophils % 91.5 % (37.0-80.0); Platelet Count 102 K/mm3 (142-424); Red Cell Distribution Width 17.5 % (11.5-17.5); White Blood Count 11.9 K/mm3 (4.8-10.8)
[2018-03-20 06:54] LABS: Hematocrit 24.2 % (42.0-52.0); Hemoglobin 7.8 g/dL (14.1-18.0)
[2018-03-20 07:03] LABS: Lymphocytes % 8 % (10-50); Monocytes % 2 % (2-9); Neutrophils % 81 % (42-76); Ovalocytes 1+; Total Cells Counted 100
[2018-03-20 07:04] LABS: Polychromasia 1+
[2018-03-20 07:09] LABS: Albumin/Globulin Ratio 0.8 (1.1-1.8); Bilirubin,Total 0.8 mg/dL (0.2-1.0); Globulin 2.6 gm/dl (1.3-3.2); Thyroid Stimulating Hormone 1.05 uIU/ml (0.358-3.740); Total Protein,Serum 4.6 gm/dL (6.4-8.2)
[2018-03-20 07:13] LABS: Calcium 8.4 mg/dL (8.5-10.1)
--- NOTE | 2018-03-20 10:10 | Progress Note ---
Internal Medicine - PN: Subj *Date: 03/20/18 *Time: 10:07 Interval history: Ate a few bites yesterday and took medication during the day but refused meds last night. Has episode of hypoxia early this AM and required NT suctioning. Specimen obtained. Noted with very weak cough and not expectorating sputum. Had morphine early this morning and is sleeping now. Exam Vital signs and Labs for Last 24 Hours: Temp Pulse Resp BP Pulse Ox 97.7 F 110 H 22 121/57 95 03/20/18 04:00 03/20/18 07:39 03/20/18 07:39 03/20/18 07:39 03/20/18 05:27 Laboratory Results - last 24 hr 03/20/18 06:36: WBC 11.9 H, RBC 2.80 L, Hgb 7.8 L*, Hct 24.2 L, MCV 86.4, MCH 28.0, MCHC 32.4, RDW 17.5, Plt Count 102 L, MPV 7.5, Neut % (Auto) 91.5 H, Lymph % (Auto) 3.9 L, [place] % (Auto) 3.5, Eos % (Auto) 0.9, Baso % (Auto) 0.1, Neut # (Auto) 10.9 H, Lymph # (Auto) 0.5 L, [place] # (Auto) 0.4, Eos # (Auto) 0.1 , Baso # (Auto) 0.0, Total Counted 100, Neutrophils % (Manual) 81 H, Band Neutrophils % 9.0 H, Lymphocytes % (Manual) 8 L, Monocytes % (Manual) 2, Platelet Estimate Slight decrease, Polychromasia 1+, Poikilocytosis 1+, Ovalocytes 1+ 03/20/18 06:36: Sodium 138, Potassium 3.0 L, Chloride 103, Carbon Dioxide 23, Anion Gap 15.0, BUN 24 H D, Creatinine 0.65 L, Estimated Creat Clear 109, Estimated GFR 128, Est GFR ( Amer) 155 D, Glucose 79 D, Calcium 8.4 L D , Total Bilirubin 0.8, AST 139 H D, ALT 23, Alkaline Phosphatase 275 H, Total Protein 4.6 L, Albumin 2.0 L D, Globulin 2.6, Albumin/Globulin Ratio 0.8 L, TSH 1.05 03/20/18 06:36: Vancomycin Trough 20.9 H 03/20/18 09:40: Crossmatch (AHG) See Detail I & O for Last 24 hours: Intake & Output 03/17/18 03/18/18 03/19/18 03/20/18 11:59 11:59 11:59 11:59 Intake Total 850 / 850 1311 / 1311 Balance 850 / 850 1311 / 1311 Weight 130 lb 6 oz - Constitutional no acute distress Comments: somnolent, does not arouse. - *Routine Respiratory Exam Comments: bilateral coarse rhonchi - *Routine Cardiovascular Exam Present: RRR - *Routine Abdominal Exam Present: soft. Absent: distended - *Routine Extremities Exam Absent: edema Assessment and Plan (1) Healthcare-associated pneumonia Current visit: Yes Status: Acute Category: Medical Code(s): J18.9 - Pneumonia, unspecified organism (2) Lung cancer metastatic to brain Current visit: No Status: Chronic Category: Medical Code(s): C34.90 - Malignant neoplasm of unspecified part of unspecified bronchus or lung; C79.31 - Secondary malignant neoplasm of brain (3) Thrush, oral Current visit: Yes Status: Acute Category: Medical Code(s): B37.0 - Candidal stomatitis (4) Hospice care patient Current visit: Yes Status: Acute Category: Medical Code(s): Z51.5 - Encounter for palliative care (5) Hx of deep venous thrombosis Current visit: No Status: Chronic Category: Medical Code(s): Z86.718 - Personal history of other venous thrombosis and embolism (6) Anemia Current visit: No Status: Chronic Category: Medical Code(s): D64.9 - Anemia, unspecified (7) Hypoxemia Current visit: Yes Status: Acute Category: Medical Code(s): R09.02 - Hypoxemia (8) Hypokalemia Current visit: No Status: Acute Category: Medical Code(s): E87.6 - Hypokalemia - Assessment and plan all Dx Assessment and Plan for all problems:: Hypoxemia likely due to mucous plugging. Will continue aerosols and add Mucinex. H&H has decreased further. Will proceed with blood transfusion. Add KCL to IVF. Encouraged to get OOB into chair
--- NOTE | 2018-03-20 13:42 | Pharmacy Consult Notes ---
- Pharmacy Consult Date: 03/20/18 Time: 13:40 Referring provider: DR. MOCTEZUMA Reason for Consult:: VANCOMYCIN TROUGH LEVEL Allergies and ADEs:: Allergies Allergy/AdvReac Type Severity Reaction Status Date / Time No Known Allergies Allergy Verified 03/18/18 18:37 Home Medications:: Home Medications Medication Instructions Recorded Confirmed Type Magnesium Oxide [Magox 400] 400 mg PO DAILY 11/14/17 03/19/18 History Ondansetron HCl [Ondansetron 8mg 8 mg PO Q6HP PRN 11/14/17 03/18/18 History Tab] Pantoprazole Sodium [Protonix 40mg 40 mg PO HS 11/14/17 03/19/18 History tablet] Potassium Chloride [Klor-con 20 20 meq PO DAILY 11/14/17 03/18/18 History mEq tablet] Baclofen [Lioresal 10mg tablet] 10 mg PO TIDP PRN 02/01/18 03/19/18 History Dexamethasone 10 mg PO TID 02/01/18 03/18/18 History Benzonatate [Benzonatate 200mg Cap] 200 mg PO Q6HP PRN 03/19/18 03/19/18 History levoFLOXacin [Levofloxacin 750MG 750 mg PO DAILY 03/19/18 03/19/18 History Tablet] Height: 1.83 m Weight: 59.137 kg Laboratory Results:: Laboratory Results - last 24 hr 03/20/18 06:36: WBC 11.9 H, RBC 2.80 L, Hgb 7.8 L*, Hct 24.2 L, MCV 86.4, MCH 28.0, MCHC 32.4, RDW 17.5, Plt Count 102 L, MPV 7.5, Neut % (Auto) 91.5 H, Lymph % (Auto) 3.9 L, [place] % (Auto) 3.5, Eos % (Auto) 0.9, Baso % (Auto) 0.1, Neut # (Auto) 10.9 H, Lymph # (Auto) 0.5 L, [place] # (Auto) 0.4, Eos # (Auto) 0.1 , Baso # (Auto) 0.0, Total Counted 100, Neutrophils % (Manual) 81 H, Band Neutrophils % 9.0 H, Lymphocytes % (Manual) 8 L, Monocytes % (Manual) 2, Platelet Estimate Slight decrease, Polychromasia 1+, Poikilocytosis 1+, Ovalocytes 1+ 03/20/18 06:36: Sodium 138, Potassium 3.0 L, Chloride 103, Carbon Dioxide 23, Anion Gap 15.0, BUN 24 H D, Creatinine 0.65 L, Estimated Creat Clear 109, Estimated GFR 128, Est GFR ( Amer) 155 D, Glucose 79 D, Calcium 8.4 L D , Total Bilirubin 0.8, AST 139 H D, ALT 23, Alkaline Phosphatase 275 H, Total Protein 4.6 L, Albumin 2.0 L D, Globulin 2.6, Albumin/Globulin Ratio 0.8 L, TSH 1.05 03/20/18 06:36: Vancomycin Trough 20.9 H 03/20/18 09:40: Blood Type O Positive, Antibody Screen Negative, Crossmatch (AHG ) See Detail Medical History: Reports:: Cancer (primary lung with brain mets), Deep Vein Thrombosis, Hypertension, Kidney Stones, Valvular Heart Disease (mitral regurgitation) Denies:: Diabetes Mellitus Type 1, Diabetes Mellitus Type 2, MRSA, Pulmonary Embolism Assessment and Plan (1) Healthcare-associated pneumonia Current visit: Yes Status: Acute Category: Medical Code(s): J18.9 - Pneumonia, unspecified organism (2) Lung cancer metastatic to brain Current visit: No Status: Chronic Category: Medical Code(s): C34.90 - Malignant neoplasm of unspecified part of unspecified bronchus or lung; C79.31 - Secondary malignant neoplasm of brain (3) Thrush, oral Current visit: Yes Status: Acute Category: Medical Code(s): B37.0 - Candidal stomatitis (4) Hospice care patient Current visit: Yes Status: Acute Category: Medical Code(s): Z51.5 - Encounter for palliative care (5) Hx of deep venous thrombosis Current visit: No Status: Chronic Category: Medical Code(s): Z86.718 - Personal history of other venous thrombosis and embolism (6) Anemia Current visit: No Status: Chronic Category: Medical Code(s): D64.9 - Anemia, unspecified (7) Hypoxemia Current visit: Yes Status: Acute Category: Medical Code(s): R09.02 - Hypoxemia (8) Hypokalemia Current visit: No Status: Acute Category: Medical Code(s): E87.6 - Hypokalemia - Assessment and plan all Dx Assessment and Plan for all problems:: BASED ON VANCOMYCIN LEVEL OF 20.9 MCG/ML AT 2.5 HOURS PRIOR TO NEXT DOSE, RECOMMEND CONTINUING WITH CURRENT DOSE OF VANCOMYCIN 1000 MG Q12H AT THIS TIME. PHARMACY WILL FOLLOW DAILY AND ADJUST APPROPRIATE. BRADY PORTILLO, PHARMD
[2018-03-20 17:32] LABS: Hematocrit 30.4 % (42.0-52.0)
[2018-03-20 17:34] LABS: Hemoglobin 10.1 g/dL (14.1-18.0)
[2018-03-20 21:24] LABS: ABG Base Excess -4.4 mmol/L (-2.4-2.3); ABG HCO3 19.6 mmhg (22.0-26.0); ABG Oxygen Saturation 90 % (90-100); ABG PCO2 28.8 mmhg (35.0-45.0); ABG PH 7.45 mmol/L (7.35-7.45); ABG PO2 54.6 mmhg (80-100); ABG TCO2 20.5 mmhg (23-27)
[2018-03-20 21:25] LABS: Allen's Test Y; Oxygen 2 %
[2018-03-21 01:09] LABS: Albumin Level 1.8 gm/dL (3.4-5.0); Albumin/Globulin Ratio 0.6 (1.1-1.8); Bilirubin,Total 1.1 mg/dL (0.2-1.0); Calcium 8.4 mg/dL (8.5-10.1); Globulin 2.8 gm/dl (1.3-3.2); Total Protein,Serum 4.6 gm/dL (6.4-8.2)
[2018-03-21 06:38] LABS: Basophils % 0.2 % (0.1-2.0); Eosinophils # 0.1 K/mm3 (0.0-0.4); Hematocrit 33.5 % (42.0-52.0); Hemoglobin 11.1 g/dL (14.1-18.0); Lymphocytes # 0.9 K/mm3 (0.7-4.5); Lymphocytes % 5.7 K/mm3 (10-50); Mean Corpuscular Hemoglobin 27.9 pg (27.0-31.2); Mean Corpuscular Volume 84.5 fl (80-94); Mean Platelet Volume 7.5 fl (7.4-10.4); Monocytes # 0.3 K/mm3 (0.1-1.0); Monocytes % 2.1 % (1.7-9.3); Neutrophils # 13.6 K/mm3 (1.8-7.8); Platelet Count 83 K/mm3 (142-424); Red Blood Count 3.96 M/mm3 (4.60-6.20); Red Cell Distribution Width 16.4 % (11.5-17.5); White Blood Count 14.9 K/mm3 (4.8-10.8)
[2018-03-21 06:43] LABS: Anion Gap 11.2 mEq/L (5-15); Potassium 3.2 mmoL/L (3.5-5.1)
[2018-03-21 07:04] LABS: Lymphocytes % 3 % (10-50); Monocytes % 4 % (2-9); Neutrophils % 93 % (42-76); Nucleated Red Blood Cells 1; Tear Drop Cells 1+; Total Cells Counted 100
--- NOTE | 2018-03-21 09:16 | Progress Note ---
<Dipti Pino - Last Filed: 03/21/18 09:16> Internal Medicine - PN: Subj *Date: 03/21/18 *Time: 09:16 Interval history: Patient responding poorly. Family at bedside and state that he did rest well last night. He did not eat and drink anything yesterday. He will not allow them to clean out his mouth. Exam Vital signs and Labs for Last 24 Hours: Temp Pulse Resp BP Pulse Ox 98.0 F 119 H 16 144/77 95 03/21/18 08:19 03/21/18 08:19 03/21/18 08:19 03/21/18 08:19 03/21/18 08:19 Laboratory Results - last 24 hr 03/20/18 09:40: Blood Type O Positive, Antibody Screen Negative, Crossmatch (AHG ) See Detail 03/20/18 17:24: Hgb 10.1 L D, Hct 30.4 L 03/20/18 21:23: Specimen Source R/r, O2 % 2, ABG pH 7.45, ABG pCO2 28.8 L, ABG pO2 54.6 L, ABG HCO3 19.6 L, ABG Total CO2 20.5 L, ABG O2 Saturation 90, ABG Base Excess -4.4 L, Rene Test Y 03/21/18 00:45: Sodium 142, Potassium 3.0 L, Chloride 97 L, Carbon Dioxide 24, Anion Gap 24.0 H, BUN 15 D, Creatinine 0.68 L, Estimated Creat Clear 104, Estimated GFR 122, Est GFR ( Amer) 147, Glucose 98 D, Calcium 8.4 L, Total Bilirubin 1.1 H, AST 116 H, ALT 20, Alkaline Phosphatase 274 H, Total Protein 4.6 L, Albumin 1.8 L, Globulin 2.8, Albumin/Globulin Ratio 0.6 L 03/21/18 00:45: Lactic Acid 1.4 03/21/18 06:25: WBC 14.9 H D, RBC 3.96 L D, Hgb 11.1 L, Hct 33.5 L, MCV 84.5, MCH 27.9, MCHC 33.0, RDW 16.4, Plt Count 83 L, MPV 7.5, Neut % (Auto) 91.0 H, Lymph % (Auto) 5.7 L, [place] % (Auto) 2.1, Eos % (Auto) 1.0, Baso % (Auto) 0.2, Neut # (Auto) 13.6 H, Lymph # (Auto) 0.9, [place] # (Auto) 0.3, Eos # (Auto) 0.1, Baso # (Auto) 0.0, Total Counted 100, Neutrophils % (Manual) 93 H, Lymphocytes % (Manual) 3 L, Monocytes % (Manual) 4, Nucleated RBCs 1, Platelet Estimate Moderate decrease, Tear Drop Cells 1+ 03/21/18 06:25: Sodium 135 L, Potassium 3.2 L, Chloride 101, Carbon Dioxide 26, Anion Gap 11.2, BUN 13, Creatinine 0.64 L, Estimated Creat Clear 110, Estimated GFR 130, Est GFR ( Amer) 158, Glucose 108 H I & O for Last 24 hours: Intake & Output 03/18/18 03/19/18 03/20/18 03/21/18 11:59 11:59 11:59 11:59 Intake Total 850 / 850 1461 / 1461 4795 / 4795 Balance 850 / 850 1461 / 1461 4795 / 4795 Weight 130 lb 6 oz 130 lb 6 oz Microbiology Reports for the Last 24 Hours: Microbiology 03/18/18 18:56 Blood Blood Culture - Preliminary NO GROWTH AFTER 48 HOURS 03/18/18 18:56 Blood Blood Culture - Preliminary NO GROWTH AFTER 48 HOURS 03/20/18 07:40 Sputum - Endotracheal Tube Aspirate Gram Stain - Final Radiology Reports for the Last 24 Hours: Repeat chest x-ray 03/21/2018 IMPRESSION: Worsening left lower lobe pneumonia with effusion - Constitutional Comments: Patient does not respond to most questions. He lies quietly with his eyes closed. - *Routine Respiratory Exam Comments: Bilateral rhonchi and wheezes - *Routine Cardiovascular Exam Present: RRR - *Routine Extremities Exam Absent: edema - *Routine Neurological Exam Somnolent Assessment and Plan (1) Healthcare-associated pneumonia Current visit: Yes Status: Acute Category: Medical Code(s): J18.9 - Pneumonia, unspecified organism (2) Lung cancer metastatic to brain Current visit: No Status: Chronic Category: Medical Code(s): C34.90 - Malignant neoplasm of unspecified part of unspecified bronchus or lung; C79.31 - Secondary malignant neoplasm of brain (3) Thrush, oral Current visit: Yes Status: Acute Category: Medical Code(s): B37.0 - Candidal stomatitis (4) Hospice care patient Current visit: Yes Status: Acute Category: Medical Code(s): Z51.5 - Encounter for palliative care (5) Hx of deep venous thrombosis Current visit: No Status: Chronic Category: Medical Code(s): Z86.718 - Personal history of other venous thrombosis and embolism (6) Anemia Current visit: No Status: Chronic Category: Medical Code(s): D64.9 - Anemia, unspecified (7) Hypoxemia Current visit: Yes Status: Acute Category: Medical Code(s): R09.02 - Hypoxemia (8) Hypokalemia Current visit: No Status: Acute Category: Medical Code(s): E87.6 - Hypokalemia - Assessment and plan all Dx Assessment and Plan for all problems:: Chest x-ray was repeated today. As per Dr. Stewart. <Kirill Stewart - Last Filed: 03/21/18 18:58> Internal Medicine - PN: Subj *Date: 03/21/18 *Time: 18:56 Exam Vital signs and Labs for Last 24 Hours: Temp Pulse Resp BP Pulse Ox 98.9 F 102 H 26 H 113/59 98 03/21/18 16:00 03/21/18 16:00 03/21/18 18:44 03/21/18 16:00 03/21/18 16:00 Laboratory Results - last 24 hr 03/20/18 09:40: Crossmatch (AHG) See Detail 03/20/18 21:23: Specimen Source R/r, O2 % 2, ABG pH 7.45, ABG pCO2 28.8 L, ABG pO2 54.6 L, ABG HCO3 19.6 L, ABG Total CO2 20.5 L, ABG O2 Saturation 90, ABG Base Excess -4.4 L, Rene Test Y 03/21/18 00:45: Sodium 142, Potassium 3.0 L, Chloride 97 L, Carbon Dioxide 24, Anion Gap 24.0 H, BUN 15 D, Creatinine 0.68 L, Estimated Creat Clear 104, Estimated GFR 122, Est GFR ( Amer) 147, Glucose 98 D, Calcium 8.4 L, Total Bilirubin 1.1 H, AST 116 H, ALT 20, Alkaline Phosphatase 274 H, Total Protein 4.6 L, Albumin 1.8 L, Globulin 2.8, Albumin/Globulin Ratio 0.6 L 03/21/18 00:45: Lactic Acid 1.4 03/21/18 06:25: WBC 14.9 H D, RBC 3.96 L D, Hgb 11.1 L, Hct 33.5 L, MCV 84.5, MCH 27.9, MCHC 33.0, RDW 16.4, Plt Count 83 L, MPV 7.5, Neut % (Auto) 91.0 H, Lymph % (Auto) 5.7 L, [place] % (Auto) 2.1, Eos % (Auto) 1.0, Baso % (Auto) 0.2, Neut # (Auto) 13.6 H, Lymph # (Auto) 0.9, [place] # (Auto) 0.3, Eos # (Auto) 0.1, Baso # (Auto) 0.0, Total Counted 100, Neutrophils % (Manual) 93 H, Lymphocytes % (Manual) 3 L, Monocytes % (Manual) 4, Nucleated RBCs 1, Platelet Estimate Moderate decrease, Tear Drop Cells 1+ 03/21/18 06:25: Sodium 135 L, Potassium 3.2 L, Chloride 101, Carbon Dioxide 26, Anion Gap 11.2, BUN 13, Creatinine 0.64 L, Estimated Creat Clear 110, Estimated GFR 130, Est GFR ( Amer) 158, Glucose 108 H I & O for Last 24 hours: Intake & Output 03/19/18 03/20/18 03/21/18 03/22/18 11:59 11:59 11:59 11:59 Intake Total 850 / 850 1461 / 1461 4795 / 4795 Balance 850 / 850 1461 / 1461 4795 / 4795 Weight 130 lb 6 oz 130 lb 6 oz 130 lb 5.996 oz Microbiology Reports for the Last 24 Hours: Microbiology 03/20/18 07:40 Sputum - Endotracheal Tube Aspirate Gram Stain - Final 03/20/18 07:40 Sputum - Endotracheal Tube Aspirate Sputum Culture - Final Yeast 03/18/18 18:56 Blood Blood Culture - Preliminary NO GROWTH AFTER 48 HOURS 03/18/18 18:56 Blood Blood Culture - Preliminary NO GROWTH AFTER 48 HOURS Assessment and Plan (1) Healthcare-associated pneumonia Current visit: Yes Status: Acute Category: Medical Code(s): J18.9 - Pneumonia, unspecified organism (2) Lung cancer metastatic to brain Current visit: No Status: Chronic Category: Medical Code(s): C34.90 - Malignant neoplasm of unspecified part of unspecified bronchus or lung; C79.31 - Secondary malignant neoplasm of brain (3) Thrush, oral Current visit: Yes Status: Acute Category: Medical Code(s): B37.0 - Candidal stomatitis (4) Hospice care patient Current visit: Yes Status: Acute Category: Medical Code(s): Z51.5 - Encounter for palliative care (5) Hx of deep venous thrombosis Current visit: No Status: Chronic Category: Medical Code(s): Z86.718 - Personal history of other venous thrombosis and embolism (6) Anemia Current visit: No Status: Chronic Category: Medical Code(s): D64.9 - Anemia, unspecified (7) Hypoxemia Current visit: Yes Status: Acute Category: Medical Code(s): R09.02 - Hypoxemia (8) Hypokalemia Current visit: No Status: Acute Category: Medical Code(s): E87.6 - Hypokalemia - Assessment and plan all Dx Assessment and Plan for all problems:: Tolerated blood transfusion yesterday and H&H improved but patient remains mostly unresponsive with no po intake. No respiratory distress. Will repeat CXR.
--- NOTE | 2018-03-22 08:41 | Progress Note ---
Internal Medicine - PN: Subj *Date: 03/22/18 *Time: 08:38 Interval history: Considerable decline in condition yesterday. Repeat CXR showed worsening pneumonia. After discussion with Hospice last evening, family has made patient a DNR with only measures of comfort requested. IVF, po meds and IV antibiotics d/c'ed. Family states he rested comfortably last night. Exam Vital signs and Labs for Last 24 Hours: Temp Pulse Resp BP Pulse Ox 100.0 F H 63 16 122/62 96 03/22/18 08:00 03/22/18 08:00 03/22/18 08:00 03/22/18 08:00 03/22/18 08:00 I & O for Last 24 hours: Intake & Output 03/19/18 03/20/18 03/21/18 03/22/18 11:59 11:59 11:59 11:59 Intake Total 850 / 850 1461 / 1461 4795 / 4795 Balance 850 / 850 1461 / 1461 4795 / 4795 Weight 130 lb 6 oz 130 lb 6 oz 130 lb 5.996 oz Microbiology Reports for the Last 24 Hours: Microbiology 03/20/18 07:40 Sputum - Endotracheal Tube Aspirate Gram Stain - Final 03/20/18 07:40 Sputum - Endotracheal Tube Aspirate Sputum Culture - Final Yeast - Constitutional Comments: unresponsive - *Routine Respiratory Exam Comments: respirations unlabored. Noted with bilateral rhonchi Assessment and Plan (1) DNR (do not resuscitate) Current visit: Yes Status: Acute Category: Medical Code(s): Z66 - Do not resuscitate (2) Healthcare-associated pneumonia Current visit: Yes Status: Acute Category: Medical Code(s): J18.9 - Pneumonia, unspecified organism (3) Lung cancer metastatic to brain Current visit: No Status: Chronic Category: Medical Code(s): C34.90 - Malignant neoplasm of unspecified part of unspecified bronchus or lung; C79.31 - Secondary malignant neoplasm of brain (4) Thrush, oral Current visit: Yes Status: Acute Category: Medical Code(s): B37.0 - Candidal stomatitis (5) Hospice care patient Current visit: Yes Status: Acute Category: Medical Code(s): Z51.5 - Encounter for palliative care (6) Hx of deep venous thrombosis Current visit: No Status: Chronic Category: Medical Code(s): Z86.718 - Personal history of other venous thrombosis and embolism (7) Anemia Current visit: No Status: Chronic Category: Medical Code(s): D64.9 - Anemia, unspecified (8) Hypoxemia Current visit: Yes Status: Acute Category: Medical Code(s): R09.02 - Hypoxemia (9) Hypokalemia Current visit: No Status: Acute Category: Medical Code(s): E87.6 - Hypokalemia - Assessment and plan all Dx Assessment and Plan for all problems:: Continue terminal care.
--- NOTE | 2018-03-23 07:55 | Progress Note ---
<Анна Flores - Last Filed: 03/23/18 07:54> Internal Medicine - PN: Subj *Date: 03/23/18 *Time: 07:54 Interval history: Pt is resting comfortably. His states he has not c/o pain. Exam Vital signs and Labs for Last 24 Hours: Temp Pulse Resp BP Pulse Ox 98.1 F 118 H 18 118/62 96 03/22/18 20:00 03/22/18 20:00 03/22/18 20:00 03/22/18 20:00 03/22/18 20:00 I & O for Last 24 hours: Intake & Output 03/20/18 03/21/18 03/22/18 03/23/18 11:59 11:59 11:59 11:59 Intake Total 1461 / 1461 4795 / 4795 0 / 0 Balance 1461 / 1461 4795 / 4795 0 / 0 Weight 130 lb 6 oz 130 lb 5.996 oz - Constitutional no acute distress - *Routine Respiratory Exam Present: rhonchi - *Routine Cardiovascular Exam Present: RRR - *Routine Extremities Exam Absent: edema Assessment and Plan (1) DNR (do not resuscitate) Current visit: Yes Status: Acute Category: Medical Code(s): Z66 - Do not resuscitate (2) Healthcare-associated pneumonia Current visit: Yes Status: Acute Category: Medical Code(s): J18.9 - Pneumonia, unspecified organism (3) Lung cancer metastatic to brain Current visit: No Status: Chronic Category: Medical Code(s): C34.90 - Malignant neoplasm of unspecified part of unspecified bronchus or lung; C79.31 - Secondary malignant neoplasm of brain (4) Thrush, oral Current visit: Yes Status: Acute Category: Medical Code(s): B37.0 - Candidal stomatitis (5) Hospice care patient Current visit: Yes Status: Acute Category: Medical Code(s): Z51.5 - Encounter for palliative care (6) Hx of deep venous thrombosis Current visit: No Status: Chronic Category: Medical Code(s): Z86.718 - Personal history of other venous thrombosis and embolism (7) Anemia Current visit: No Status: Chronic Category: Medical Code(s): D64.9 - Anemia, unspecified (8) Hypoxemia Current visit: Yes Status: Acute Category: Medical Code(s): R09.02 - Hypoxemia (9) Hypokalemia Current visit: No Status: Acute Category: Medical Code(s): E87.6 - Hypokalemia - Assessment and plan all Dx Assessment and Plan for all problems:: Will continue palliative care. <Kirill Stewart - Last Filed: 03/23/18 08:34> Internal Medicine - PN: Subj *Date: 03/23/18 *Time: 08:34 Exam Vital signs and Labs for Last 24 Hours: Temp Pulse Resp BP Pulse Ox 97.5 F L 124 H 20 103/58 93 L 03/23/18 08:00 03/23/18 08:00 03/23/18 08:00 03/23/18 08:00 03/23/18 08:00 I & O for Last 24 hours: Intake & Output 03/20/18 03/21/18 03/22/18 03/23/18 11:59 11:59 11:59 11:59 Intake Total 1461 / 1461 4795 / 4795 0 / 0 Balance 1461 / 1461 4795 / 4795 0 / 0 Weight 130 lb 6 oz 130 lb 5.996 oz Assessment and Plan (1) DNR (do not resuscitate) Current visit: Yes Status: Acute Category: Medical Code(s): Z66 - Do not resuscitate (2) Healthcare-associated pneumonia Current visit: Yes Status: Acute Category: Medical Code(s): J18.9 - Pneumonia, unspecified organism (3) Lung cancer metastatic to brain Current visit: No Status: Chronic Category: Medical Code(s): C34.90 - Malignant neoplasm of unspecified part of unspecified bronchus or lung; C79.31 - Secondary malignant neoplasm of brain (4) Thrush, oral Current visit: Yes Status: Acute Category: Medical Code(s): B37.0 - Candidal stomatitis (5) Hospice care patient Current visit: Yes Status: Acute Category: Medical Code(s): Z51.5 - Encounter for palliative care (6) Hx of deep venous thrombosis Current visit: No Status: Chronic Category: Medical Code(s): Z86.718 - Personal history of other venous thrombosis and embolism (7) Anemia Current visit: No Status: Chronic Category: Medical Code(s): D64.9 - Anemia, unspecified (8) Hypoxemia Current visit: Yes Status: Acute Category: Medical Code(s): R09.02 - Hypoxemia (9) Hypokalemia Current visit: No Status: Acute Category: Medical Code(s): E87.6 - Hypokalemia - Assessment and plan all Dx Assessment and Plan for all problems:: Seen and agree.
--- NOTE | 2018-03-24 08:23 | Progress Note ---
Internal Medicine - PN: Subj *Date: 03/24/18 *Time: 08:21 Interval history: Very little change. Exam Vital signs and Labs for Last 24 Hours: Temp Pulse Resp BP Pulse Ox 99.1 F 134 H 14 99/58 91 L 03/23/18 20:00 03/23/18 20:00 03/23/18 20:00 03/23/18 20:00 03/23/18 23:55 I & O for Last 24 hours: Intake & Output 03/21/18 03/22/18 03/23/18 03/24/18 11:59 11:59 11:59 11:59 Intake Total 4795 / 4795 0 / 0 0 / 0 Balance 4795 / 4795 0 / 0 0 / 0 Weight 130 lb 6 oz 130 lb 5.996 oz Microbiology Reports for the Last 24 Hours: Microbiology 03/18/18 18:56 Blood Blood Culture - Final NO GROWTH AFTER 5 DAYS 03/18/18 18:56 Blood Blood Culture - Final NO GROWTH AFTER 5 DAYS - Constitutional no acute distress Comments: color adequate - *Routine Respiratory Exam Present: rhonchi - *Routine Cardiovascular Exam Present: RRR Assessment and Plan (1) DNR (do not resuscitate) Current visit: Yes Status: Acute Category: Medical Code(s): Z66 - Do not resuscitate (2) Healthcare-associated pneumonia Current visit: Yes Status: Acute Category: Medical Code(s): J18.9 - Pneumonia, unspecified organism (3) Lung cancer metastatic to brain Current visit: No Status: Chronic Category: Medical Code(s): C34.90 - Malignant neoplasm of unspecified part of unspecified bronchus or lung; C79.31 - Secondary malignant neoplasm of brain (4) Thrush, oral Current visit: Yes Status: Acute Category: Medical Code(s): B37.0 - Candidal stomatitis (5) Hospice care patient Current visit: Yes Status: Acute Category: Medical Code(s): Z51.5 - Encounter for palliative care (6) Hx of deep venous thrombosis Current visit: No Status: Chronic Category: Medical Code(s): Z86.718 - Personal history of other venous thrombosis and embolism (7) Anemia Current visit: No Status: Chronic Category: Medical Code(s): D64.9 - Anemia, unspecified (8) Hypoxemia Current visit: Yes Status: Acute Category: Medical Code(s): R09.02 - Hypoxemia (9) Hypokalemia Current visit: No Status: Acute Category: Medical Code(s): E87.6 - Hypokalemia - Assessment and plan all Dx Assessment and Plan for all problems:: Continue measures of comfort.
--- NOTE | 2018-03-25 08:16 | Progress Note ---
<Анна Flores - Last Filed: 03/25/18 08:15> Internal Medicine - PN: Subj *Date: 03/25/18 *Time: 08:15 Interval history: Patient is resting comfortably this morning. His states he has not been in any pain. Exam Vital signs and Labs for Last 24 Hours: Temp Pulse Resp BP Pulse Ox 99.0 F 131 H 18 113/68 96 03/24/18 22:00 03/24/18 22:00 03/24/18 22:00 03/24/18 22:00 03/24/18 22:00 I & O for Last 24 hours: Intake & Output 03/22/18 03/23/18 03/24/18 03/25/18 11:59 11:59 11:59 11:59 Intake Total 0 / 0 0 / 0 Balance 0 / 0 0 / 0 Weight 130 lb 5.996 oz - Constitutional no acute distress - *Routine Respiratory Exam Present: rhonchi - *Routine Cardiovascular Exam Present: tachycardia - *Routine Abdominal Exam Present: soft, normoactive bowel sounds. Absent: tenderness Assessment and Plan (1) DNR (do not resuscitate) Current visit: Yes Status: Acute Category: Medical Code(s): Z66 - Do not resuscitate (2) Healthcare-associated pneumonia Current visit: Yes Status: Acute Category: Medical Code(s): J18.9 - Pneumonia, unspecified organism (3) Lung cancer metastatic to brain Current visit: No Status: Chronic Category: Medical Code(s): C34.90 - Malignant neoplasm of unspecified part of unspecified bronchus or lung; C79.31 - Secondary malignant neoplasm of brain (4) Thrush, oral Current visit: Yes Status: Acute Category: Medical Code(s): B37.0 - Candidal stomatitis (5) Hospice care patient Current visit: Yes Status: Acute Category: Medical Code(s): Z51.5 - Encounter for palliative care (6) Hx of deep venous thrombosis Current visit: No Status: Chronic Category: Medical Code(s): Z86.718 - Personal history of other venous thrombosis and embolism (7) Anemia Current visit: No Status: Chronic Category: Medical Code(s): D64.9 - Anemia, unspecified (8) Hypoxemia Current visit: Yes Status: Acute Category: Medical Code(s): R09.02 - Hypoxemia (9) Hypokalemia Current visit: No Status: Acute Category: Medical Code(s): E87.6 - Hypokalemia - Assessment and plan all Dx Assessment and Plan for all problems:: Continue palliative care. <TerryKirill treadwell - Last Filed: 03/25/18 08:25> Internal Medicine - PN: Subj *Date: 03/25/18 *Time: 08:25 Exam Vital signs and Labs for Last 24 Hours: Temp Pulse Resp BP Pulse Ox 99.0 F 131 H 18 113/68 96 03/24/18 22:00 03/24/18 22:00 03/24/18 22:00 03/24/18 22:00 03/24/18 22:00 I & O for Last 24 hours: Intake & Output 03/22/18 03/23/18 03/24/18 03/25/18 11:59 11:59 11:59 11:59 Intake Total 0 / 0 0 / 0 Balance 0 / 0 0 / 0 Weight 130 lb 5.996 oz Assessment and Plan (1) DNR (do not resuscitate) Current visit: Yes Status: Acute Category: Medical Code(s): Z66 - Do not resuscitate (2) Healthcare-associated pneumonia Current visit: Yes Status: Acute Category: Medical Code(s): J18.9 - Pneumonia, unspecified organism (3) Lung cancer metastatic to brain Current visit: No Status: Chronic Category: Medical Code(s): C34.90 - Malignant neoplasm of unspecified part of unspecified bronchus or lung; C79.31 - Secondary malignant neoplasm of brain (4) Thrush, oral Current visit: Yes Status: Acute Category: Medical Code(s): B37.0 - Candidal stomatitis (5) Hospice care patient Current visit: Yes Status: Acute Category: Medical Code(s): Z51.5 - Encounter for palliative care (6) Hx of deep venous thrombosis Current visit: No Status: Chronic Category: Medical Code(s): Z86.718 - Personal history of other venous thrombosis and embolism (7) Anemia Current visit: No Status: Chronic Category: Medical Code(s): D64.9 - Anemia, unspecified (8) Hypoxemia Current visit: Yes Status: Acute Category: Medical Code(s): R09.02 - Hypoxemia (9) Hypokalemia Current visit: No Status: Acute Category: Medical Code(s): E87.6 - Hypokalemia - Assessment and plan all Dx Assessment and Plan for all problems:: Seen and agree.
[2018-03-25 16:08] VITALS: BP 97/51
--- NOTE | 2018-03-25 19:25 | Death Note ---
Pronouncement Note - Date and Time of Date of : 03/25/18 Time of : 19:10 - PCOD Preliminary cause of : Cardiac arrest - Additional Data Confirmation of : no pulse, no respirations, no heart sounds, pupils fixed and dilated Family: at bedside Attending/PCP notified?: Yes (by staff) Attending physician: Kirill Stewart MD Was code activated?: No Autopsy requested?: No finished yarn examiner notified?: No
--- NOTE | 2018-03-26 08:41 | Discharge Summary ---
General - General Admission date:: 03/18/18 <Kirill Stewart - 04/16/18 23:04> 03/18/18 <Dipti Pino - 03/26/18 08:41> Discharge date: 03/25/18 <OdetteStephanyDipti - 03/26/18 08:41> HPI HPI: Brady is a 52-year-old white male with a history of primary lung cancer with metastases to the brain who has exhausted treatment options and was enrolled in hospice although he was not a DNR status. He was seen in the office 4 days prior to [facility] admission in followup from a hospital admission in [facility] when he suffered an intracranial bleed after a fall. This required no intervention and was resolving. While in the office he was noted to have a congested cough. He did not have a fever. His white count was elevated and he was started on antibiotics. His stated that he had very poor oral intake and was refusing to take most of his medications including the antibiotic that was prescribed. When up to the bathroom he became quite weak and appeared to pass out. Family stated that his eyes rolled back in his head and lips turned blue. He did not appear to be breathing very well. Family called 911 and patient was brought to the ER. On workup in the emergency room, his initial O2 saturation was 99%. He had been on home oxygen and supplemental oxygen in route to the hospital. His white blood cell count was elevated and his lactic acid elevated at 7.5. A chest x- ray showed a persistent left lower lobe infiltrate. Upon reviewing old reports , this infiltrate had been present going back to at least October 2017. It was remarkable to note that his BUN and creatinine were fairly normal. He was admitted and started on triple antibiotic therapy for healthcare acquired pneumonia. He rested well through the night after receiving a single dose of morphine upon arrival to the floor. <OdetteDipti - 03/26/18 08:48> Hospital Course Hospital Course: On admission patient was started on IVF, triple antibiotic coverage, neb treatments, along with comfort measures. He was found to be anemic with a H/H of 7.8/24.2 and low K+ at 3. He received PRBC transfusion and KCL was added to the IVF. WBC initially decreased from 24.6 to 11.9. Initially patient was weak , poorly responsive, and would take PO meds. He became hypoxic but improved after suctioning. He received Morphine for discomfort. He then became less responsive and did not eat or drink and would not allow oral care. H&H did improve to 11.1/33.5. Repeat CXR revealed a worsening pneumonia. 03/21/18 Hospice discussed patient's decline with and other family members. Patient was then made a DNR with comfort measures only. IVF, antibiotics, and all meds were discontinued. Palliative care was continued until he . and other family members were in constant attendance. He was noted to be resting comfortably. 03/25/18 patient at 1910. Body was released to [facility]. <Dipti Pino - 03/26/18 09:20> Objective Vital signs: Temp Pulse Resp BP Pulse Ox 103.8 F H 145 H 8 L 97/51 95 03/25/18 16:00 03/25/18 16:00 03/25/18 16:00 03/25/18 16:00 03/25/18 16:00 <Kirill Stewart - 04/16/18 23:04> Temp Pulse Resp BP Pulse Ox 103.8 F H 145 H 8 L 97/51 95 03/25/18 16:00 03/25/18 16:00 03/25/18 16:00 03/25/18 16:00 03/25/18 16:00 <Dipti Pino - 03/26/18 08:41> Narrative: 03/25/18 in AM - Constitutional no acute distress - *Routine Respiratory Exam Present: rhonchi - *Routine Cardiovascular Exam Present: tachycardia - *Routine Abdominal Exam Present: soft, normoactive bowel sounds. Absent: tenderness <Dipti Pino - 03/26/18 08:56> Results Completed studies during hospitalization [Text1]: 03/18/18 CXR IMPRESSION: Left lower lobe pneumonia slightly worse 03/21/18 repeat CXR IMPRESSION: Worsening left lower lobe pneumonia with effusion Laboratory Tests 03/21/18 03/21/18 06:25 06:25 WBC 14.9 H D RBC 3.96 L D Hgb 11.1 L Hct 33.5 L MCV 84.5 MCH 27.9 MCHC 33.0 RDW 16.4 Plt Count 83 L MPV 7.5 Neut % (Auto) 91.0 H Lymph % (Auto) 5.7 L [place] % (Auto) 2.1 Eos % (Auto) 1.0 Baso % (Auto) 0.2 Neut # (Auto) 13.6 H Lymph # (Auto) 0.9 [place] # (Auto) 0.3 Eos # (Auto) 0.1 Baso # (Auto) 0.0 Total Counted 100 Neutrophils % (Manual) 93 H Lymphocytes % (Manual) 3 L Monocytes % (Manual) 4 Nucleated RBCs 1 Platelet Estimate Moderate decrease Tear Drop Cells 1+ Sodium 135 L Potassium 3.2 L Chloride 101 Carbon Dioxide 26 Anion Gap 11.2 BUN 13 Creatinine 0.64 L Estimated Creat Clear 110 Estimated GFR 130 Est GFR ( Amer) 158 Glucose 108 H Sputum culture revealed yeast. Blood cultures were negative x 2. <Dipti Pino - 03/26/18 08:56> DS: Diagnosis - Discharge Diagnosis (1) Acute respiratory failure with hypoxia Status: Acute (2) Healthcare-associated pneumonia Status: Acute (3) Hospice care patient Status: Acute (4) Hypoxemia Status: Acute (5) Metastatic lung cancer (metastasis from lung to other site) Status: Acute (6) Palliative care patient Status: Acute <TerryKirill Sean - 04/16/18 23:04> (1) Acute respiratory failure with hypoxia Status: Acute (2) Healthcare-associated pneumonia Status: Acute (3) Hospice care patient Status: Acute (4) Hypoxemia Status: Acute (5) Metastatic lung cancer (metastasis from lung to other site) Status: Acute (6) Palliative care patient Status: Acute <Dipti Pino - 03/26/18 09:03> Discharge Plan - Follow up Plan Disposition: <Kirill Stewart - 04/16/18 23:04> Home Medications: Home Medications Medication Instructions Recorded Confirmed Type Magnesium Oxide [Magox 400] 400 mg PO DAILY 11/14/17 03/19/18 History Ondansetron HCl [Ondansetron 8mg 8 mg PO Q6HP PRN 11/14/17 03/18/18 History Tab] Pantoprazole Sodium [Protonix 40mg 40 mg PO HS 11/14/17 03/19/18 History tablet] Potassium Chloride [Klor-con 20 20 meq PO DAILY 11/14/17 03/18/18 History mEq tablet] Baclofen [Lioresal 10mg tablet] 10 mg PO TIDP PRN 02/01/18 03/19/18 History Dexamethasone 10 mg PO TID 02/01/18 03/18/18 History Benzonatate [Benzonatate 200mg Cap] 200 mg PO Q6HP PRN 03/19/18 03/19/18 History levoFLOXacin [Levofloxacin 750MG 750 mg PO DAILY 03/19/18 03/19/18 History Tablet] <Kirill Stewart - 04/16/18 23:04> Prescriptions/Medication Reconciliation: No Action Potassium Chloride [Klor-con 20 mEq tablet] 20 meq PO DAILY Magnesium Oxide [Magox 400] 400 mg PO DAILY Baclofen [Lioresal 10mg tablet] 10 mg PO TIDP PRN PRN Reason: Hiccups Dexamethasone 10 mg PO TID Pantoprazole Sodium [Protonix 40mg tablet] 40 mg PO HS Ondansetron HCl [Ondansetron 8mg Tab] 8 mg PO Q6HP PRN PRN Reason: Nausea And Vomiting Benzonatate [Benzonatate 200mg Cap] 200 mg PO Q6HP PRN PRN Reason: Cough levoFLOXacin [Levofloxacin 750MG Tablet] 750 mg PO DAILY <Kirill Stewart - 04/16/18 23:04>
== END 2018-03-25 19:10 | disposition expired ==
LOC: ER 18:24 → 2ND 18:24 → OBSVTOIN 21:25 → 2ND 21:26
PROVIDERS: ADMIT Family Medicine; ATTEND Family Medicine
CPT/HCPCS: 36415; 71010; 71045; 80048; 80053; 80202; 82803; 82962; 83605; 83880; 84443; 84484; 85007; 85014; 85018; 85025; 86850; 87040; 87070; 87077; 87205; 93005; 94640; 94761; 96365; 99284; J1956; J3370; P9016